=== PATIENT | female | born 1940 | race Caucasian/White ===

== ENCOUNTER 2019-01-02 21:24 | Inpatient (IN) | payer MEDICARE, MEDICAID, SELFPAY | END 2019-01-09 12:45 | disposition home health service (06) | DRG 660 | PROVIDERS: Admitting Provider Internal Medicine; Emergency Provider Emergency Medicine; PCP Internal Medicine; Visit Provider Hospitalist | DX: N10 Acute pyelonephritis (principal); C91.11 Chronic lymphocytic leukemia of B-cell type in remission; I50.32 Chronic diastolic (congestive) heart failure; I13.0 Hypertensive heart and chronic kidney disease with heart failure and stage 1 through stage 4 chronic kidney disease, or unspecified chronic kidney disease; I48.92 Unspecified atrial flutter; N18.4 Chronic kidney disease, stage 4 (severe); N13.2 Hydronephrosis with renal and ureteral calculous obstruction; Z28.21 Immunization not carried out because of patient refusal; Z66 Do not resuscitate; G47.33 Obstructive sleep apnea (adult) (pediatric); J44.9 Chronic obstructive pulmonary disease, unspecified; I48.0 Paroxysmal atrial fibrillation; K21.9 Gastro-esophageal reflux disease without esophagitis; Z86.010 Personal history of colon polyps; F41.8 Other specified anxiety disorders; M81.0 Age-related osteoporosis without current pathological fracture; M10.9 Gout, unspecified; E55.9 Vitamin D deficiency, unspecified; D63.1 Anemia in chronic kidney disease; Z98.41 Cataract extraction status, right eye; Z98.42 Cataract extraction status, left eye; Z96.1 Presence of intraocular lens; Z96.651 Presence of right artificial knee joint; Z85.820 Personal history of malignant melanoma of skin; N39.41 Urge incontinence; E66.9 Obesity, unspecified; E78.5 Hyperlipidemia, unspecified; Z92.21 Personal history of antineoplastic chemotherapy; Z90.710 Acquired absence of both cervix and uterus; M19.90 Unspecified osteoarthritis, unspecified site; I25.2 Old myocardial infarction; E83.42 Hypomagnesemia; B96.20 Unspecified Escherichia coli [E. coli] as the cause of diseases classified elsewhere | CPT/HCPCS: 36415; 51701; 71045; 74018; 74176; 74420; 80048; 80053; 80069; 81001; 83605; 83735; 83880; 84100; 84484; 85025; 87040; 87077; 87086; 87088; 87186; 93005; 94640; 96361; 96365; 96375; 96376; 99285; A9270; C2617; G0378; J0131; J0696; J1335; J2060; J2270; J2405; J2543; J2704; J3475; J7030; J7050; Q9966 ==

== ENCOUNTER 2019-05-25 10:55 | Outpatient (CLI) | payer MEDICARE, MEDICAID, SELFPAY ==
[2019-05-25 12:01] LABS: Basophils Percent Auto 0.6 % (0.2-1.2); Eosinophils Absolute Auto 0.3 K/mm3 (0-0.3); Eosinophils Percent Auto 4.3 % (0-4.4); Hematocrit 31.8 % (37.0-47.0); Hemoglobin 10.6 g/dL (12.0-15.0); Immature Granulocyte Absolute 0.02 K/mm3 (0.00-0.031); Immature Granulocyte Percent A 0.3 % (0-0.5); Lymphocytes Absolute Auto 1.19 K/mm3 (0.9-3.2); Lymphocytes Percent Auto 18.9 % (18.3-44.2); Mean Corpuscular HGB Conc 33.3 g/dl (32-36); Mean Corpuscular Hemoglobin 31.2 pg (26-34); Mean Corpuscular Volume 93.5 fl (80-100); Mean Platelet Volume 11.1 fl (7.4-10.4); Monocytes Absolute Auto 0.5 K/mm3 (0.1-0.6); Monocytes Percent Auto 8.1 % (2.6-8.5); Neutrophils Absolute Auto 4.3 K/mm3 (1.3-6.7); Neutrophils Percent Auto 67.8 % (45.5-73.1); Platelet Count Result 175 k/mm3 (150-375); White Blood Count 6.3 K/mm3 (4.5-10.0)
[2019-05-25 12:08] LABS: Alanine Aminotransferase 15 U/L (4-35); Albumin Level 3.8 g/dL (3.5-5.1); Alkaline Phosphatase 113 U/L (38-126); Aspartate Amino Transferase 19 U/L (14-36); Bilirubin,Total 0.3 mg/dL (0.2-1.3); Blood Urea Nitrogen 26 mg/dL (7-17); Calcium 9.4 mg/dL (8.4-10.2); Carbon Dioxide 25 mmol/L (22-30); Chloride 106 mmol/L (98-107); Cholesterol 147 mg/dL (0-200); Estimated Glomerular Filt Rate 26; Glucose 97 mg/dL (65-105); HDL Direct 41 mg/dL; Magnesium 1.5 mg/dL (1.6-2.3); Potassium 4.4 mmol/L (3.4-5.0); Sodium 138 mmol/L (137-145); Triglycerides 98 mg/dL (<150)
[2019-05-25 12:19] LABS: LDL Cholesterol Direct 89 mg/dL
[2019-05-30 14:55] LABS: BCR/abl Prior Result See Report
[2019-05-30 15:28] LABS: BCR/abl P190 Not Detected; BCR/abl P210 Not Detected
[2019-05-30 15:29] LABS: BCR/abl P190 Chg YES; BCR/abl P210 Chg YES
== END 2019-05-25 10:56 | disposition home or self-care (01) ==
PROVIDERS: Visit Provider Internal Medicine
DX: C92.10 Chronic myeloid leukemia, BCR/ABL-positive, not having achieved remission (principal); I10 Essential (primary) hypertension; E78.5 Hyperlipidemia, unspecified; Z79.899 Other long term (current) drug therapy
CPT/HCPCS: 36415; 80053; 80061; 81206; 81207; 83735; 85025

== ENCOUNTER → 2019-06-22 16:21 | Outpatient (CLI) | payer MEDICARE, MEDICAID, SELFPAY ==
--- NOTE | ~2019-06-22 | XR_ITS ---
EXAMINATION: XR abdomen/kub 1V INDICATION: Right flank pain TECHNIQUE: Supine views of the abdomen were obtained on 2 radiographs. COMPARISON: 01/04/2019 FINDINGS: The right internal ureteral stent has been removed. No definite urinary tract calculi are i dentified. The bowel gas pattern is normal. There is severe lumbar spondylosis. IMPRESSION: 1. No urinary tract calculi identified. Right internal ureteral stent removed. Reviewed, dictated and finalized at location A.
== END ==
PROVIDERS: PCP Internal Medicine; Visit Provider Urology
DX: R10.9 Unspecified abdominal pain (principal)
CPT/HCPCS: 74018

== ENCOUNTER 2019-10-05 11:22 | Outpatient (CLI) | payer MEDICARE, MEDICAID, SELFPAY ==
[2019-10-05 11:51] LABS: Basophils Percent Auto 0.6 % (0.2-1.2); Eosinophils Absolute Auto 0.2 K/mm3 (0-0.3); Eosinophils Percent Auto 2.6 % (0-4.4); Hematocrit 34.3 % (37.0-47.0); Hemoglobin 11.2 g/dL (12.0-15.0); Immature Granulocyte Absolute 0.02 K/mm3 (0.00-0.031); Immature Granulocyte Percent A 0.3 % (0-0.5); Lymphocytes Percent Auto 19.8 % (18.3-44.2); Mean Corpuscular HGB Conc 32.7 g/dl (32-36); Mean Corpuscular Hemoglobin 31.3 pg (26-34); Mean Corpuscular Volume 95.8 fl (80-100); Mean Platelet Volume 10.5 fl (7.4-10.4); Monocytes Absolute Auto 0.4 K/mm3 (0.1-0.6); Monocytes Percent Auto 6.6 % (2.6-8.5); Neutrophils Absolute Auto 4.6 K/mm3 (1.3-6.7); Neutrophils Percent Auto 70.1 % (45.5-73.1); Platelet Count Result 194 k/mm3 (150-375); Red Blood Count 3.58 M/mm3 (4.2-5.4); Red Cell Distribution Width 13.7 % (11.5-14.5); White Blood Count 6.6 K/mm3 (4.5-10.0)
[2019-10-05 12:03] LABS: Alanine Aminotransferase 24 U/L (4-35); Albumin Level 3.8 g/dL (3.5-5.1); Alkaline Phosphatase 125 U/L (38-126); Aspartate Amino Transferase 27 U/L (14-36); Bilirubin,Total 0.3 mg/dL (0.2-1.3); Blood Urea Nitrogen 28 mg/dL (7-17); Calcium 9.2 mg/dL (8.4-10.2); Carbon Dioxide 25 mmol/L (22-30); Chloride 104 mmol/L (98-107); Estimated Glomerular Filt Rate 29; Glucose 101 mg/dL (65-105); Sodium 137 mmol/L (137-145)
[2019-10-09 13:54] LABS: BCR/abl Prior Result See Report; BCR/abl1/abl1% (IS) 0.032 %
[2019-10-09 14:40] LABS: BCR/abl P210 Detected
[2019-10-09 14:41] LABS: BCR/abl P210 Chg YES
== END 2019-10-05 11:23 | disposition home or self-care (01) ==
PROVIDERS: PCP Internal Medicine; Visit Provider Internal Medicine Medical Oncology
DX: C92.10 Chronic myeloid leukemia, BCR/ABL-positive, not having achieved remission (principal)
CPT/HCPCS: 36415; 80053; 81207; 85025

== ENCOUNTER 2019-11-11 14:55 | Outpatient (CLI) | payer MEDICARE, MEDICAID, SELFPAY ==
--- NOTE | ~2019-11-11 | XR_ITS ---
EXAMINATION: XR abdomen/kub 1V DATE: 11/11/2019 15:15 INDICATION: Right flank pain TECHNIQUE: A supine view of the abdomen on 2 radiographs was obtained. COMPARISON: 06/22/2019 FINDINGS: Normal bowel gas pattern with no dilated gas-filled loops of bowel. Similar pattern of tiny round phl eboliths and thin curvilinear atherosclerotic calcifications in the pelvis. Additional atheroscleroti c calcification is along the splenic artery and the left upper quadrant. No evident urolithiasis. 20 degrees lumbar levoscoliosis measured between T12 and L3. IMPRESSION: 1. No calcifications suspicious for urolithiasis. Reviewed, dictated and finalized at location A.
== END 2019-11-11 14:56 | disposition home or self-care (01) ==
LOC: ANHIMG 15:01
PROVIDERS: PCP Internal Medicine; Visit Provider Urology
DX: R10.9 Unspecified abdominal pain (principal)
CPT/HCPCS: 74018

== ENCOUNTER 2020-02-03 12:41 | Outpatient (CLI) | payer MEDICARE, MEDICAID, SELFPAY ==
--- NOTE | 2020-02-03 15:00 | NEURO_ITS ---
Impression: # Complains of paresthesia of upper and lower extremities. # Significant edema of lower extremities noted. # Evolving left Carpal Tunnel Syndrome. # Right ulnar neuropathy across the elbow. # Decreased responses in lower extremities (edema of lower extremities). # Needle/EMG exam revealed decreased motor unit potentials. No fibs or fasciculation noted. Nerve Conduction Studies Anti Sensory Summary Table Stim Site NR Peak (ms) P-T Amp (?V) Site1 Site2 Delta-P (ms) Dist (cm) [place] (m/s) Left Median Anti Sensory (2-3nd Digit) Wrist 3.5 26.7 Wrist 2-3nd Digit 3.5 14.0 40 Wrist 3.3 11.5 Wrist 2-3nd Digit 3.5 14.0 40 Right Median Anti Sensory (2-3nd Digit) Wrist 2.9 39.1 Wrist 2-3nd Digit 2.9 14.0 48 Wrist 2.8 41.5 Wrist 2-3nd Digit 2.9 14.0 48 Left Radial Anti Sensory (Base 1st Digit) Wrist 2.3 16.7 Wrist Base 1st Digit 2.3 0.0 Right Radial Anti Sensory (Base 1st Digit) Wrist 2.6 13.8 Wrist Base 1st Digit 2.6 0.0 Left Sup Fibular Anti Sensory (Ant Lat Mall) 14 cm 3.9 5.2 14 cm Ant Lat Mall 3.9 16.0 41 Right Sup Fibular Anti Sensory (Ant Lat Mall) 14 cm 3.8 19.5 14 cm Ant Lat Mall 3.8 16.0 42 Left Sural Anti Sensory (Lat Mall) Calf 3.9 10.4 Calf Lat Mall 3.9 16.0 41 Right Sural Anti Sensory (Lat Mall) Calf 3.6 11.8 Calf Lat Mall 3.6 16.0 44 Left Ulnar Anti Sensory (5th Digit) Wrist 2.7 29.3 Wrist 5th Digit 2.7 14.0 52 Right Ulnar Anti Sensory (5th Digit) Wrist 2.7 26.7 Wrist 5th Digit 2.7 14.0 52 Motor Summary Table Stim Site NR Onset (ms) O-P Amp (mV) Site1 Site2 Delta-0 (ms) Dist (cm) [place] (m/s) Left Median Motor (Abd Poll Brev) Wrist 4.1 2.5 Elbow Wrist 5.3 31.0 58 Elbow 9.4 2.0 Right Median Motor (Abd Poll Brev) Wrist 3.1 1.7 Elbow Wrist 4.8 26.0 54 Elbow 7.9 0.9 Left Peroneal Motor (Vastus Med) Ankle 4.4 1.0 Popit Ankle 7.5 37.0 49 Popit 11.9 0.9 Right Peroneal Motor (Vastus Med) Ankle 4.0 2.8 Popit Ankle 8.5 38.0 45 Popit 12.5 0.9 Left Tibial Motor (Abd Johnson Brev) Ankle 4.9 1.0 Knee Ankle 9.1 41.0 45 Knee 14.0 0.3 Right Tibial Motor (Abd Johnson Brev) Ankle 4.5 2.5 Knee Ankle 9.3 41.0 44 Knee 13.8 0.3 Left Ulnar Motor (Abd Dig Minimi) Wrist 2.6 6.3 A Elbow Wrist 5.1 29.0 57 A Elbow 7.7 4.6 Right Ulnar Motor (Abd Dig Minimi) Wrist 2.4 4.9 A Elbow Wrist 6.3 28.0 44 A Elbow 8.7 2.3 B Elbow Wrist 4.4 20.0 45 B Elbow 6.8 1.2 F Wave Studies NR F-Lat (ms) L-R F-Lat (ms) Left Median (Mrkrs) (Abd Poll Brev) 29.92 0.43 Right Median (Mrkrs) (Abd Poll Brev) 30.35 0.43 Left Peroneal (Mrkrs) (EDB) 55.23 1.18 Right Peroneal (Mrkrs) (EDB) 56.41 1.18 Left Tibial (Mrkrs) (Abd Hallucis) 57.69 0.00 Right Tibial (Mrkrs) (Abd Hallucis) 57.69 0.00 Left Ulnar (Mrkrs) (Abd Dig Min) 30.68 0.00 Right Ulnar (Mrkrs) (Abd Dig Min) 30.68 0.00 EMG Side Muscle Nerve Root Ins Act Fibs Amp Dur Recrt Comment Right 1stDorInt Ulnar C8-T1 Nml Nml Nml Nml Nml Right Ext Indicis Radial (Post Int) C7-8 Nml Nml Nml Nml Nml Right Ext Digitorum Radial (Post Int) C7-8 Nml Nml Nml Nml Nml Right BrachioRad Radial C5-6 Nml Nml Nml N
== END 2020-02-03 12:42 | disposition home or self-care (01) ==
LOC: ANHNEURO 12:42
PROVIDERS: PCP Internal Medicine; Visit Provider Internal Medicine
DX: R20.2 Paresthesia of skin (principal); G56.02 Carpal tunnel syndrome, left upper limb; G56.21 Lesion of ulnar nerve, right upper limb
CPT/HCPCS: 95886; 95913

== ENCOUNTER 2020-05-19 09:24 | Outpatient (CLI) | payer MEDICARE, MEDICAID, SELFPAY ==
--- NOTE | ~2020-05-19 | XR_ITS ---
EXAMINATION: XR lumbar spine 2-3V EXAM DATE: 05/19/2020 09:52 INDICATION: M54.5 - Low back pain, no known recent injury. TECHNIQUE: Lumber spine frontal, lateral, lateral L5-S1 projections for interpretation. Comparison is made to prior examination from 11/11/2004. FINDINGS: There is mild to moderate levoscoliosis centered at the L1-2 level. Moderate to severe disc disease L1-2 and L2-3, mild at the other thoracolumbar levels. Scoliosis and disc disease have signi ficantly progressed compared to 2004. There is moderate lumbar facet arthropathy. There is aortic art eriosclerosis. IMPRESSION: 1. Mild to moderate upper lumbar levoscoliosis. 2. Moderate to severe L1-L3 disc disease. 3. Moderate facet arthropathy. Reviewed, dictated and finalized at location A. E CONSULTANT
[2020-05-19 09:43] LABS: Basophils Percent Auto 0.4 % (0.2-1.2); Eosinophils Absolute Auto 0.3 K/mm3 (0-0.3); Eosinophils Percent Auto 4.3 % (0-4.4); Hematocrit 34.6 % (37.0-47.0); Hemoglobin 11.2 g/dL (12.0-15.0); Immature Granulocyte Absolute 0.02 K/mm3 (0.00-0.031); Immature Granulocyte Percent A 0.3 % (0-0.5); Lymphocytes Absolute Auto 1.47 K/mm3 (0.9-3.2); Mean Corpuscular HGB Conc 32.4 g/dl (32-36); Mean Corpuscular Hemoglobin 31.7 pg (26-34); Mean Platelet Volume 10.4 fl (7.4-10.4); Monocytes Absolute Auto 0.5 K/mm3 (0.1-0.6); Monocytes Percent Auto 6.9 % (2.6-8.5); Neutrophils Absolute Auto 4.4 K/mm3 (1.3-6.7); Neutrophils Percent Auto 66.1 % (45.5-73.1); Platelet Count Result 171 k/mm3 (150-375); Red Blood Count 3.53 M/mm3 (4.2-5.4); Red Cell Distribution Width 14.1 % (11.5-14.5); White Blood Count 6.7 K/mm3 (4.5-10.0)
[2020-05-19 10:05] LABS: Alanine Aminotransferase 14 U/L (4-35); Alkaline Phosphatase 110 U/L (38-126); Anion Gap 2 mmol/L (8-16); Aspartate Amino Transferase 19 U/L (14-36); Bilirubin,Total 0.3 mg/dL (0.2-1.3); Blood Urea Nitrogen 34 mg/dL (7-17); Calcium 9.5 mg/dL (8.4-10.2); Carbon Dioxide 31 mmol/L (22-30); Chloride 104 mmol/L (98-107); Cholesterol 134 mg/dL (0-200); Estimated Glomerular Filt Rate 27; Glucose 101 mg/dL (65-105); HDL Direct 46 mg/dL; Potassium 4.5 mmol/L (3.4-5.0); Sodium 137 mmol/L (137-145); Triglycerides 111 mg/dL (<150)
[2020-05-19 10:15] LABS: LDL Cholesterol Direct 69 mg/dL
[2020-05-19 10:28] LABS: Iron 76 ug/dL (37-170)
[2020-05-19 10:37] LABS: Percent Iron Saturation 20 % (20-50)
== END 2020-05-19 09:25 | disposition home or self-care (01) ==
PROVIDERS: PCP Internal Medicine; Visit Provider Internal Medicine
DX: E78.5 Hyperlipidemia, unspecified (principal); D63.1 Anemia in chronic kidney disease; N18.4 Chronic kidney disease, stage 4 (severe); Z79.899 Other long term (current) drug therapy; I12.9 Hypertensive chronic kidney disease with stage 1 through stage 4 chronic kidney disease, or unspecified chronic kidney disease; M51.36 Other intervertebral disc degeneration, lumbar region
CPT/HCPCS: 36415; 72100; 80053; 80061; 83540; 83550; 85025

== ENCOUNTER 2020-06-02 10:25 | Outpatient (CLI) | payer MEDICARE, MEDICAID, SELFPAY ==
[2020-06-02 11:17] LABS: Basophils Absolute Auto 0.1 K/mm3 (0.0-0.1); Basophils Percent Auto 0.6 % (0.2-1.2); Eosinophils Absolute Auto 0.3 K/mm3 (0-0.3); Eosinophils Percent Auto 3.6 % (0-4.4); Hematocrit 33.9 % (37.0-47.0); Hemoglobin 11.2 g/dL (12.0-15.0); Immature Granulocyte Absolute 0.04 K/mm3 (0.00-0.031); Immature Granulocyte Percent A 0.5 % (0-0.5); Lymphocytes Absolute Auto 1.64 K/mm3 (0.9-3.2); Lymphocytes Percent Auto 20.2 % (18.3-44.2); Mean Corpuscular Volume 96.9 fl (80-100); Monocytes Absolute Auto 0.5 K/mm3 (0.1-0.6); Monocytes Percent Auto 6.7 % (2.6-8.5); Neutrophils Absolute Auto 5.6 K/mm3 (1.3-6.7); Neutrophils Percent Auto 68.4 % (45.5-73.1); Platelet Count Result 187 k/mm3 (150-375); Red Cell Distribution Width 13.9 % (11.5-14.5); White Blood Count 8.1 K/mm3 (4.5-10.0)
[2020-06-02 11:28] LABS: Alanine Aminotransferase 17 U/L (4-35); Albumin Level 3.9 g/dL (3.5-5.1); Alkaline Phosphatase 104 U/L (38-126); Anion Gap 8 mmol/L (8-16); Aspartate Amino Transferase 24 U/L (14-36); Bilirubin,Total 0.4 mg/dL (0.2-1.3); Blood Urea Nitrogen 33 mg/dL (7-17); Carbon Dioxide 27 mmol/L (22-30); Chloride 102 mmol/L (98-107); Estimated Glomerular Filt Rate 27; Glucose 100 mg/dL (65-105); Potassium 4.7 mmol/L (3.4-5.0); Sodium 137 mmol/L (137-145)
== END 2020-06-02 10:26 | disposition home or self-care (01) ==
PROVIDERS: PCP Internal Medicine; Visit Provider Internal Medicine Medical Oncology
DX: C92.10 Chronic myeloid leukemia, BCR/ABL-positive, not having achieved remission (principal)
CPT/HCPCS: 36415; 80053; 85025; 88365

== ENCOUNTER 2020-09-26 15:43 | Inpatient (IN) | payer MEDICARE, MEDICAID, SELFPAY ==
[2020-09-26] VITALS (8 sets, daily range): BP systolic 123–158; BP diastolic 60–87; PULSE 67–96; RESP 18–24; TEMP 37.3–37.7; O2SAT 95–99; BMI 38.7
--- NOTE | ~2020-09-26 | XR_ITS ---
XR chest 2V DATE: 09/26/2020 16:49 INDICATION: Cough. History of COPD, asthma TECHNIQUE: PA and lateral views COMPARISON: 01/04/2019 portable AP chest 12/26/2018 2 view chest FINDINGS: Borderline heart size. Aortic calcification. Left-sided dual-lead pacemaker device with leads overlying right atrium and right ventricle. Minimal atelectasis is suggested in the lower lung zones. There is mild linear atelectasis or fibroti c change suggested over the anterior segment of the lungs on the lateral view, stable or mildly incre ased since 12/26/2018. Diffuse osteopenia. Prominent degenerative changes are noted in the thoracolumbar spine area. IMPRESSION: Minimal atelectasis at the lung bases Probable chronic linear atelectasis or scarring in the region of the anterior segment of the upper lo bes on the lateral view More definitive evaluation may be of assistance with CT thorax examination. Reviewed, dictated and finalized at location B. IMPRESSION: Minimal atelectasis at the lung bases Probable chronic linear atelectasis or scarring in the region of the anterior s egment of the upper lobes on the lateral view More definitive evaluation may be of assistance with CT thorax examination.
--- NOTE | ~2020-09-26 | CT_ITS ---
EXAMINATION: CT diagnostic chest wo con EXAM DATE: 09/26/2020 20:28 INDICATION: Worsening cough. TECHNIQUE: Spiral CT of the chest without contrast. Axial, coronal and sagittal images of the chest were reviewed. Coronal maximum intensity pixel images of chest reviewed. The dose-length product ( DLP) for this examination was 264.84 mGy-cm. The exposure was tailored according to patient size (au to mA exposure control), and iterative reconstruction (ASIR) was used as additional dose reduction te chnique. Correlation is made to chest x-ray earlier same date. FINDINGS: Small to moderate amount of bilateral patchy peripheral predominant groundglass opacities. Appearance is typical of early stage COVID 19 pneumonia. Less likely acute possibilities include in fluenza, pulmonary edema or hemorrhage. Some chronic processes that can have this appearance include cryptogenic organizing pneumonia, desquamative interstitial pneumonia, nonspecific interstitial pneum onia, drug toxicity, connective tissue disease. Please clinically correlate and test as appropriate. There are no pleural or pericardial effusions. Tracheobronchial tree is patent. There is no media stinal, hilar or axillary lymphadenopathy. There is no pneumothorax. Heart normal in size. Pace maker/AICD device. There is small sliding gastroesophageal hiatal hernia. Incompletely imaged fluid density lesion superior pole right kidney statistically most likely cyst. There is thoracic spondylo sis without osteoblastic or osteolytic lesions identified. IMPRESSION: Patchy bilateral groundglass airspace disease. COVID pneumonia should be considered given community prevalence, with less likely possibilities above. Reviewed, dictated and finalized at location A. IMPRESSION: Patchy bilateral groundglass airspace disease. COVID pneumonia shou ld be considered given community prevalence, with less likely possibilities abo ve.
[2020-09-26 16:19] LABS: Basophils Percent Auto 0.4 % (0.2-1.2); Eosinophils Percent Auto 0.4 % (0-4.4); Hematocrit 40.1 % (37.0-47.0); Hemoglobin 13.1 g/dL (12.0-15.0); Immature Granulocyte Absolute 0.03 K/mm3 (0.00-0.031); Immature Granulocyte Percent A 0.6 % (0-0.5); Lymphocytes Absolute Auto 1.24 K/mm3 (0.9-3.2); Lymphocytes Percent Auto 23.8 % (18.3-44.2); Mean Corpuscular HGB Conc 32.7 g/dl (32-36); Mean Corpuscular Hemoglobin 30.8 pg (26-34); Mean Corpuscular Volume 94.4 fl (80-100); Mean Platelet Volume 10.7 fl (7.4-10.4); Monocytes Absolute Auto 0.5 K/mm3 (0.1-0.6); Monocytes Percent Auto 9.2 % (2.6-8.5); Neutrophils Absolute Auto 3.4 K/mm3 (1.3-6.7); Neutrophils Percent Auto 65.6 % (45.5-73.1); Platelet Count Result 211 k/mm3 (150-375); Red Blood Count 4.25 M/mm3 (4.2-5.4); Red Cell Distribution Width 14.2 % (11.5-14.5); White Blood Count 5.2 K/mm3 (4.5-10.0)
[2020-09-26 16:26] LABS: Alanine Aminotransferase 15 U/L (4-35); Albumin Level 4.4 g/dL (3.5-5.1); Alkaline Phosphatase 113 U/L (38-126); Anion Gap 13 mmol/L (8-16); Aspartate Amino Transferase 29 U/L (14-36); Bilirubin,Total 0.5 mg/dL (0.2-1.3); Blood Urea Nitrogen 19 mg/dL (7-17); Calcium 9.4 mg/dL (8.4-10.2); Carbon Dioxide 22 mmol/L (22-30); Chloride 99 mmol/L (98-107); Estimated CRCL calculation 26 ml/min; Estimated Glomerular Filt Rate 29; Glucose 88 mg/dL (65-105); Lipase 98 U/L (23-300); Potassium 3.8 mmol/L (3.4-5.0); Sodium 134 mmol/L (137-145)
--- NOTE | 2020-09-26 19:16 | ED.URI ---
HPI - URI/Sore Throat General Chief Complaint: Upper Respiratory Infection Stated Complaint: coughing Time Seen by Provider: 09/26/20 19:01 Source: patient and RN notes reviewed Mode of arrival: wheelchair Limitations: no limitations History of Present Illness HPI Narrative: This is a 80 year old female with history of asthma who presents for evaluation of worsening cough. She reports having a nonproductive cough for 2 weeks. Her cough is getting worse and she is having cough spells that cause her to feel sob and dizzy. She also reports chest tightness. She uses albuterol nebulizer twice a day and this does improve her tightness. She also reports she developed fever 2 days ago and she had fever 102 F last night. She denies sick contacts but she is not vaccinated for covid. She also reports diarrhea today that is watery but she denies abdominal pain, nausea or vomiting. She thinks she is passing blood in her urine. Related Data Home Medications Medication Instructions Recorded Confirmed aspirin 81 mg tablet,delayed 81 mg PO DAILY 02/17/19 09/27/20 release diphenhydramine HCl 25 mg tablet 25 mg PO TID 02/17/19 09/27/20 isosorbide mononitrate 30 mg 30 mg PO DAILY 05/15/20 09/27/20 tablet,extended release 24 hr albuterol sulfate [ProAir HFA] 2 puff INHALATION Q6H PRN 09/27/20 09/27/20 allopurinol 100 mg PO DAILY 09/27/20 09/27/20 bumetanide 1 mg PO DAILY 09/27/20 09/27/20 cholecalciferol (vitamin D3) 50 mcg PO DAILY 09/27/20 09/27/20 cyanocobalamin (vitamin B-12) 2,500 mcg SUBLINGUAL DAILY 09/27/20 09/27/20 esomeprazole magnesium 40 mg PO DAILY 09/27/20 09/27/20 fluticasone propion-salmeterol 1 inh INHALATION BID 09/27/20 09/27/20 [Preethi Inhub] lamotrigine 25 mg PO DAILY 09/27/20 09/27/20 magnesium oxide 400 mg PO DAILY 09/27/20 09/27/20 melatonin 5 mg PO HS 09/27/20 09/27/20 potassium chloride 20 meq PO DAILY 09/27/20 09/27/20 simvastatin 40 mg PO DAILY 09/27/20 09/27/20 sotalol 80 mg PO BID 09/27/20 09/27/20 triamcinolone acetonide 1 applic TOPICAL BID 09/27/20 09/27/20 Allergies Allergy/AdvReac Type Severity Reaction Status Date / Time lisinopril Allergy Intermediate Unknown Verified 09/27/20 00:31 nitroglycerin Allergy Mild SKIN RASH Verified 09/27/20 00:31 UNDER NITRO PATCH NORMA Inhibitors Allergy Unknown Unknown Verified 09/27/20 00:31 phenazopyridine Allergy Unknown Unknown Verified 09/27/20 00:31 Review of Systems Review of Systems: All systems reviewed & are unremarkable except as noted in HPI and below PMFSH Past Medical History Medical History (Updated 09/27/20 @ 07:25 by Colleen Moses MD) Anemia of chronic disease Benign essential hypertension Chronic obstructive pulmonary disease, unspecified CKD (chronic kidney disease) stage 4, GFR 15-29 ml/min CML (chronic myelocytic leukemia) in remission since 2016 Depression with anxiety Diastolic CHF echo August 2017 GERD (gastroesophageal reflux disease) Gout Hyperlipidemia DIVINA (obstructive sleep apnea) (~11/2018) BiPAP 12/20 Osteoporosis Paroxysmal A-fib Peripheral neuropathy Sick sinus syndrome Umbilical hernia without obstruction and without gangrene Vitamin D deficiency Surgical History Surgical History (Updated 09/27/20 @ 03:12 by Myranda Day DO) Cardiac pacemaker in situ (~08/2017) History of appendectomy History of bladder surgery History of colonoscopy with polypectomy History of melanoma excision right nares History of total hysterectomy with bilateral salpingo-oophorectomy (BSO) History of total right knee replacement (~10/2008) Status post cataract extraction of both eyes with insertion of intraocular lens Status post cholecystectomy Family History Family History (Updated 09/27/20 @ 03:16 by Myranda Day DO) Mother Hypertension Breast cancer Heart disease Father Coronary artery disease Sibling Congestive heart failure Heart disease Lung cancer brother Bone cancer
--- NOTE | 2020-09-26 19:22 | ECG_ITS ---
Measurements Intervals [place] Rate: 75 P: 129 NE: 233 QRS: -35 QRSD: 76 T: 54 QT: 392 QTc: 438 Interpretive Statements ELECTRONIC ATRIAL PACEMAKER LEFT AXIS DEVIATION LOW QRS VOLTAGE IN PRECORDIAL LEADS POOR R WAVE PROGRESSION, ANTERIOR LEADS BORDERLINE ST-T WAVE ABNORMALITY- HIGH LATERAL LEADS BASELINE ARTIFACT- I, II, III, AVR, AVL, AVF, V1-V6 BORDERLINE ECG Electronically Signed On 09-26-2020 20:31:48 CDT by Mike Savage D.O.
[2020-09-26 19:38] LABS: Alveolar/Arterial O2 Gradient 42.7 mmHg; Base Excess ABG -5.2 mEq/l (+/-2.0); Carboxyhemoglobin 0.4 % THb (0-2.0); Fractional Inspired Oxygen 21 %; Methemoglobin ABG 0.1 %THb (0-1.5); Oxygen Saturation ABG 93.3 % (95.0-100.0); Oxyhemoglobin 92.8 % THb (90.0-100.0); PO2 ABG 67.5 mmHg (80.0-100.0); PO2 FiO2 Ratio Arterial Blood 3.21 %; Reduced Hemoglobin 6.7 %THb (0-5.0); pH ABG 7.378 (7.350-7.450)
[2020-09-26 19:39] LABS: Device ROOM AIR; Modified Allen's Test Pass; Site Drawn RIGHT RADIAL
[2020-09-26] MEDS: IPRATROPIUM BR 0.02% INH SOLN 0.5 MG/2.5 ML VIAL INHALATION (19:42)
[2020-09-26] MEDS: ALBUTEROL SULFATE NEB 2.5 MG/0.5 ML INH 5 MG INHALATION (19:42)
[2020-09-26] MEDS: predniSONE 20 MG TABLET 60 MG PO (19:52)
[2020-09-26 20:05] LABS: Troponin I 0.029 ng/mL (0.000-0.034)
[2020-09-26 20:40] LABS: Prothrombin Time 12.7 Seconds (11.1-14.7)
[2020-09-26 20:43] LABS: Partial Thromboplastin Time 29.8 SECONDS (22.3-36.8)
[2020-09-26] MEDS: LACTATED RINGERS 1,000 ML 999 ML IV CONT (21:54)
--- NOTE | 2020-09-26 23:21 | ADMGEN ---
This patient, Edel Rush, was admitted to 3 Med Surg Room 315-01 at 2315 . Patient/family oriented to hospital policies and general routines including ID bracelet, bed and alarms, visiting hours, pain management, procedures, bathroom and other care routines, personal items, smoking policy, room service/diet, and visiting hours. Information on how to activate the Rapid Response Team has been discussed. Patient/Family are encouraged to report perceived risks to care and to ask questions if they do not understand what they are told or what they should do.
[2020-09-27] VITALS (10 sets, daily range): BP systolic 136–167; BP diastolic 60–96; PULSE 66–78; RESP 14–22; TEMP 36–36.9; O2SAT 93–97
--- NOTE | 2020-09-27 02:52 | PM.IMHP ---
H&P: HPI History of Present Illness Date/Time: 09/27/20 02:52 Chief Complaint: Fever Narrative: 80-year-old female with a past medical history COPD, chronic kidney disease, CML (in remission), obstructive sleep apnea and essential hypertension who presented to the ER for fever and cough. The patient reported that she had had 2 weeks of nonproductive cough. She has been using her nebulizer at home with some improvement in her symptoms. However over the last 3 days she has now developed fever with a T-max of 102? at home. She denies any recent ill contacts. Her son who is a clamp truck driver recently visited her from [place]. He left her also few days before she became ill. She has not had COVID vaccine. She does not want the COVID vaccine. She denies any loss of sense of taste or smell. She reports that she really has not felt bad besides having cough. She denies any chest pain or significant shortness of breath from baseline. She has noticed so wheezing more over the last week or so. She has been using her nebulizers at home and they have been helping. She denies any headache, myalgias or dysuria. She did think her urine may be slightly bloody. She has not noticed any orthopnea, lower extremity edema, calf pain. She notices she really started wheezing significantly after she received treatments in the ER. She reports a good appetite. She denies any nausea or vomiting but has been having up to 4 loose stools a day for the last 3 days. She reports that is not unusual for to have intermittent diarrhea and did not think much of having loose stools. Stools have been brown and watery. She denies any associated abdominal pain. She has not had any recent antibiotic exposures or travel. She has been maintaining social distancing. the patient was not hypoxic at rest but with ambulation her oxygen saturations dropped to 85%. Review of Systems Review of Systems: Narrative: 12 systems were reviewed with pertinent positives and negatives per HPI. Except as documented in the HPI, all other systems were reviewed and are negative. FOR[facility]LY [facility] Past Medical History Medical History Anemia of chronic disease Benign essential hypertension Chronic obstructive pulmonary disease, unspecified CKD (chronic kidney disease) stage 4, GFR 15-29 ml/min CML (chronic myelocytic leukemia) in remission since 2017 Depression with anxiety Diastolic CHF echo August 2017 GERD (gastroesophageal reflux disease) Gout Hyperlipidemia DIVINA (obstructive sleep apnea) (~11/2018) BiPAP 12/20 Osteoporosis Paroxysmal A-fib Peripheral neuropathy Sick sinus syndrome Umbilical hernia without obstruction and without gangrene Vitamin D deficiency Surgical History Surgical History (Updated 09/27/20 @ 07:51 by Myranda Day DO) Cardiac pacemaker in situ (~08/2017) History of appendectomy History of bladder surgery History of colonoscopy with polypectomy History of melanoma excision right nares History of total hysterectomy with bilateral salpingo-oophorectomy (BSO) History of total left knee replacement (TKR) History of total right knee replacement (~10/2008) Status post cataract extraction of both eyes with insertion of intraocular lens Status post cholecystectomy Family History Family History (Updated 09/27/20 @ 03:16 by Myranda Day DO) Mother Hypertension Breast cancer Heart disease Father Coronary artery disease Sibling Congestive heart failure Heart disease Lung cancer brother Bone cancer sister Son COPD (chronic obstructive pulmonary disease) 2 sons Other Family history of tuberculosis Social History Social History (Updated 09/27/20 @ 03:23 by Myranda Day DO) Social History: She is and lives in a senior apartment. She uses a walker and wheelchair for mobility. Primary care physician: Dr. Dorian Nunez Code status: DNR /DNI Surrogate decision
--- NOTE | 2020-09-27 08:04 | PC.NURSE ---
ER called to report that patient may have had a mild-moderate reaction to Azithromycin. She stated that she had a reddened arm and irritation at the site. She said she had no increase in SOB, information passed on to receiving nurse.
[2020-09-27] MEDS: CYANOCOBALAMIN 500 MCG TABLET 2500 MCG BY MOUTH (08:29)
[2020-09-27] MEDS: SIMVASTATIN 20 MG TABLET 40 MG PO (08:30)
[2020-09-27] MEDS: SOTALOL HCL 80 MG TABLET PO ×2 (08:30→21:34)
[2020-09-27] MEDS: MAGNESIUM OXIDE 400 MG TABLET PO (08:30)
[2020-09-27] MEDS: allopurinoL 100 MG TABLET PO (08:31)
[2020-09-27] MEDS: ISOSORBIDE MONONITRATE 30 MG TAB.ER.24H PO (08:31)
[2020-09-27] MEDS: ASPIRIN 81 MG ENTERIC TABLET PO (08:31)
[2020-09-27] MEDS: PANTOPRAZOLE 40 MG TABLET PO (08:31)
[2020-09-27] MEDS: BUMETANIDE 1 MG TABLET PO (08:31)
[2020-09-27] MEDS: CHOLECALCIFEROL 1,000 UNITS TABLET 2000 UNITS PO (08:31)
[2020-09-27] MEDS: lamoTRIgine 25 MG TABLET PO (08:31)
[2020-09-27] MEDS: POTASSIUM CHLORIDE 20 MEQ TABLET.ER PO (08:31)
[2020-09-27] MEDS: ENOXAPARIN 40 MG/0.4 ML SYRINGE SUB-Q ×2 (08:33→21:34)
[2020-09-27] MEDS: FLUTICASONE/SALMETEROL 115-21 MCG (*SP) INHALER 2 PUFF INHALATION ×2 (08:36→20:23)
[2020-09-27] MEDS: ALBUTEROL SULFATE (*SP) INHALER 4 PUFF INHALATION ×3 (08:36→20:23)
[2020-09-27] MEDS: predniSONE 20 MG TABLET 60 MG PO (11:26)
[2020-09-27] MEDS: TRIAMCINOLONE ACET 0.1% CREAM 15 GM TUBE 1 APPLIC TOPICAL ×2 (15:39→15:53)
--- NOTE | 2020-09-27 16:07 | PM.IMPN ---
Progress Note: A&P Assessment and Plan (1) Pneumonia: Qualifiers: Pneumonia type: due to unspecified organism Laterality: bilateral Lung location: unspecified part of lung Qualified Code(s): J18.9 - Pneumonia, unspecified organism Code(s): J18.9 - Pneumonia, unspecified organism Status: Acute Assessment and Plan: AWAITING COVID PCR CONTINUE ROCEPHIN AND ZITHROMAX AWAIT CULTURES (2) Suspected COVID-19 virus infection: Code(s): Z20.822 - Contact with and (suspected) exposure to COVID-19 Status: Acute Assessment and Plan: AWAITING COVID PCR (3) Acute respiratory failure with hypoxemia: Code(s): J96.01 - Acute respiratory failure with hypoxia Status: Acute Assessment and Plan: CONTINUE SUPPLEMENTAL OXYGEN BY NASAL CANNULA (4) Chronic obstructive pulmonary disease, unspecified: Qualifiers: COPD type: COPD with acute lower respiratory infection Qualified Code(s): J44.0 - Chronic obstructive pulmonary disease with (acute) lower respiratory infection Code(s): J44.9 - Chronic obstructive pulmonary disease, unspecified Status: Acute Assessment and Plan: BREATHING TREATMENTS (5) CKD (chronic kidney disease) stage 4, GFR 15-29 ml/min: Code(s): N18.4 - Chronic kidney disease, stage 4 (severe) Status: Acute Assessment and Plan: BUN AND CREATININE AT PATIENT'S BASELINE (6) DIVINA (obstructive sleep apnea): Onset Date: ~11/2018 Code(s): G47.33 - Obstructive sleep apnea (adult) (pediatric) Status: Acute Assessment and Plan: CPAP AT NIGHTTIME Additional Plan STATES THAT SHE FEELS BETTER TODAY The patient presents with hypoxemia and pneumonia highly suspicious for COVID 19 on imaging. Patient is on isolation and COVID PCR is pending. Patient is on empiric antibiotic therapy with Rocephin and azithromycin to cover her possible community-acquired pneumonia. If COVID testing comes back positive will discontinue Rocephin and azithromycin. Blood cultures are pending. If Covid testing comes back positive will add Remdesivir. The patient has COPD with underlying acute lower respiratory tract infection. She is on prednisone currently for possible COPD exacerbation. Will continue albuterol inhalers 4 puffs q.6 hours and Spiriva inhaled daily. Will avoid nebulizers as patient likely has COVID 19. If COVID testing comes back positive will discontinue prednisone and switched to dexamethasone. will continue home inhaled corticosteroid. Patient's kidney function is at baseline. She does have CHF but appear to be euvolemic will continue home sotalol, potassium , Imdur and Bumex. Home BiPAP settings have been ordered. Patient has been admitted as observation status. Subjective Date/time seen: 09/27/20 16:07 I FEEL BETTER Review of Systems Review of Systems: All systems reviewed & are unremarkable except as noted in HPI and below Exam Narrative: Exam Narrative: LAYING IN BED Const: General: comfortable, no acute distress, well developed, alert and awake Nutritional Appearance: average body habitus Orientation/consciousness: patient oriented x3 HENMT: Head: normal to inspection, normocephalic and atraumatic Ears: hearing grossly normal bilaterally Face and sinus: normal facial exam Eyes: General: appearance normal, both eyes and all related structures Pupils: Equal, round and reactive pupils present EOM: EOMs intact bilaterally Neck: Neck: full ROM, no lymphadenopathy and no JVD Thyroid: thyroid normal Lymphatic: no lymphadenopathy noted Resp: Effort & Inspection: normal respiratory effort and able to speak in complete sentences Auscultation: clear to auscultation bilaterally Cardio: Jugular venous distension: no JVD Rate: regular rate Rhythm: regular rhythm Heart sounds: S1 normal heart sound present and S2 normal heart sound present GI: GI Palp: Yes Soft to palpation and
[2020-09-27 16:35] LABS: SARS-CoV-2 RNA PCR Positive
[2020-09-27 17:59] LABS: Add Urine Microscopic? YES; Appearance Urine Clear (Clear); Bacteria Urine Trace /hpf; Bilirubin Urine Negative (Negative); Blood Urine 1+ (Negative); Color Urine Straw (Yellow); Glucose Urine UA Negative (Negative); Ketones Urine Negative (Negative); Leukocyte Esterase Ur 3+ LEU/UL (Negative); Mucus Urine Rare /lpf; Nitrate Urine Negative (Negative); Protein Urine 1+ mg/dL (Negative); Specific Grav Ur 1.006 (1.001-1.035); Squamous Epithelial Cell Urine Rare /hpf (Few); Urobilinogen Urine Negative mg/dL (<2.0); WBC Urine 31-50 /hpf
[2020-09-27] MEDS: MELATONIN 5 MG TABLET PO (21:34)
[2020-09-28] VITALS (10 sets, daily range): BP systolic 143–172; BP diastolic 57–79; PULSE 60–82; RESP 16–22; TEMP 35.7–36.6; O2SAT 95–98
[2020-09-28] MEDS: ALBUTEROL SULFATE (*SP) INHALER 4 PUFF INHALATION ×4 (02:44→20:44)
[2020-09-28 06:42] LABS: Hematocrit 34.2 % (37.0-47.0); Hemoglobin 11.6 g/dL (12.0-15.0); Mean Corpuscular HGB Conc 33.9 g/dl (32-36); Mean Corpuscular Hemoglobin 30.9 pg (26-34); Mean Platelet Volume 10.8 fl (7.4-10.4); Platelet Count Result 178 k/mm3 (150-375); Red Blood Count 3.76 M/mm3 (4.2-5.4); Red Cell Distribution Width 13.3 % (11.5-14.5); White Blood Count 8.9 K/mm3 (4.5-10.0)
[2020-09-28 06:54] LABS: Anion Gap 10 mmol/L (8-16); Blood Urea Nitrogen 27 mg/dL (7-17); Calcium 9.1 mg/dL (8.4-10.2); Carbon Dioxide 20 mmol/L (22-30); Chloride 103 mmol/L (98-107); Estimated CRCL calculation 25 ml/min; Estimated Glomerular Filt Rate 27; Glucose 129 mg/dL (65-105); Potassium 3.8 mmol/L (3.4-5.0); Sodium 133 mmol/L (137-145)
[2020-09-28] MEDS: FLUTICASONE/SALMETEROL 115-21 MCG (*SP) INHALER 2 PUFF INHALATION ×2 (08:21→20:44)
[2020-09-28] MEDS: CYANOCOBALAMIN 500 MCG TABLET 2500 MCG BY MOUTH (09:06)
[2020-09-28] MEDS: POTASSIUM CHLORIDE 20 MEQ TABLET.ER PO (09:06)
[2020-09-28] MEDS: CHOLECALCIFEROL 1,000 UNITS TABLET 2000 UNITS PO (09:06)
[2020-09-28] MEDS: ENOXAPARIN 40 MG/0.4 ML SYRINGE SUB-Q ×2 (09:07→21:20)
[2020-09-28] MEDS: MAGNESIUM OXIDE 400 MG TABLET PO (09:07)
[2020-09-28] MEDS: ASPIRIN 81 MG ENTERIC TABLET PO (09:07)
[2020-09-28] MEDS: SIMVASTATIN 20 MG TABLET 40 MG PO (09:07)
[2020-09-28] MEDS: PANTOPRAZOLE 40 MG TABLET PO (09:07)
[2020-09-28] MEDS: SOTALOL HCL 80 MG TABLET PO ×2 (09:07→21:20)
[2020-09-28] MEDS: lamoTRIgine 25 MG TABLET PO ×2 (09:08→21:44)
[2020-09-28] MEDS: allopurinoL 100 MG TABLET PO (09:08)
[2020-09-28] MEDS: BUMETANIDE 1 MG TABLET PO (09:08)
[2020-09-28] MEDS: TRIAMCINOLONE ACET 0.1% CREAM 15 GM TUBE 1 APPLIC TOPICAL ×2 (09:08→16:00)
[2020-09-28] MEDS: ISOSORBIDE MONONITRATE 30 MG TAB.ER.24H PO (09:08)
[2020-09-28] MEDS: predniSONE 20 MG TABLET 60 MG PO (09:08)
--- NOTE | 2020-09-28 09:34 | PM.IMPN ---
Progress Note: A&P Assessment and Plan (1) Pneumonia: Qualifiers: Pneumonia type: due to unspecified organism Laterality: bilateral Lung location: unspecified part of lung Qualified Code(s): J18.9 - Pneumonia, unspecified organism Code(s): J18.9 - Pneumonia, unspecified organism Status: Acute Assessment and Plan: TESTED POSITIVE FOR COVID-19 CONTINUE ROCEPHIN AND ZITHROMAX AWAIT CULTURES ADDED REMDESIVIR AND DEXAMETHASONE (2) Suspected COVID-19 virus infection: Code(s): Z20.822 - Contact with and (suspected) exposure to COVID-19 Status: Acute Assessment and Plan: CONFIRMED (3) Acute respiratory failure with hypoxemia: Code(s): J96.01 - Acute respiratory failure with hypoxia Status: Acute Assessment and Plan: CONTINUE SUPPLEMENTAL OXYGEN BY NASAL CANNULA (4) Chronic obstructive pulmonary disease, unspecified: Qualifiers: COPD type: COPD with acute lower respiratory infection Qualified Code(s): J44.0 - Chronic obstructive pulmonary disease with (acute) lower respiratory infection Code(s): J44.9 - Chronic obstructive pulmonary disease, unspecified Status: Acute Assessment and Plan: BREATHING TREATMENTS (5) CKD (chronic kidney disease) stage 4, GFR 15-29 ml/min: Code(s): N18.4 - Chronic kidney disease, stage 4 (severe) Status: Acute Assessment and Plan: BUN AND CREATININE AT PATIENT'S BASELINE (6) DIVINA (obstructive sleep apnea): Onset Date: ~11/2018 Code(s): G47.33 - Obstructive sleep apnea (adult) (pediatric) Status: Acute Assessment and Plan: CPAP AT NIGHTTIME Additional Plan STATES THAT OTHER THAN THE COLD SHE IS FEELS JUST LIKE NORMAL The patient presents with hypoxemia and pneumonia highly suspicious for COVID 19 on imaging. Patient is on isolation and COVID PCR is pending. Patient is on empiric antibiotic therapy with Rocephin and azithromycin to cover her possible community-acquired pneumonia. If COVID testing comes back positive will discontinue Rocephin and azithromycin. Blood cultures are pending. If Covid testing comes back positive will add Remdesivir. The patient has COPD with underlying acute lower respiratory tract infection. She is on prednisone currently for possible COPD exacerbation. Will continue albuterol inhalers 4 puffs q.6 hours and Spiriva inhaled daily. Will avoid nebulizers as patient likely has COVID 19. If COVID testing comes back positive will discontinue prednisone and switched to dexamethasone. will continue home inhaled corticosteroid. Patient's kidney function is at baseline. She does have CHF but appear to be euvolemic will continue home sotalol, potassium , Imdur and Bumex. Home BiPAP settings have been ordered. Patient has been admitted as observation status. Subjective Date/time seen: 09/28/20 09:34 I FEEL GOOD OTHER THAN A HAVE A COLD Review of Systems Review of Systems: All systems reviewed & are unremarkable except as noted in HPI and below Exam Narrative: Exam Narrative: LAYING IN BED Const: General: comfortable, no acute distress, alert and awake Nutritional Appearance: average body habitus Orientation/consciousness: patient oriented x3 HENMT: Head: normal to inspection, normocephalic and atraumatic Ears: hearing grossly normal bilaterally Face and sinus: normal facial exam Eyes: General: appearance normal, both eyes and all related structures Pupils: Equal, round and reactive pupils present EOM: EOMs intact bilaterally Neck: Neck: full ROM, no lymphadenopathy and no JVD Thyroid: thyroid normal Lymphatic: no lymphadenopathy noted Resp: Effort & Inspection: normal respiratory effort and able to speak in complete sentences Auscultation: clear to auscultation bilaterally Cardio: Jugular venous distension: no JVD Rate: regular rate Rhythm: regular rhythm Heart sounds: S1 normal heart sound present a
[2020-09-28 10:35] LABS: Alanine Aminotransferase 15 U/L (4-35); Estimated CRCL calculation 26 ml/min; Estimated Glomerular Filt Rate 29
[2020-09-28 11:06] LABS: INR 0.9; Prothrombin Time 12.4 Seconds (11.1-14.7)
[2020-09-28] MEDS: REMDESIVIR 200 MG/NS 250 ML 200 MG/250 ML BAG 250 MG IVPB (12:04)
[2020-09-28] MEDS: MELATONIN 5 MG TABLET PO (21:21)
[2020-09-29] VITALS (12 sets, daily range): BP systolic 123–148; BP diastolic 49–105; PULSE 65–89; RESP 14–21; TEMP 36.1–37.2; O2SAT 93–99
[2020-09-29] MEDS: ALBUTEROL SULFATE (*SP) INHALER 4 PUFF INHALATION ×4 (02:51→18:51)
[2020-09-29 06:41] LABS: Alanine Aminotransferase 13 U/L (4-35); Estimated CRCL calculation 26 ml/min; Estimated Glomerular Filt Rate 29
[2020-09-29 06:45] LABS: INR 0.9; Prothrombin Time 12.5 Seconds (11.1-14.7)
[2020-09-29] MEDS: FLUTICASONE/SALMETEROL 115-21 MCG (*SP) INHALER 2 PUFF INHALATION ×2 (08:11→18:51)
[2020-09-29] MEDS: REMDESIVIR 100 MG/NS 250 ML 100 MG/250 ML BAG 250 MG IVPB (10:26)
[2020-09-29] MEDS: ENOXAPARIN 40 MG/0.4 ML SYRINGE SUB-Q ×2 (10:27→20:24)
[2020-09-29] MEDS: DEXAMETHASONE SOD PHOS INJ 4 MG/ML VIAL 6 MG IV PUSH (10:27)
[2020-09-29] MEDS: SOTALOL HCL 80 MG TABLET PO ×2 (10:27→20:25)
[2020-09-29] MEDS: lamoTRIgine 25 MG TABLET PO ×2 (10:27→20:25)
[2020-09-29] MEDS: ISOSORBIDE MONONITRATE 30 MG TAB.ER.24H PO (10:28)
[2020-09-29] MEDS: SIMVASTATIN 20 MG TABLET 40 MG PO (10:28)
[2020-09-29] MEDS: CYANOCOBALAMIN 500 MCG TABLET 2500 MCG BY MOUTH (10:28)
[2020-09-29] MEDS: predniSONE 20 MG TABLET 60 MG PO (10:29)
[2020-09-29] MEDS: CHOLECALCIFEROL 1,000 UNITS TABLET 2000 UNITS PO (10:29)
[2020-09-29] MEDS: ASPIRIN 81 MG ENTERIC TABLET PO (10:29)
[2020-09-29] MEDS: POTASSIUM CHLORIDE 20 MEQ TABLET.ER PO (10:29)
[2020-09-29] MEDS: MAGNESIUM OXIDE 400 MG TABLET PO (10:29)
[2020-09-29] MEDS: PANTOPRAZOLE 40 MG TABLET PO (10:30)
[2020-09-29] MEDS: allopurinoL 100 MG TABLET PO (10:30)
[2020-09-29] MEDS: BUMETANIDE 1 MG TABLET PO (10:30)
--- NOTE | 2020-09-29 15:29 | PM.IMPN ---
Progress Note: A&P Assessment and Plan (1) Pneumonia: Qualifiers: Pneumonia type: due to unspecified organism Laterality: bilateral Lung location: unspecified part of lung Qualified Code(s): J18.9 - Pneumonia, unspecified organism Code(s): J18.9 - Pneumonia, unspecified organism Status: Acute Assessment and Plan: POSITIVE FOR COVID-19 S/p ROCEPHIN AND ZITHROMAX BC NGTD Continue REMDESIVIR AND DEXAMETHASONE (2) Suspected COVID-19 virus infection: Code(s): Z20.822 - Contact with and (suspected) exposure to COVID-19 Status: Acute Assessment and Plan: CONFIRMED (3) Acute respiratory failure with hypoxemia: Code(s): J96.01 - Acute respiratory failure with hypoxia Status: Acute Assessment and Plan: Resolved on RA SUPPLEMENTAL OXYGEN prn (4) Chronic obstructive pulmonary disease, unspecified: Qualifiers: COPD type: COPD with acute lower respiratory infection Qualified Code(s): J44.0 - Chronic obstructive pulmonary disease with (acute) lower respiratory infection Code(s): J44.9 - Chronic obstructive pulmonary disease, unspecified Status: Acute Assessment and Plan: BREATHING TREATMENTS (5) CKD (chronic kidney disease) stage 4, GFR 15-29 ml/min: Code(s): N18.4 - Chronic kidney disease, stage 4 (severe) Status: Acute Assessment and Plan: BUN AND CREATININE AT PATIENT'S BASELINE (6) DIVINA (obstructive sleep apnea): Onset Date: ~11/2018 Code(s): G47.33 - Obstructive sleep apnea (adult) (pediatric) Status: Acute Assessment and Plan: CPAP AT NIGHTTIME Subjective Date/time seen: 09/29/20 15:29 pt seen and evaluated; denied any CP or SOB Review of Systems Review of Systems: All systems reviewed & are unremarkable except as noted in HPI and below Exam Const: General: no acute distress, alert and awake Orientation/consciousness: patient oriented x3 HENMT: Head: normocephalic and atraumatic Ears: hearing grossly normal bilaterally and external ears normal Face and sinus: face symmetric Mouth: Yes Normal oral and palatal mucosa present Eyes: Pupils: Equal, round and reactive pupils present EOM: EOMs intact bilaterally Neck: Neck: full ROM, trachea midline and no JVD Chest: Chest palpation & inspection: normal inspection of the chest Resp: Effort & Inspection: normal respiratory effort Cardio: Jugular venous distension: no JVD Rate: regular rate GI: Inspection: normal to inspection Auscultation: normal bowel sounds : General: Yes no CVA tenderness Skin: General skin exam: normal color Rashes: no rashes Neuro: General: patient oriented x3 and CN's II-XI intact bilaterally Cranial nerves: Yes Equal, round and reactive pupils present Speech: normal speech Psych: Appearance: grossly normal Affect: normal affect Judgement: Good judgement present (Psych) Objective Data Vital Signs Vital Signs: Vital Signs - 24 hr 09/28/20 16:00 09/28/20 20:43 09/28/20 23:15 Temperature 36.6 C Pulse Rate 82 73 Respiratory Rate 16 20 Blood Pressure 150/79 H Pulse Oximetry 97 97 96 09/29/20 00:00 09/29/20 03:05 09/29/20 04:00 Temperature 36.3 C L 36.1 C L Pulse Rate 83 77 67 Respiratory Rate 20 21 H 18 Blood Pressure 146/105 H 131/49 L Pulse Oximetry 97 96 99 09/29/20 08:00 09/29/20 08:11 09/29/20 09:00 Temperature 36.8 C Pulse Rate 89 65 Respiratory Rate 14 Blood Pressure 148/67 H Pulse Oximetry 96 95 09/29/20 10:27 09/29/20 12:00 Temperature 36.7 C Pulse Rate 68 84 Respiratory Rate 14 Blood Pressure 133/64 Pulse Oximetry 96 Intake/Output Intake/Output: Intake & Output 09/26/20 09/27/20 09/28/20 09/29/20 23:59 23:59 23:59 23:59 Intake Total 50 2040 1850 830 Output Total 600 575 Balance 50 1440 1275 830 Meds/Results Medications: Active Medications Generic Name Dose Route Start Last Admin Trade Name
[2020-09-29] MEDS: MELATONIN 5 MG TABLET PO (20:25)
[2020-09-30] VITALS (13 sets, daily range): BP systolic 134–152; BP diastolic 69–98; PULSE 67–95; RESP 14–23; TEMP 36.2–36.6; O2SAT 93–100
[2020-09-30] MEDS: ALBUTEROL SULFATE (*SP) INHALER 4 PUFF INHALATION ×4 (01:02→20:57)
[2020-09-30 07:07] LABS: Alanine Aminotransferase 16 U/L (4-35); Estimated CRCL calculation 26 ml/min; Estimated Glomerular Filt Rate 29
[2020-09-30 07:08] LABS: Prothrombin Time 12.7 Seconds (11.1-14.7)
[2020-09-30] MEDS: FLUTICASONE/SALMETEROL 115-21 MCG (*SP) INHALER 2 PUFF INHALATION ×2 (09:59→20:58)
[2020-09-30] MEDS: SIMVASTATIN 20 MG TABLET 40 MG PO (10:42)
[2020-09-30] MEDS: REMDESIVIR 100 MG/NS 250 ML 100 MG/250 ML BAG 250 MG IVPB (10:42)
[2020-09-30] MEDS: CYANOCOBALAMIN 500 MCG TABLET 2500 MCG BY MOUTH (10:44)
[2020-09-30] MEDS: ENOXAPARIN 40 MG/0.4 ML SYRINGE SUB-Q ×2 (10:44→21:27)
[2020-09-30] MEDS: MAGNESIUM OXIDE 400 MG TABLET PO (10:45)
[2020-09-30] MEDS: POTASSIUM CHLORIDE 20 MEQ TABLET.ER PO (10:45)
[2020-09-30] MEDS: SOTALOL HCL 80 MG TABLET PO ×2 (10:45→21:28)
[2020-09-30] MEDS: CHOLECALCIFEROL 1,000 UNITS TABLET 2000 UNITS PO (10:46)
[2020-09-30] MEDS: BUMETANIDE 1 MG TABLET PO (10:47)
[2020-09-30] MEDS: PANTOPRAZOLE 40 MG TABLET PO (10:47)
[2020-09-30] MEDS: ISOSORBIDE MONONITRATE 30 MG TAB.ER.24H PO (10:47)
[2020-09-30] MEDS: allopurinoL 100 MG TABLET PO (10:47)
[2020-09-30] MEDS: ASPIRIN 81 MG ENTERIC TABLET PO (10:47)
[2020-09-30] MEDS: lamoTRIgine 25 MG TABLET PO ×2 (10:48→21:27)
[2020-09-30] MEDS: DEXAMETHASONE SOD PHOS INJ 4 MG/ML VIAL 6 MG IV PUSH (10:49)
[2020-09-30] MEDS: TRIAMCINOLONE ACET 0.1% CREAM 15 GM TUBE 1 APPLIC TOPICAL ×2 (10:50→18:39)
--- NOTE | 2020-09-30 14:22 | PM.IMPN ---
Progress Note: A&P Assessment and Plan (1) Pneumonia due to COVID-19 virus: Code(s): U07.1 - COVID-19; J12.82 - Pneumonia due to coronavirus disease 2018 Status: Acute Assessment and Plan: Clinically improving. COVID postive. CT chest suggestive of COVID pneumonia. On day 3 of Remdesivir and Dexamethasone. No longer hypoxic; tolerating RA. Given comorbid conditions, discussed w/ pt about finishing remdesivir course inpatient, which she is agreeable to. Cont remdesivir day 3/5 Cont dexamethasone day 3 Cont supportive care Supplemental O2 prn Monitor (2) SARS-CoV-2 positive: Code(s): U07.1 - COVID-19 Status: Acute Assessment and Plan: As above. (3) Acute respiratory failure with hypoxemia: Code(s): J96.01 - Acute respiratory failure with hypoxia Status: Resolved Assessment and Plan: Resolved. Likely due to above Plan as above Monitor Supplemental O2 prn (4) Chronic obstructive pulmonary disease, unspecified: Qualifiers: COPD type: COPD with acute lower respiratory infection Qualified Code(s): J44.0 - Chronic obstructive pulmonary disease with (acute) lower respiratory infection Code(s): J44.9 - Chronic obstructive pulmonary disease, unspecified Status: Acute Assessment and Plan: Stable. Cont home medications Monitor (5) CKD (chronic kidney disease) stage 4, GFR 15-29 ml/min: Code(s): N18.4 - Chronic kidney disease, stage 4 (severe) Status: Acute Assessment and Plan: Cr stable and at baseline Monitor (6) DIVINA (obstructive sleep apnea): Onset Date: ~11/2018 Code(s): G47.33 - Obstructive sleep apnea (adult) (pediatric) Status: Acute Assessment and Plan: Cont CPAP Subjective Date/time seen: 09/30/20 14:22 Interval history: Patient is a 80 yo F with history of ACD, COPD, CKD, CML, diastolic CHF, DIVINA, paroxysmal a. fib, among other comorbid conditions who is seen in follow up for COVID PNA and acute respiratory failure w/ hypoxemia likely due to same. Pt states she feels pretty good today. She notes she is less SOB, cough somewhat improved, but still significant. She notes she does not typically ambulate long distances, so she does not know if she is having less EDUARDO. No other complaints at the moment. Denies current subjective f/c/s, myalgias/arthralgias, cp/palpitations, n/v/d/c, abd pain, dysuria, hematuria, cloudy urine, calf pain/swelling. Review of Systems Review of Systems: All systems reviewed & are unremarkable except as noted in HPI and below Exam Const: General: comfortable, well developed, alert, awake and ill appearing acutely (mildly) Nutritional Appearance: well nourished Orientation/consciousness: oriented to person HENMT: Head: normocephalic and atraumatic Ears: hearing grossly normal bilaterally and external ears normal General nose exam: Normal external nose present Face and sinus: face symmetric Mouth: Yes Normal oral and palatal mucosa present Eyes: General: appearance normal, both eyes and all related structures EOM: EOMs intact bilaterally Neck: Neck: normal visual inspection, trachea midline and supple Resp: Effort & Inspection: normal respiratory effort and symmetric chest movement Auscultation: no wheezes, diminished lung sounds diffuse and other (mild course BS particularly in upper lung rosas b/l) Cardio: Rate: regular rate Rhythm: regular rhythm Heart sounds: S1 normal heart sound present, S2 normal heart sound present and no murmurs GI: Inspection: normal to inspection GI Palp: No abdominal tenderness and Yes Soft to palpation Auscultation: normal bowel sounds Skin: General skin exam: normal color Lesions: no les
[2020-09-30] MEDS: guaiFENesin 12 HR 600 MG TABCR 1200 MG PO ×2 (15:30→21:27)
[2020-09-30] MEDS: MELATONIN 5 MG TABLET PO (21:27)
[2020-10-01] VITALS (16 sets, daily range): BP systolic 128–184; BP diastolic 73–106; PULSE 64–80; RESP 12–20; TEMP 35.7–36.6; O2SAT 94–100
[2020-10-01] MEDS: ALBUTEROL SULFATE (*SP) INHALER 4 PUFF INHALATION ×3 (02:46→21:23)
[2020-10-01] MEDS: SOTALOL HCL 80 MG TABLET PO ×3 (06:43→21:16)
[2020-10-01 07:22] LABS: Alanine Aminotransferase 17 U/L (4-35); Albumin Level 3.3 g/dL (3.5-5.1); Alkaline Phosphatase 76 U/L (38-126); Anion Gap 9 mmol/L (8-16); Aspartate Amino Transferase 22 U/L (14-36); Bilirubin,Total 0.4 mg/dL (0.2-1.3); Blood Urea Nitrogen 46 mg/dL (7-17); Calcium 9.2 mg/dL (8.4-10.2); Carbon Dioxide 23 mmol/L (22-30); Chloride 102 mmol/L (98-107); Estimated CRCL calculation 28 ml/min; Estimated Glomerular Filt Rate 31; Glucose 115 mg/dL (65-110); Magnesium 1.4 mg/dL (1.6-2.3); Potassium 4.1 mmol/L (3.4-5.0); Sodium 134 mmol/L (137-145)
[2020-10-01] MEDS: FLUTICASONE/SALMETEROL 115-21 MCG (*SP) INHALER 2 PUFF INHALATION ×2 (07:54→21:23)
[2020-10-01 07:59] LABS: Prothrombin Time 12.7 Seconds (11.1-14.7)
[2020-10-01 08:36] LABS: Basophils Percent Auto 0.2 % (0.2-1.2); Hematocrit 34.4 % (37.0-47.0); Hemoglobin 11.3 g/dL (12.0-15.0); Immature Granulocyte Absolute 0.05 K/mm3 (0.00-0.031); Lymphocytes Absolute Auto 0.87 K/mm3 (0.9-3.2); Lymphocytes Percent Auto 17.2 % (18.3-44.2); Mean Corpuscular HGB Conc 32.8 g/dl (32-36); Mean Corpuscular Hemoglobin 31.1 pg (26-34); Mean Corpuscular Volume 94.8 fl (80-100); Mean Platelet Volume 12.2 fl (7.4-10.4); Monocytes Absolute Auto 0.3 K/mm3 (0.1-0.6); Monocytes Percent Auto 5.1 % (2.6-8.5); Neutrophils Absolute Auto 3.9 K/mm3 (1.3-6.7); Neutrophils Percent Auto 76.5 % (45.5-73.1); Platelet Count Result 117 k/mm3 (150-375); Red Blood Count 3.63 M/mm3 (4.2-5.4); Red Cell Distribution Width 13.8 % (11.5-14.5); White Blood Count 5.1 K/mm3 (4.5-10.0)
[2020-10-01] MEDS: SIMVASTATIN 20 MG TABLET 40 MG PO (10:18)
[2020-10-01] MEDS: guaiFENesin 12 HR 600 MG TABCR 1200 MG PO ×2 (10:18→21:16)
[2020-10-01] MEDS: CYANOCOBALAMIN 500 MCG TABLET 2500 MCG BY MOUTH (10:18)
[2020-10-01] MEDS: MAGNESIUM OXIDE 400 MG TABLET PO (10:19)
[2020-10-01] MEDS: ENOXAPARIN 40 MG/0.4 ML SYRINGE SUB-Q ×2 (10:19→21:18)
[2020-10-01] MEDS: lamoTRIgine 25 MG TABLET PO ×2 (10:19→21:17)
[2020-10-01] MEDS: DEXAMETHASONE SOD PHOS INJ 4 MG/ML VIAL 6 MG IV PUSH (10:19)
[2020-10-01] MEDS: ASPIRIN 81 MG ENTERIC TABLET PO (10:19)
[2020-10-01] MEDS: allopurinoL 100 MG TABLET PO (10:19)
[2020-10-01] MEDS: POTASSIUM CHLORIDE 20 MEQ TABLET.ER PO (10:20)
[2020-10-01] MEDS: PANTOPRAZOLE 40 MG TABLET PO (10:20)
[2020-10-01] MEDS: BUMETANIDE 1 MG TABLET PO (10:20)
[2020-10-01] MEDS: CHOLECALCIFEROL 1,000 UNITS TABLET 2000 UNITS PO (10:20)
[2020-10-01] MEDS: ISOSORBIDE MONONITRATE 30 MG TAB.ER.24H PO (10:20)
[2020-10-01] MEDS: REMDESIVIR 100 MG/NS 250 ML 100 MG/250 ML BAG 250 MG IVPB (10:21)
[2020-10-01] MEDS: TRIAMCINOLONE ACET 0.1% CREAM 15 GM TUBE 1 APPLIC TOPICAL ×2 (10:22→17:00)
--- NOTE | 2020-10-01 14:23 | PM.IMPN ---
Progress Note: A&P Assessment and Plan (1) Pneumonia due to COVID-19 virus: Code(s): U07.1 - COVID-19; J12.82 - Pneumonia due to coronavirus disease 2018 Status: Acute Assessment and Plan: Clinically improving. COVID postive. CT chest suggestive of COVID pneumonia. On day 3 of Remdesivir and Dexamethasone. No longer hypoxic; tolerating RA. Given comorbid conditions, discussed w/ pt about finishing remdesivir course inpatient, which she is agreeable to. Cont remdesivir day 4/5 Cont dexamethasone day 4 Cont supportive care Supplemental O2 prn Monitor (2) SARS-CoV-2 positive: Code(s): U07.1 - COVID-19 Status: Acute Assessment and Plan: As above. (3) Acute respiratory failure with hypoxemia: Code(s): J96.01 - Acute respiratory failure with hypoxia Status: Resolved Assessment and Plan: Resolved. Likely due to above Plan as above Monitor Supplemental O2 prn (4) Chronic obstructive pulmonary disease, unspecified: Qualifiers: COPD type: COPD with acute lower respiratory infection Qualified Code(s): J44.0 - Chronic obstructive pulmonary disease with (acute) lower respiratory infection Code(s): J44.9 - Chronic obstructive pulmonary disease, unspecified Status: Acute Assessment and Plan: Stable. Cont home medications Monitor (5) CKD (chronic kidney disease) stage 4, GFR 15-29 ml/min: Code(s): N18.4 - Chronic kidney disease, stage 4 (severe) Status: Acute Assessment and Plan: Cr stable and at baseline Monitor (6) DIVINA (obstructive sleep apnea): Onset Date: ~11/2018 Code(s): G47.33 - Obstructive sleep apnea (adult) (pediatric) Status: Acute Assessment and Plan: Cont CPAP Subjective Date/time seen: 10/01/20 14:23 Interval history: Patient is a 80 yo F with history of ACD, COPD, CKD, CML, diastolic CHF, DIVINA, paroxysmal a. fib, among other comorbid conditions who is seen in follow up for COVID PNA and acute respiratory failure w/ hypoxemia likely due to same. Feels well today. Denies any shortness of breath cough has improved has not required any oxygen does not typically ambulate long distances and uses wheelchair most of the time for past few years now Finishing [employer] tomorrow. Review of Systems Review of Systems: Narrative: - CONSTITUTIONAL: Denies weight loss, fever and chills. - HEENT: Denies changes in vision and hearing - RESPIRATORY: Denies SOB and cough. - CV: Denies palpitations and CP. - GI: Denies abdominal pain, nausea, vomiting and diarrhea. - : Denies dysuria and urinary frequency. - MSK: Denies myalgia and joint pain. - SKIN: Denies rash and pruritus. - NEUROLOGICAL: Denies headache and syncope. - PSYCHIATRIC: Denies recent changes in mood. Denies anxiety and depression. All systems reviewed & are unremarkable except as noted in HPI and below Neurologic: Reports weakness Endocrine: Endocrine: Reports fatigue Exam Narrative: Exam Narrative: GENERAL: The patient is well developed, not in acute distress HEENT: Nonicteric sclerae, PERRLA, EOMI. Oropharynx clear. Moist mucous membranes. Conjunctivae appear well perfused. CHEST: Chest wall is nontender. HEART: Regular rate and rhythm without murmur, rubs, or gallops LUNGS: Clear to auscultation bilaterally. no respiratory distress ABDOMEN: Soft, positive bowel sounds, non-tender, no organomegaly. SKIN: No rash, no excessive bruising, petechiae, or purpura. NEUROLOGIC: Cranial nerves II-XII intact, alert and oriented x 3, no gross motor deficits except for chronic lower extremity weakness for which he is wheelchair-bound EXTREMITIES: no edema, cyanosis or clubbing Objective
[2020-10-01] MEDS: MAGNESIUM SULF 1 GM/D5W 100 ML 1 GM/100 ML BAG IVPB (18:08)
[2020-10-01] MEDS: MELATONIN 5 MG TABLET PO (21:16)
[2020-10-02] VITALS: BP 143/73; PULSE 71; RESP 20; TEMP 36.4; O2SAT 100
[2020-10-02] MEDS: ALBUTEROL SULFATE (*SP) INHALER 4 PUFF INHALATION ×3 (03:23→14:57)
[2020-10-02 03:24] VITALS: PULSE 71; RESP 16; O2SAT 97
[2020-10-02 04:00] VITALS: BP 161/91; PULSE 73; RESP 20; TEMP 36.4; O2SAT 99
[2020-10-02 07:01] LABS: Alanine Aminotransferase 18 U/L (4-35); Estimated CRCL calculation 26 ml/min; Estimated Glomerular Filt Rate 29
[2020-10-02 08:00] VITALS: BP 154/80; PULSE 69; RESP 18; TEMP 36.9; O2SAT 93
[2020-10-02] MEDS: CYANOCOBALAMIN 500 MCG TABLET 2500 MCG BY MOUTH (09:05)
[2020-10-02] MEDS: MAGNESIUM OXIDE 400 MG TABLET PO (09:05)
[2020-10-02] MEDS: SOTALOL HCL 80 MG TABLET PO (09:05)
[2020-10-02] MEDS: POTASSIUM CHLORIDE 20 MEQ TABLET.ER PO (09:06)
[2020-10-02] MEDS: ISOSORBIDE MONONITRATE 30 MG TAB.ER.24H PO (09:06)
[2020-10-02] MEDS: SIMVASTATIN 20 MG TABLET 40 MG PO (09:06)
[2020-10-02] MEDS: ASPIRIN 81 MG ENTERIC TABLET PO (09:06)
[2020-10-02] MEDS: guaiFENesin 12 HR 600 MG TABCR 1200 MG PO (09:06)
[2020-10-02] MEDS: BUMETANIDE 1 MG TABLET PO (09:06)
[2020-10-02] MEDS: CHOLECALCIFEROL 1,000 UNITS TABLET 2000 UNITS PO (09:06)
[2020-10-02] MEDS: allopurinoL 100 MG TABLET PO (09:06)
[2020-10-02] MEDS: PANTOPRAZOLE 40 MG TABLET PO (09:06)
[2020-10-02] MEDS: lamoTRIgine 25 MG TABLET PO (09:06)
[2020-10-02] MEDS: ENOXAPARIN 40 MG/0.4 ML SYRINGE SUB-Q (09:07)
[2020-10-02] MEDS: TRIAMCINOLONE ACET 0.1% CREAM 15 GM TUBE 1 APPLIC TOPICAL (09:07)
[2020-10-02] MEDS: DEXAMETHASONE SOD PHOS INJ 4 MG/ML VIAL 6 MG IV PUSH (09:07)
[2020-10-02] MEDS: FLUTICASONE/SALMETEROL 115-21 MCG (*SP) INHALER 2 PUFF INHALATION (09:19)
[2020-10-02] MEDS: REMDESIVIR 100 MG/NS 250 ML 100 MG/250 ML BAG 250 MG IVPB (11:58)
[2020-10-02 12:00] VITALS: BP 140/70; PULSE 80; RESP 18; TEMP 36.7; O2SAT 97
--- NOTE | 2020-10-02 12:59 | PM.DS ---
DS: Admitting Diagnosis Admitting Diagnosis Admitting Diagnosis: shortness of breath DS: Discharge Diagnosis Discharge Diagnosis (1) Pneumonia due to COVID-19 virus: Code(s): U07.1 - COVID-19; J12.82 - Pneumonia due to coronavirus disease 2018 Status: Acute (2) Bilateral pneumonia: Code(s): J18.9 - Pneumonia, unspecified organism Status: Acute (3) DIVINA (obstructive sleep apnea): Onset Date: ~11/2018 Code(s): G47.33 - Obstructive sleep apnea (adult) (pediatric) Status: Acute (4) Chronic obstructive pulmonary disease, unspecified: Qualifiers: COPD type: COPD with acute lower respiratory infection Qualified Code(s): J44.0 - Chronic obstructive pulmonary disease with (acute) lower respiratory infection Code(s): J44.9 - Chronic obstructive pulmonary disease, unspecified Status: Acute (5) Benign essential hypertension: Code(s): I10 - Essential (primary) hypertension Status: Acute (6) Ulnar neuropathy of right upper extremity: Code(s): G56.21 - Lesion of ulnar nerve, right upper limb Status: Acute (7) Left carpal tunnel syndrome: Code(s): G56.02 - Carpal tunnel syndrome, left upper limb Status: Acute (8) Primary osteoarthritis involving multiple joints: Code(s): M15.0 - Primary generalized (osteo)arthritis Status: Acute (9) Anemia associated with chronic renal failure: Code(s): N18.9 - Chronic kidney disease, unspecified; D63.1 - Anemia in chronic kidney disease Status: Acute (10) CKD (chronic kidney disease) stage 4, GFR 15-29 ml/min: Code(s): N18.4 - Chronic kidney disease, stage 4 (severe) Status: Acute DS: Summary Hospital Course Hospital Course: 80-year-old female with a past medical history COPD, chronic kidney disease, CML (in remission), obstructive sleep apnea and essential hypertension who presented to the ER for fever and cough. The patient reported that she had had 2 weeks of nonproductive cough. She has been using her nebulizer at home with some improvement in her symptoms. However over the last 3 days she has now developed fever with a T-max of 102? at home. She denies any recent ill contacts. Her son who is a regional owner operator truck driver recently visited her from [place]. He left her also few days before she became ill. She has not had COVID vaccine. She denies any loss of sense of taste or smell. She reports that she really has not felt bad besides having cough. She denies any chest pain or significant shortness of breath from baseline. She has noticed so wheezing more over the last week or so. She has been using her nebulizers at home and they have been helping. She denies any headache, myalgias or dysuria. She did think her urine may be slightly bloody. She has not noticed any orthopnea, lower extremity edema, calf pain. She notices she really started wheezing significantly after she received treatments in the ER. She reports a good appetite. She denies any nausea or vomiting but has been having up to 4 loose stools a day for the last 3 days. She reports that is not unusual for to have intermittent diarrhea and did not think much of having loose stools. Stools have been brown and watery. She denies any associated abdominal pain. She has not had any recent antibiotic exposures or travel. She has been maintaining social distancing. the patient was not hypoxic at rest but with ambulation her oxygen saturations dropped to 85%. she was admitted to the hospital with COVID suspect. She was placed on isolation and COVID PCR was done which came back positive she was empirically started on antibiotic therapy with Rocephin and azithromycin which was discontinued once COVID test came back positive. She was started on Decadron along with REMdesivir, and she recovered well and did not require any oxygen supplementation. She finished her 5 day course of remdesivir and is planned to continu
== END 2020-10-02 16:25 | disposition home or self-care (01) | DRG 177 ==
LOC: ANHED 19:38 → ANH3MEDSUR 22:14
PROVIDERS: Emergency Medicine; Internal Medicine; Admitting Provider Internal Medicine; Emergency Provider General Practice; PCP Internal Medicine; Visit Provider Physician Assistant
DX: U07.1 COVID-19 (principal); J12.82 Pneumonia due to coronavirus disease 2019; I13.0 Hypertensive heart and chronic kidney disease with heart failure and stage 1 through stage 4 chronic kidney disease, or unspecified chronic kidney disease; N18.4 Chronic kidney disease, stage 4 (severe); I50.32 Chronic diastolic (congestive) heart failure; C92.11 Chronic myeloid leukemia, BCR/ABL-positive, in remission; J44.0 Chronic obstructive pulmonary disease with (acute) lower respiratory infection; J44.1 Chronic obstructive pulmonary disease with (acute) exacerbation; G47.33 Obstructive sleep apnea (adult) (pediatric); N18.9 Chronic kidney disease, unspecified; D63.1 Anemia in chronic kidney disease; M15.0 Primary generalized (osteo)arthritis; G56.21 Lesion of ulnar nerve, right upper limb; G56.02 Carpal tunnel syndrome, left upper limb; J45.909 Unspecified asthma, uncomplicated; F41.8 Other specified anxiety disorders; E78.5 Hyperlipidemia, unspecified; G62.9 Polyneuropathy, unspecified; E55.9 Vitamin D deficiency, unspecified; K42.9 Umbilical hernia without obstruction or gangrene; I48.0 Paroxysmal atrial fibrillation; M81.0 Age-related osteoporosis without current pathological fracture; Z96.653 Presence of artificial knee joint, bilateral; E66.9 Obesity, unspecified; Z68.38 Body mass index [BMI] 38.0-38.9, adult; Z95.0 Presence of cardiac pacemaker; Z90.49 Acquired absence of other specified parts of digestive tract; Z90.710 Acquired absence of both cervix and uterus; Z90.722 Acquired absence of ovaries, bilateral; Z98.42 Cataract extraction status, left eye; Z98.41 Cataract extraction status, right eye; Z87.891 Personal history of nicotine dependence; Z85.820 Personal history of malignant melanoma of skin
CPT/HCPCS: 36415; 36600; 71046; 71250; 80048; 80053; 81001; 82375; 82565; 82805; 83050; 83690; 83735; 84460; 84484; 85025; 85027; 85610; 85730; 87040; 87086; 87088; 93005; 94002; 94003; 94640; 96365; 96366; 96372; 96375; 99285; A9270; C9803; G0378; J0456; J0696; J1100; J1650; J3475; J7120; J7512; U0003; U0005

== ENCOUNTER 2020-10-10 09:28 | Inpatient (IN) | payer MEDICARE, MEDICAID, SELFPAY ==
[2020-10-10] VITALS (14 sets, daily range): BP systolic 104–136; BP diastolic 57–97; PULSE 77–106; RESP 12–24; TEMP 35.4–36.8; O2SAT 93–100; BMI 37.1
--- NOTE | ~2020-10-10 | XR_ITS ---
XR abdomen/kub 1V 10/11/2020 08:16 INDICATION: Right renal stone TECHNIQUE: KUB COMPARISON: 11/27/2018 FINDINGS: Bowel gas pattern is normal. There is no evidence of free air, mass, organomegaly, ascites or obstruction. No abnormal calculi are seen. The bones appear intact. Moderate lumbar spondylosis with levoscoliosis. Pacemaker leads are noted. There is mild osteoarthritis of the hips. IMPRESSION: 1: No acute abdominal abnormality identified. Reviewed, dictated and finalized at location A.
--- NOTE | ~2020-10-10 | XR_ITS ---
EXAMINATION: XR retrograde pyelo w/stent RT EXAM DATE: 10/12/2020 15:35 INDICATION: Right-sided proximal ureteral stone. Obstructive nephropathy. TECHNIQUE: Fluoroscopy used during XR retrograde pyelo w/stent RT performed by Dr. Brandon Chang MD, urologist. The radiologist Jin Torres M.D. dictating this report of the image(s) available wa s not present for the procedure. Total fluoroscopic time of 16 seconds. The DAP for this procedure was 394 radcm2. A total of 44 images sent to PACS from the exam. Cine run(s) available for review. FINDINGS: Right ureter was cannulated, injected. Mild right hydroureter an moderate hydronephrosis. A double-J ureteral stent was placed. Correlate with procedure note. IMPRESSION: Moderate hydronephrosis. Stent in position. Reviewed, dictated and finalized at location B.
--- NOTE | ~2020-10-10 | CT_ITS ---
EXAMINATION: CT chest high resolution [facility] EXAM DATE: 10/13/2020 10:02 INDICATION: Cavitary pneumonia TECHNIQUE: Spiral CT of the chest without contrast. HRCT. Axial, coronal and sagittal images of the c hest were reviewed. Coronal maximum intensity pixel images of chest reviewed. The dose-length produ ct (DLP) for this examination was 429.39 mGy-cm. The exposure was tailored according to patient size (auto mA exposure control), and iterative reconstruction (ASIR) was used as additional dose reductio n technique. Comparison is made to prior examination from 09/26/2020. FINDINGS: Previously seen regions of groundglass opacity have increased in density, decreased in siz e and volume, appearances consistent with subacute stage COVID pneumonia, although other viral or inf ectious etiologies are also possible. No intralobular septal thickening on the HRCT. Mild emphysema. There are no pleural or pericardial ef fusions. Tracheobronchial tree is patent. There is no mediastinal, hilar or axillary lymphadenopa thy. There is no pneumothorax. Borderline cardiac enlargement. There is pacemaker/AICD device. T here is moderate coronary arterial calcification, arterial sclerosis. Upper abdomen is unremarkable. There is thoracic spondylosis without osteoblastic or osteolytic lesions identified. IMPRESSION: 1. Change in previously seen lung opacities, appearance consistent with subacute COVID pneumonia [place] other infectious etiologies also possible. 2. Mild emphysema. Reviewed, dictated and finalized at location B. IMPRESSION: 1. Change in previously seen lung opacities, appearance consistent with subacu te COVID pneumonia although other infectious etiologies also possible. 2. Mild emphysema.
--- NOTE | ~2020-10-10 | XR_ITS ---
XR chest 1V 10/10/2020 10:30 Indication: Flank pain. Recent pneumonia. Procedure: AP view of the chest Comparison: Comparison to multiple prior studies sequentially, with oldest reviewed study dated 03/2018. Findings: Borderline heart size. Pacemaker leads in expected position. Patchy bilateral infiltrates o f the mid and lower lung zones. No significant pleural effusion or pneumothorax. No acute osseous abn ormality. Impression: 1: Patchy bilateral infiltrates of the lower lung, compatible with pneumonia. Reviewed, dictated and finalized at location A. Impression: 1: Patchy bilateral infiltrates of the lower lung, compatible with pneumonia.
--- NOTE | ~2020-10-10 | CT_ITS ---
EXAMINATION: CT abdomen pelvis wo con DATE: 10/10/2020 10:24 INDICATION: Bilateral flank pain TECHNIQUE: Computed tomography (CT) of the abdomen and pelvis was performed without intravenous contr ast. The dose-length product was 1246.53 mGy-cm. Automated exposure control and iterative reconstruct ion technique were employed. COMPARISON: CT dated 01/04/2019. FINDINGS: There is multifocal bilateral airspace consolidation with possible developing areas of cavi tation. Heart size normal. There is atherosclerosis. No significant pleural or pericardial effusion. There is a 6 mm stone in the right renal pelvis. There is a punctate 2 mm proximal right ureteral sto ne. There are multiple nonobstructing right renal stones is a 4.4 cm right renal cyst. There is right renal atrophy. The liver, spleen, pancreas, adrenal glands and left kidney are unremarkable. There is a fat-containi ng umbilical hernia. Nonobstructive bowel gas pattern. Uterus is surgically absent. No abnormal pelvi c masses or fluid collections. No abdominal or pelvic lymphadenopathy. No acute osseous abnormality. Moderate-severe lumbar spondylosis. There is a urachal remnant. IMPRESSION: 1. Multifocal bibasilar airspace consolidation with possible areas of cavitation, consistent with pne umonia. 2: Right proximal ureteral and renal stones with mild hydronephrosis. Reviewed, dictated and finalized at location A. IMPRESSION: 1. Multifocal bibasilar airspace consolidation with possible areas of cavitatio n, consistent with pneumonia. 2: Right proximal ureteral and renal stones with mild hydronephrosis.
--- NOTE | 2020-10-10 10:12 | ED.BACK ---
HPI - Back Pain/Injury General Chief Complaint: Back Pain/Injury Stated Complaint: BILATERAL FLANK PAIN Time Seen by Provider: 10/10/20 09:58 Source: patient History of Present Illness HPI Narrative: Patient 80 years old white female arrived to the hospital by private car complaining of kidney pain bilaterally started yesterday. Worse with movement, better laying down. Patient denies any fever, chills, nausea, vomiting, abdominal pain, chest pain, shortness of breath. Patient was discharged from our hospital 8 days ago status post Covid infection and Covid pneumonia. Related Data Home Medications Medication Instructions Recorded Confirmed aspirin 81 mg tablet,delayed 81 mg PO DAILY 02/17/19 09/27/20 release diphenhydramine HCl 25 mg tablet 25 mg PO TID 02/17/19 09/27/20 isosorbide mononitrate 30 mg 30 mg PO DAILY 05/15/20 09/27/20 tablet,extended release 24 hr albuterol sulfate [ProAir HFA] 2 puff INHALATION Q6H PRN 09/27/20 09/27/20 allopurinol 100 mg PO DAILY 09/27/20 09/27/20 bumetanide 1 mg PO DAILY 09/27/20 09/27/20 cholecalciferol (vitamin D3) 50 mcg PO DAILY 09/27/20 09/27/20 cyanocobalamin (vitamin B-12) 2,500 mcg SUBLINGUAL DAILY 09/27/20 09/27/20 esomeprazole magnesium 40 mg PO DAILY 09/27/20 09/27/20 fluticasone propion-salmeterol 1 inh INHALATION BID 09/27/20 09/27/20 [Wixela Inhub] lamotrigine 25 mg PO DAILY 09/27/20 09/27/20 magnesium oxide 400 mg PO DAILY 09/27/20 09/27/20 melatonin 5 mg PO HS 09/27/20 09/27/20 potassium chloride 20 meq PO DAILY 09/27/20 09/27/20 simvastatin 40 mg PO DAILY 09/27/20 09/27/20 sotalol 80 mg PO BID 09/27/20 09/27/20 triamcinolone acetonide 1 applic TOPICAL BID 09/27/20 09/27/20 Allergies Allergy/AdvReac Type Severity Reaction Status Date / Time azithromycin Allergy Intermediate Other Verified 09/27/20 23:45 lisinopril Allergy Intermediate Unknown Verified 09/27/20 00:31 nitroglycerin Allergy Mild SKIN RASH Verified 09/27/20 00:31 UNDER NITRO PATCH NORMA Inhibitors Allergy Unknown Unknown Verified 09/27/20 00:31 phenazopyridine Allergy Unknown Unknown Verified 09/27/20 00:31 Review of Systems Review of Systems: Narrative: CONSTITUTIONAL: Denies fever, chills, or sweats. EYES: Denies visual changes, redness, or discharge. ENT: Denies rhinorrhea, congestion, sore throat, or otalgia. CARDIOVASCULAR: Denies chest pain, palpitations, or edema. RESPIRATORY: Denies cough or dyspnea. GASTROINTESTINAL: Denies abdominal pain, nausea, vomiting, or diarrhea. GENITOURINARY: Denies dysuria or hematuria. SKIN: Denies rash or itching. MUSCULOSKELETAL: Denies back pain, joint pain, or myalgia. NEUROLOGIC: Denies headache, numbness, or weakness. PSYCHIATRIC: Denies anxiety or depression. [facility] Past Medical History Medical History Anemia of chronic disease Benign essential hypertension Chronic obstructive pulmonary disease, unspecified CKD (chronic kidney disease) stage 4, GFR 15-29 ml/min CML (chronic myelocytic leukemia) in remission since 2017 Depression with anxiety Diastolic CHF echo August 2017 GERD (gastroesophageal reflux disease) Gout Hyperlipidemia DIVINA (obstructive sleep apnea) (~11/2018) BiPAP 12/20 Osteoporosis Paroxysmal A-fib Peripheral neuropathy Sick sinus syndrome Umbilical hernia without obstruction and without gangrene Vitamin D deficiency Surgical History Surgical History Cardiac pacemaker in situ (~08/2017) History of appendectomy History of bladder surgery History of colonoscopy with polypectomy History of melanoma excision right nares History of total hysterectomy with bilateral salpingo-oophorectomy (BSO) History of total left knee replacement (TKR) History of total right knee replacement (~10/2008) Status post cataract extraction of both eyes with insertion of intraocular lens Status post cholecystectomy Family History Family His
[2020-10-10] MEDS: ONDANSETRON INJ 4 MG/2 ML VIAL IV PUSH (10:37)
[2020-10-10] MEDS: MORPHINE SULFATE (*CRX) 2 MG/ML INJ IV PUSH (10:37)
[2020-10-10 10:42] LABS: Basophils Percent Auto 0.2 % (0.2-1.2); Eosinophils Absolute Auto 0.1 K/mm3 (0-0.3); Eosinophils Percent Auto 0.4 % (0-4.4); Hematocrit 35.6 % (37.0-47.0); Hemoglobin 11.7 g/dL (12.0-15.0); Immature Granulocyte Absolute 0.26 K/mm3 (0.00-0.031); Immature Granulocyte Percent A 1.8 % (0-0.5); Lymphocytes Absolute Auto 1.51 K/mm3 (0.9-3.2); Lymphocytes Percent Auto 10.5 % (18.3-44.2); Mean Corpuscular HGB Conc 32.9 g/dl (32-36); Mean Corpuscular Hemoglobin 30.9 pg (26-34); Mean Corpuscular Volume 93.9 fl (80-100); Mean Platelet Volume 10.9 fl (7.4-10.4); Monocytes Absolute Auto 1.7 K/mm3 (0.1-0.6); Monocytes Percent Auto 11.7 % (2.6-8.5); Neutrophils Absolute Auto 10.9 K/mm3 (1.3-6.7); Neutrophils Percent Auto 75.4 % (45.5-73.1); Platelet Count Result 206 k/mm3 (150-375); Red Blood Count 3.79 M/mm3 (4.2-5.4); Red Cell Distribution Width 14.6 % (11.5-14.5); White Blood Count 14.4 K/mm3 (4.5-10.0)
[2020-10-10 10:50] LABS: Add Urine Microscopic? YES; Appearance Urine Cloudy (Clear); Bacteria Urine Trace /hpf; Bilirubin Urine Negative (Negative); Blood Urine 1+ (Negative); Color Urine Straw (Yellow); Glucose Urine UA Negative (Negative); Ketones Urine Negative (Negative); Leukocyte Esterase Ur 3+ LEU/UL (Negative); Nitrate Urine Negative (Negative); Protein Urine 1+ mg/dL (Negative); Specific Grav Ur 1.009 (1.001-1.035); Squamous Epithelial Cell Urine Occasional /hpf (Few); Urobilinogen Urine Negative mg/dL (<2.0); WBC Urine 51-75 /hpf
[2020-10-10 10:57] LABS: Alanine Aminotransferase 22 U/L (4-35); Albumin Level 3.3 g/dL (3.5-5.1); Alkaline Phosphatase 81 U/L (38-126); Anion Gap 8 mmol/L (8-16); Aspartate Amino Transferase 22 U/L (14-36); Bilirubin,Total 0.8 mg/dL (0.2-1.3); Blood Urea Nitrogen 44 mg/dL (7-17); Calcium 8.6 mg/dL (8.4-10.2); Carbon Dioxide 22 mmol/L (22-30); Chloride 106 mmol/L (98-107); Estimated CRCL calculation 26 ml/min; Estimated Glomerular Filt Rate 29; Glucose 103 mg/dL (65-110); Potassium 4.3 mmol/L (3.4-5.0); Sodium 136 mmol/L (137-145)
[2020-10-10 11:29] LABS: Alveolar/Arterial O2 Gradient 34.6 mmHg; Base Excess ABG -2.5 mEq/l (+/-2.0); Device ROOM AIR; Fractional Inspired Oxygen 21 %; Modified Allen's Test Pass; Oxygen Content ABG 16.1 %vol (16.0-22.0); Oxygen Saturation ABG 94.3 % (95.0-100.0); Oxyhemoglobin 93.4 % THb (90.0-100.0); PCO2 ABG 36.8 mmHg (35.0-45.0); PO2 ABG 71.1 mmHg (80.0-100.0); PO2 FiO2 Ratio Arterial Blood 3.39 %; Site Drawn RIGHT RADIAL; Total Hemoglobin 12.2 g/dL (12.0-18.0); pH ABG 7.394 (7.350-7.450)
--- NOTE | 2020-10-10 13:26 | PC.NURSE ---
Patient's lunch tray ordered at this time.
--- NOTE | 2020-10-10 14:50 | PM.IMHP ---
H&P: HPI History of Present Illness Date/Time: 10/10/20 14:50 Chief Complaint: Bilateral flank pain Narrative: 80yo female with asthma, dCHF, CKD and recent hospitalization for COVID PNA who returns to the ED for complaints of back pain. She was hospitalized here on 09/26 for diarrhea, fever and cough. She was hypoxic and was found positive for COVID. She was not vaccinated. She completed Remdesivir x 5 days. She was also on Decadron x5 days and discharged home for an additional 5 days. She was on Rocephin and Azithro for 2 days but stopped when the COVID test returned positive. BCx and UCx were negative. She did not receive Tocilizumab or plasma. She was discharged home on 10/02/20. Patient did well at home. She completed the steroid course. She has been feeling fatigued. Patient developed bilateral flank pain right greater than left yesterday. There were no falls or trauma. She has been having dysuria but no hematuria. The urine is darker in color. She drinks plenty of free water. No urinary urgency or frequency. She does have urine incontinence intermittently. No fever or chills. She did not call her doctor about these symptoms. She denies any shortness of breath or cough. She does have dyspnea on exertion. No chest pain or palpitations. No abdominal pain. She denies nausea, vomiting, diarrhea or constipation issues. No anosmia or dysgeusia. No odynophagia or dysphagia. She states the flank pain is worse when she takes a deep breath and with palpation. She has a long history of UTIs and urinary issues and follows with Dr. Chang chronically. She presented to the ED for evaluation. In the ED, patient was hemodynamically stable. She was afebrile. She was 99% SpO2 on room air. [place] count [place] [address]. Creatinine 1.7 which is at her baseline. Urine was cloudy with 1+ protein, 1+ blood, 3+ leukocyte esterase and 50-75 white cells. Chest x-ray showed patchy bilateral infiltrates in lower lung zones compatible with pneumonia. CT of the abdomen pelvis showed multifocal bibasilar airspace consolidations with possible areas of cavitation consistent with pneumonia. She also had a proximal right ureteral and renal stones with mild hydronephrosis. Discussed with radiology who felt this was at the Rt UPJ and could be causing her pain. Regarding the lung findings, felt related to post-COVID scarring but recommended follow up images. Darren was started on Vanco and Levaquin and admitted for further care. Review of Systems Review of Systems: All systems reviewed & are unremarkable except as noted in HPI and below PMFSH Past Medical History Medical History Anemia of chronic disease Benign essential hypertension Chronic obstructive pulmonary disease, unspecified CKD (chronic kidney disease) stage 4, GFR 15-29 ml/min CML (chronic myelocytic leukemia) in remission since 2016 Depression with anxiety Diastolic CHF echo August 2017 GERD (gastroesophageal reflux disease) Gout Hyperlipidemia DIVINA (obstructive sleep apnea) (~11/2018) BiPAP 12/20 Osteoporosis Paroxysmal A-fib Peripheral neuropathy Sick sinus syndrome Umbilical hernia without obstruction and without gangrene Vitamin D deficiency Surgical History Surgical History Cardiac pacemaker in situ (~08/2017) History of appendectomy History of bladder surgery History of colonoscopy with polypectomy History of melanoma excision right nares History of total hysterectomy with bilateral salpingo-oophorectomy (BSO) History of total left knee replacement (TKR) History of total right knee replacement (~10/2008) Status post cataract extraction of both eyes with insertion of intraocular lens Status post cholecystectomy Family History Family History Mother Hypertension Breast cancer Heart disease Father Coronar
--- NOTE | 2020-10-10 17:34 | ADMGEN ---
This patient, Edel Rush, was admitted to Medical Room 349-01. Patient/family oriented to hospital policies and general routines including ID bracelet, bed and alarms, visiting hours, pain management, procedures, bathroom and other care routines, personal items, smoking policy, room service/diet, and visiting hours. Information on how to activate the Rapid Response Team has been discussed. Patient/Family are encouraged to report perceived risks to care and to ask questions if they do not understand what they are told or what they should do.
[2020-10-10] MEDS: SODIUM CHLORIDE 0.9% IV 1,000 ML 75 ML IV CONT (17:51)
[2020-10-10] MEDS: SOTALOL HCL 80 MG TABLET PO (21:15)
[2020-10-10] MEDS: HEPARIN SODIUM 5,000 UNITS/ML VIAL 5000 UNITS SUB-Q (21:22)
[2020-10-10] MEDS: MELATONIN 5 MG TABLET PO (22:40)
[2020-10-10] MEDS: SIMVASTATIN 20 MG TABLET 40 MG PO (22:40)
[2020-10-10] MEDS: lamoTRIgine 25 MG TABLET PO (22:48)
[2020-10-11] VITALS (8 sets, daily range): BP systolic 106–140; BP diastolic 51–74; PULSE 64–98; RESP 16–20; TEMP 36.1–36.7; O2SAT 97–99
[2020-10-11 06:06] LABS: Basophils Percent Auto 0.3 % (0.2-1.2); Eosinophils Absolute Auto 0.1 K/mm3 (0-0.3); Eosinophils Percent Auto 1.1 % (0-4.4); Hematocrit 33.5 % (37.0-47.0); Hemoglobin 10.7 g/dL (12.0-15.0); Immature Granulocyte Absolute 0.15 K/mm3 (0.00-0.031); Immature Granulocyte Percent A 1.4 % (0-0.5); Lymphocytes Absolute Auto 0.95 K/mm3 (0.9-3.2); Lymphocytes Percent Auto 8.8 % (18.3-44.2); Mean Corpuscular HGB Conc 31.9 g/dl (32-36); Mean Corpuscular Volume 97.1 fl (80-100); Mean Platelet Volume 11.8 fl (7.4-10.4); Monocytes Absolute Auto 1.2 K/mm3 (0.1-0.6); Monocytes Percent Auto 10.6 % (2.6-8.5); Neutrophils Absolute Auto 8.4 K/mm3 (1.3-6.7); Neutrophils Percent Auto 77.8 % (45.5-73.1); Platelet Count Result 147 k/mm3 (150-375); Red Blood Count 3.45 M/mm3 (4.2-5.4); Red Cell Distribution Width 14.6 % (11.5-14.5); White Blood Count 10.8 K/mm3 (4.5-10.0)
[2020-10-11 06:13] LABS: Anion Gap 5 mmol/L (8-16); Blood Urea Nitrogen 37 mg/dL (7-17); Calcium 8.2 mg/dL (8.4-10.2); Carbon Dioxide 24 mmol/L (22-30); Chloride 105 mmol/L (98-107); Estimated CRCL calculation 27 ml/min; Estimated Glomerular Filt Rate 29; Glucose 92 mg/dL (65-110); Potassium 4.2 mmol/L (3.4-5.0); Sodium 134 mmol/L (137-145)
[2020-10-11] MEDS: SODIUM CHLORIDE 0.9% IV 1,000 ML 75 ML IV CONT ×2 (06:49→22:08)
[2020-10-11] MEDS: SOTALOL HCL 80 MG TABLET PO ×2 (08:50→20:35)
[2020-10-11] MEDS: lamoTRIgine 25 MG TABLET PO (08:50)
[2020-10-11] MEDS: HEPARIN SODIUM 5,000 UNITS/ML VIAL 5000 UNITS SUB-Q ×2 (08:51→20:12)
--- NOTE | 2020-10-11 09:12 | WPDURCON ---
Assessment and Plan Assessment and plan (1) Ureterolithiasis: Code(s): N20.1 - Calculus of ureter Status: Acute Assessment and Plan: We had planned to place a stent this morning in the OR, however the patient had not been NPO overnight. Therefore, after speaking with the patient and her daughter we have decided to post pone her stent placement until tomorrow with Dr. Chang. Her pain is under control with meds at this time and she agrees to wait until tomorrow. (2) Obstruction of ureteropelvic junction (UPJ) due to stone: Code(s): N20.1 - Calculus of ureter Status: Acute Assessment and Plan: Obtain consent: Cystoscopy, right stent placement, right retrograde pyelogram. Keep NPO after midnight. Creatinine is elevated but appears to be chronically elevated, will monitor after stent placement to see if it decreases, however it seems unlikely that it will improve. (3) Urinary tract infection: Qualifiers: Hematuria presence: with hematuria Urinary tract infection type: site unspecified Qualified Code(s): N39.0 - Urinary tract infection, site not specified; R31.9 - Hematuria, unspecified Code(s): N39.0 - Urinary tract infection, site not specified Status: Acute Assessment and Plan: Continue IV antibiotics, tailor to culture results. WBC is improving, will continue to monitor. Urology Consult Note HPI Date Seen: 10/11/20 Requesting Physician: Chavez Portillo MD Primary Care Provider: Dorian Nunez DO Consult Narrative Narrative: Edel Rush is a 80 year old female who presented to the ER yesterday for acute onset of bilateral flank pain, greater in the right side. She denies nausea, vomiting, frequency, urgency, abdominal pain, dysuria or hematuria. Her WBC at admission was 14.4 and today is improving to 10.8, creatinine 1.70, UA is positive for infection, blood and urine cultures are pending at this time. Her CT scan upon admission shows a right proximal ureteral and renal stones with mild hydronephrosis, as well as pneumonia. She has a history of kidney stones and is a patient of Dr. Ontiveros who has had multiple surgeries on her stones and stents placed in the past. She has a known right kidney function of 19% or less noted from a previous renal lasix scan. She is currently on Vancomycin and Ceftriaxone, which appears to be helping her WBC. Review of Systems Cardiovascular: Cardiovascular: Denies chest pain Respiratory: Respiratory: Denies dyspnea Gastrointestinal: Gastrointestinal: Denies abdominal pain, Denies nausea and Denies vomiting Genitourinary: Genitourinary: Denies hematuria, Denies dysuria, Reports flank pain and Denies urinary urgency PMFSH Past Medical History Medical History Anemia of chronic disease Benign essential hypertension Chronic obstructive pulmonary disease, unspecified CKD (chronic kidney disease) stage 4, GFR 15-29 ml/min CML (chronic myelocytic leukemia) in remission since 2016 Depression with anxiety Diastolic CHF echo August 2017 GERD (gastroesophageal reflux disease) Gout Hyperlipidemia DIVINA (obstructive sleep apnea) (~11/2018) BiPAP 12/20 Osteoporosis Paroxysmal A-fib Peripheral neuropathy Sick sinus syndrome Umbilical hernia without obstruction and without gangrene Vitamin D deficiency Surgical History Surgical History Cardiac pacemaker in situ (~08/2017) History of appendectomy History of bladder surgery History of colonoscopy with polypectomy History of melanoma excision right nares History of total hysterectomy with bilateral salpingo-oophorectomy (BSO) History of total left knee replacement (TKR) History of total right knee replacement (~10/2008) Status post cataract extraction of both eyes with insertion of intraocular lens Status post cholecystectomy Family History Family History (Reviewe
--- NOTE | 2020-10-11 09:16 | PC.NURSE ---
During admission assessment, patient had expressed wishes to be a DNR. However, during morning rounds today, patient expressed new wishes to change code status to Full Code. Dr. Portillo notified.
--- NOTE | 2020-10-11 09:28 | PM.IMPN ---
Progress Note: A&P Assessment and Plan (1) Obstruction of ureteropelvic junction (UPJ) due to stone: Code(s): N20.1 - Calculus of ureter Status: Acute Assessment and Plan: CT scan showing right proximal ureteral and renal stones with mild hydronephrosis. Discussed with radiology and there was concern for a right UPJ stone. This could explain her significant CVA tenderness and flank pain. Will continue the IV abx with the adjustments listed below. Urology consulted and appreciate their input. Continue NS. (2) Urinary tract infection: Qualifiers: Hematuria presence: with hematuria Urinary tract infection type: site unspecified Qualified Code(s): N39.0 - Urinary tract infection, site not specified; R31.9 - Hematuria, unspecified Code(s): N39.0 - Urinary tract infection, site not specified Status: Acute Assessment and Plan: UA noted. UCx and BCx pending. Continue Vanco to cover for possible PNA. She received Levaquin in ED but changed to Rocephin. Narrow abx when able UCx growing EColi. SHe has a hx of ESBL so will change to Ertapenum. Follow up on results (3) Pneumonia: Qualifiers: Laterality: bilateral Lung location: lower lobe of lung Pneumonia type: due to unspecified organism Qualified Code(s): J18.9 - Pneumonia, unspecified organism Code(s): J18.9 - Pneumonia, unspecified organism Status: Acute Assessment and Plan: CT scan of the abdomen showing multifocal bibasilar airspace consolidation with possible areas of cavitation, consistent with pneumonia. She is still recovering from COVID. Discussed with radiology who felt more likely from post-COVID scarring but can not exclude bacterial PNA. BCx pending. Overall felt unlikely since no signifincat pulmonary complaints. Continue abx. Sputum ordered. (4) Leukocytosis: Qualifiers: Leukocytosis type: unspecified Qualified Code(s): D72.829 - Elevated white blood cell count, unspecified Code(s): D72.829 - Elevated white blood cell count, unspecified Status: Acute Assessment and Plan: WBC 14K on admission but better today at 10.8K. Probably related to the UTI. Follow (5) Pneumonia due to COVID-19 virus: Code(s): U07.1 - COVID-19; J12.82 - Pneumonia due to coronavirus disease 2019 Status: Acute Assessment and Plan: Patient was diagnosed with COVID PNA last admission. She probably has residual scarring by CT but can not exclude secondary PNA but feel less likely. As above. Remains on room air and asymptomatic from a pulmonary standpoint. (6) CKD (chronic kidney disease) stage 4, GFR 15-29 ml/min: Code(s): N18.4 - Chronic kidney disease, stage 4 (severe) Status: Acute Assessment and Plan: Cr 1.7 on admission and unchanged on repeat. She is at her baseline. Continue to follow. (7) DVT prophylaxis: Code(s): Z29.9 - Encounter for prophylactic measures, unspecified Status: Acute Assessment and Plan: Heparin Subjective Date/time seen: 10/11/20 09:28 Interval history: 80yo female with asthma, dCHF, CKD and recent hospitalization for COVID PNA who returns to the ED for complaints of back pain. Pain better in the right flank and left side resolved. Eating okay. No n/v. No CP or SOB. No further dysuria. Exam Narrative: Exam Narrative: AF 97.0 115/51 78 17 97% ra Gen - NARD Chest - clear to ausc bilaterally, nml RR CV - RRR S1/S2 Abd - soft, obese, no significant tenderness, +BS Back - very tender to palpation at the Rt CVA area. No left CVA tenderness Ext - no pedal edema Psych - normal mood and affect. Patient is pleasant and cooperative. Skin - warm and dry. Objective Data Vital Signs Vital Signs: Vital Signs - 24 hr 10/10/20 09:35 10/10/20 10:06 10/10/20 10:57 Temperature 98.3 F Pulse Rate 77 99 88 Respiratory Rate 16 22 H 12 Blood Pressure 11
[2020-10-11] MEDS: CYANOCOBALAMIN 500 MCG TABLET 2500 MCG BY MOUTH (11:11)
[2020-10-11] MEDS: ASPIRIN 81 MG ENTERIC TABLET PO (11:11)
[2020-10-11] MEDS: BUMETANIDE 1 MG TABLET PO (11:11)
[2020-10-11] MEDS: allopurinoL 100 MG TABLET PO (11:11)
[2020-10-11] MEDS: guaiFENesin 12 HR 600 MG TABCR 1200 MG PO ×2 (11:11→20:11)
[2020-10-11] MEDS: ISOSORBIDE MONONITRATE 30 MG TAB.ER.24H PO (11:11)
[2020-10-11] MEDS: MAGNESIUM OXIDE 400 MG TABLET PO (11:11)
[2020-10-11] MEDS: ACETAMINOPHEN 325 MG TABLET 650 MG PO ×2 (11:14→20:11)
[2020-10-11] MEDS: PANTOPRAZOLE 40 MG TABLET PO (11:57)
[2020-10-11] MEDS: CHOLECALCIFEROL 1,000 UNITS TABLET 2000 UNITS PO (11:57)
[2020-10-11] MEDS: ERTAPENEM 1 GM/NS 50 ML 1 GM/50 ML BAG IVPB (17:32)
[2020-10-11] MEDS: SIMVASTATIN 20 MG TABLET 40 MG PO (17:32)
[2020-10-11] MEDS: FLUTICASONE/SALMETEROL 115-21 MCG INHALER 1 PUFF 2 PUFF INHALATION (20:03)
[2020-10-11] MEDS: MELATONIN 5 MG TABLET PO (20:11)
[2020-10-12] VITALS (13 sets, daily range): BP systolic 110–152; BP diastolic 65–87; PULSE 64–120; RESP 13–22; TEMP 35.8–37.1; O2SAT 95–100
[2020-10-12 06:19] LABS: Hematocrit 30.8 % (37.0-47.0); Hemoglobin 9.6 g/dL (12.0-15.0); Immature Platelet Fraction Pct 5.7 % (0.9-11.2); Mean Corpuscular HGB Conc 31.2 g/dl (32-36); Mean Corpuscular Hemoglobin 30.5 pg (26-34); Mean Corpuscular Volume 97.8 fl (80-100); Mean Platelet Volume 11.6 fl (7.4-10.4); Platelet Count Result 110 k/mm3 (150-375); Red Blood Count 3.15 M/mm3 (4.2-5.4); Red Cell Distribution Width 14.6 % (11.5-14.5); White Blood Count 6.9 K/mm3 (4.5-10.0)
--- NOTE | 2020-10-12 06:19 | WPDHPUPDATE1 ---
History and Physical Update Update Date/Time: 10/12/20 06:19 History and Physical has been reviewed, including an updated exam of the patient. There are NO changes in the patient's condition. Risks, benefits, and alternatives have been discussed and questions answered. Patient agrees to proceed with procedure.
[2020-10-12 06:26] LABS: Albumin Level 2.6 g/dL (3.5-5.1); Anion Gap 6 mmol/L (8-16); Blood Urea Nitrogen 33 mg/dL (7-17); Calcium 8.4 mg/dL (8.4-10.2); Carbon Dioxide 24 mmol/L (22-30); Chloride 104 mmol/L (98-107); Estimated CRCL calculation 28 ml/min; Estimated Glomerular Filt Rate 31; Glucose 98 mg/dL (65-110); Magnesium 1.5 mg/dL (1.6-2.3); Phosphorus 3.7 mg/dL (2.5-4.5); Sodium 134 mmol/L (137-145)
[2020-10-12] MEDS: FLUTICASONE/SALMETEROL 115-21 MCG INHALER 1 PUFF 2 PUFF INHALATION ×2 (07:37→21:07)
[2020-10-12] MEDS: BUMETANIDE 1 MG TABLET PO (09:09)
[2020-10-12] MEDS: PANTOPRAZOLE 40 MG TABLET PO (09:09)
[2020-10-12] MEDS: SOTALOL HCL 80 MG TABLET PO ×2 (09:10→21:21)
[2020-10-12] MEDS: ASPIRIN 81 MG ENTERIC TABLET PO (09:10)
[2020-10-12] MEDS: ISOSORBIDE MONONITRATE 30 MG TAB.ER.24H PO (09:10)
[2020-10-12] MEDS: CHOLECALCIFEROL 1,000 UNITS TABLET 2000 UNITS PO (09:10)
[2020-10-12] MEDS: guaiFENesin 12 HR 600 MG TABCR 1200 MG PO ×2 (09:10→21:21)
[2020-10-12] MEDS: allopurinoL 100 MG TABLET PO (09:11)
[2020-10-12] MEDS: CYANOCOBALAMIN 500 MCG TABLET 2500 MCG BY MOUTH (09:11)
[2020-10-12] MEDS: MAGNESIUM OXIDE 400 MG TABLET PO (09:11)
[2020-10-12] MEDS: lamoTRIgine 25 MG TABLET PO (09:11)
[2020-10-12] MEDS: HEPARIN SODIUM 5,000 UNITS/ML VIAL 5000 UNITS SUB-Q ×2 (09:12→21:21)
--- NOTE | 2020-10-12 10:52 | PM.IMPN ---
Progress Note: A&P Assessment and Plan (1) Obstruction of ureteropelvic junction (UPJ) due to stone: Code(s): N20.1 - Calculus of ureter Status: Acute Assessment and Plan: CT scan showing right proximal ureteral and renal stones with mild hydronephrosis. Discussed with radiology and there was concern for a right UPJ stone. This could explain her significant CVA tenderness and flank pain. Will continue the IV abx. Urology consulted with plans for cystoscopy today. Stop NS when okay with Urology. (2) Urinary tract infection: Qualifiers: Hematuria presence: with hematuria Urinary tract infection type: site unspecified Qualified Code(s): N39.0 - Urinary tract infection, site not specified; R31.9 - Hematuria, unspecified Code(s): N39.0 - Urinary tract infection, site not specified Status: Acute Assessment and Plan: UA noted. UCx growing ESBL EColi. BCx NGTD/pending. She has a hx of ESBL so she was changed to Ertapenem 10/11. (3) Pneumonia: Qualifiers: Laterality: bilateral Lung location: lower lobe of lung Pneumonia type: due to unspecified organism Qualified Code(s): J18.9 - Pneumonia, unspecified organism Code(s): J18.9 - Pneumonia, unspecified organism Status: Acute Assessment and Plan: CT scan of the abdomen showing multifocal bibasilar airspace consolidation with possible areas of cavitation, consistent with pneumonia. She is still recovering from COVID. Discussed with radiology who felt more likely from post-COVID scarring but can not exclude bacterial PNA. BCx (1of2) is NGTD; the other is pending. Overall felt unlikely since no significant pulmonary complaints. Continue Vanco to cover for possible PNA. Sputum ordered. (4) Leukocytosis: Qualifiers: Leukocytosis type: unspecified Qualified Code(s): D72.829 - Elevated white blood cell count, unspecified Code(s): D72.829 - Elevated white blood cell count, unspecified Status: Acute Assessment and Plan: WBC 14K on admission but has normalized. Probably related to the UTI. Follow. (5) Pneumonia due to COVID-19 virus: Code(s): U07.1 - COVID-19; J12.82 - Pneumonia due to coronavirus disease 2019 Status: Acute Assessment and Plan: Patient was diagnosed with COVID PNA last admission. She probably has residual scarring by CT but can not exclude secondary PNA but feel less likely. As above. Remains on room air and asymptomatic from a pulmonary standpoint. (6) CKD (chronic kidney disease) stage 4, GFR 15-29 ml/min: Code(s): N18.4 - Chronic kidney disease, stage 4 (severe) Status: Acute Assessment and Plan: Cr 1.7 on admission and relatively unchanged on repeat. She is at her baseline. Continue to follow. (7) DVT prophylaxis: Code(s): Z29.9 - Encounter for prophylactic measures, unspecified Status: Acute Assessment and Plan: Heparin Subjective Date/time seen: 10/12/20 10:52 Interval history: 80yo female with asthma, dCHF, CKD and recent hospitalization for COVID PNA who returns to the ED for complaints of back pain. Slept okay. Tolerated the CPAP last night. Had some dull chest pain right sided that she has intermittently at home related to how she lays. Pain better when she sits up. Right flank pain better. Exam Narrative: AF 98.8 144/79 79 18 98% ra Gen - NARD Chest - cCTA bilaterally, nml RR CV - RRR S1/S2 Abd - soft, obese, NT, +BS Back - minimal tenderness to the Rt CVA area. No left CVA tenderness Ext - bilateral woody indurated pedal edema Psych - normal mood and affect. Patient is pleasant and cooperative. Skin - warm and dry. Objective Data Vital Signs Vital Signs: Vital Signs - 24 hr 10/11/20 14:33 10/11/20 20:07 10/11/20 20:18 Temperature 98.1 F 97 F L Pulse Rate 64 94 93 Respiratory Rate 18 20 17 Blood Pressure 106/58 L 138/74
--- NOTE | 2020-10-12 12:49 | PC.NURSE ---
Pt to OR per stretcher.
--- NOTE | 2020-10-12 13:16 | WPDANESEPPF ---
Anes - Initial Pre Proc Eval Procedure: Operation Date: 10/12/20 14:15 Proposed Procedures p Cystoscopy, Right Retrograde Pyelogram, Right Ureteral Stent Placement(Right) - Brandon Chang MD Date/Time: 10/12/20 13:16 Surgeon: Chavez Portillo MD Pre Op Diagnosis: pneumonia,urianry tract infection Patient Data Age: 80 Gender: F Height: 1.6 m Weight: 95.148 kg Last Vital Signs Temp 37.1 C 10/12/20 07:34 Pulse 79 10/12/20 09:10 Resp 18 10/12/20 07:38 BP 144/79 H 10/12/20 07:34 Pulse Ox 98 10/12/20 07:38 Allergies Allergy/AdvReac Type Severity Reaction Status Date / Time azithromycin Allergy Intermediate Other Verified 10/10/20 17:50 lisinopril Allergy Intermediate Unknown Verified 10/10/20 17:50 nitroglycerin Allergy Mild SKIN RASH Verified 09/27/20 00:31 UNDER NITRO PATCH NORMA Inhibitors Allergy Unknown Unknown Verified 10/10/20 17:50 phenazopyridine Allergy Unknown Unknown Verified 10/10/20 17:50 Home Medications Medication Instructions Recorded Confirmed Type aspirin 81 mg tablet,delayed 81 mg PO DAILY 02/17/19 10/10/20 History release diphenhydramine HCl 25 mg tablet 25 mg PO TID 02/17/19 10/10/20 History ipratropium 0.5 mg-albuterol 3 mg 3 ml INHALATION Q4H PRN #180 ml 02/25/19 10/10/20 Rx (2.5 mg base)/3 mL nebulization soln isosorbide mononitrate 30 mg 30 mg PO DAILY 05/15/20 10/10/20 History tablet,extended release 24 hr albuterol sulfate [ProAir HFA] 2 puff INHALATION Q6H PRN 09/27/20 10/10/20 History allopurinol 100 mg PO DAILY 09/27/20 10/10/20 History bumetanide 1 mg PO DAILY 09/27/20 10/10/20 History cholecalciferol (vitamin D3) 50 mcg PO DAILY 09/27/20 10/10/20 History cyanocobalamin (vitamin B-12) 2,500 mcg SUBLINGUAL DAILY 09/27/20 10/10/20 History esomeprazole magnesium 40 mg PO DAILY 09/27/20 10/10/20 History fluticasone propion-salmeterol 1 inh INHALATION BID 09/27/20 10/10/20 History [Wixela Inhub] lamotrigine 25 mg PO DAILY 09/27/20 10/10/20 History magnesium oxide 400 mg PO DAILY 09/27/20 10/10/20 History melatonin 5 mg PO HS 09/27/20 10/10/20 History potassium chloride 20 meq PO DAILY 09/27/20 10/10/20 History simvastatin 40 mg PO DAILY 09/27/20 10/10/20 History sotalol 80 mg PO BID 09/27/20 10/10/20 History triamcinolone acetonide 1 applic TOPICAL BID PRN 09/27/20 10/10/20 History guaifenesin [Mucus Relief ER] 1,200 mg PO Q12HR #14 tablet 10/02/20 10/10/20 Rx tiotropium bromide [Spiriva 2 inh INHALATION QAM #4 g 10/02/20 10/10/20 Rx Respimat] Laboratory Tests 10/12/20 10/12/20 05:43 05:43 WBC 6.9 K/mm3 K/mm3 (4.5-10.0) RBC 3.15 M/mm3 L M/mm3 (4.2-5.4) Hgb 9.6 g/dL L g/dL (12.0-15.0) Hct 30.8 % L % (37.0-47.0) MCV 97.8 fl fl (80-100) MCH 30.5 pg pg (26-34) MCHC 31.2 g/dl L g/dl (32-36) RDW 14.6 % H % (11.5-14.5) Plt Count 110 k/mm3 L k/mm3 (150-375) MPV 11.6 fl H fl (7.4-10.4) % Immature Plt Fraction 5.7 % % (0.9-11.2) Sodium 134 mmol/L L mmol/L (137-145) Potassium 4.0 mmol/L mmol/L (3.4-5.0) Chloride 104 mmol/L mmol/L (98-107) Carbon Dioxide 24 mmol/L mmol/L (22-30) Anion Gap 6 mmol/L L mmol/L (8-16) BUN 33 mg/dL H mg/dL (7-17) Creatinine 1.60 mg/dL H mg/dL (0.7-1.0) Estim Creat Clear Calc 28 ml/min ml/min Estimated GFR 31 L (59 - ) Glucose 98 mg/dL mg/dL (65-110) Calcium 8.4 mg/dL mg/dL (8.4-10.2) Phosphorus 3.7 mg/dL mg/dL (2.5-4.5) Magnesium 1.5 mg/dL L mg/dL (1.6-2.3) Albumin 2.6 g/dL L g/dL (3.5-5.1) Patient hx anesthesia problems: none Family hx anesthesia problems: none [facility] Past Medical History Medical History Anemia of chronic disease Benign essential hypertension Chronic obstructive pulmonary disease, unspecified CKD (chronic k
[2020-10-12] MEDS: LACTATED RINGERS 1,000 ML 30 ML IV CONT (13:31)
--- NOTE | 2020-10-12 14:04 | PC.NURSE ---
On 10/12/20, the student, [Darryl Park], provided care and completed [facility] documentation on this patient. I have reviewed the student's documentation and agree with the findings.
[2020-10-12] MEDS: LIDOCAINE HCL 2% GEL UROJET 10 ML PKG MUCOUS MEM (15:22)
--- NOTE | 2020-10-12 15:36 | W.PM.PROC2 ---
Procedure Note - Detailed Date of Procedure 10/12/20 Pre-op Diagnosis pneumonia,urianry tract infection, right mid ureteral calculus Post-op Diagnosis same Procedure Performed cystoscopy, right retrograde pyelography, right ureteroscopy and right ureteral stent placement Surgeon Brandon Chang MD Anesthesia general Description of Procedure Patient brought to the operative suite where she has prepped draped in routine sterile fashion while in dorsal lithotomy position. Cystoscopy shows normal bladder neck and urethra. Bladder slightly hyperemic consistent with recent urinary tract infection. She has a single orthotopic ureteral orifice bilaterally. 0.035 in glidewire was advanced to right renal pelvis. Not I opted to do brief ureteroscopy the distal ureter to see if perhaps her stone had dropped into and easily accessible/ removable position. I dilated the distal ureter with an 8 F 10 F dilator. Ureteroscopy is undertaken with a short tapered semi-rigid ureteral scope. I was unable to identify her ureteral stone. Retrograde pyelogram was used to outline the collecting system and ensure appropriate positioning of the stent. A 4.8 F variable length stent is position with proximal coil in renal pelvis and distal coil in the bladder. Scopes wires removed and she was taken recovery room good condition. Estimated Blood Loss 0 Urine Output 400 Drains Yes Packing No Pathology none sent Complications No immediate complications Condition stable Disposition PACU
--- NOTE | 2020-10-12 16:23 | PC.NURSE ---
Patient returned from OR. Report received from RUDDY Choudhury.
[2020-10-12] MEDS: SIMVASTATIN 20 MG TABLET 40 MG PO (17:00)
[2020-10-12] MEDS: ERTAPENEM 1 GM/NS 50 ML 1 GM/50 ML BAG IVPB (17:00)
[2020-10-12] MEDS: MELATONIN 5 MG TABLET PO (21:21)
[2020-10-12] MEDS: SODIUM CHLORIDE 0.9% IV 1,000 ML 75 ML IV CONT (21:22)
[2020-10-13] VITALS (10 sets, daily range): BP systolic 141–151; BP diastolic 58–86; PULSE 62–80; RESP 16–22; TEMP 35.7–36.4; O2SAT 94–98
[2020-10-13 06:06] LABS: Hematocrit 30.4 % (37.0-47.0); Hemoglobin 9.7 g/dL (12.0-15.0); Mean Corpuscular HGB Conc 31.9 g/dl (32-36); Mean Corpuscular Hemoglobin 30.7 pg (26-34); Mean Corpuscular Volume 96.2 fl (80-100); Mean Platelet Volume 11.3 fl (7.4-10.4); Platelet Count Result 104 k/mm3 (150-375); Red Blood Count 3.16 M/mm3 (4.2-5.4); White Blood Count 5.3 K/mm3 (4.5-10.0)
[2020-10-13 06:23] LABS: Anion Gap 6 mmol/L (8-16); Blood Urea Nitrogen 26 mg/dL (7-17); Calcium 8.5 mg/dL (8.4-10.2); Carbon Dioxide 23 mmol/L (22-30); Chloride 106 mmol/L (98-107); Estimated CRCL calculation 28 ml/min; Estimated Glomerular Filt Rate 31; Glucose 139 mg/dL (65-110); Potassium 4.5 mmol/L (3.4-5.0); Sodium 135 mmol/L (137-145)
--- NOTE | 2020-10-13 08:18 | WPDANESPN ---
Anes - Prog Note Post-Op Date/Time: 10/13/20 08:18 Cardiovascular status: normal Respiratory status: normal Airway patency: baseline Mental status: baseline Post-Op hydration status: normal Vital Signs: Last Vital Signs Temp 36.4 C 10/13/20 07:45 Pulse 71 10/13/20 07:45 Resp 20 10/13/20 07:45 BP 151/85 H 10/13/20 07:45 Pulse Ox 96 10/13/20 07:45 Pain Score (VAS): 0 I/O: Intake & Output 10/12/20 10/13/20 10/13/20 23:59 07:59 15:59 Intake Total 1045 550 Output Total 600 Balance 445 550 Laboratory Tests 10/13/20 05:41 10/13/20 05:41 10/13/20 10/13/20 05:41 05:41 WBC 5.3 RBC 3.16 L Hgb 9.7 L Hct 30.4 L MCV 96.2 MCH 30.7 MCHC 31.9 L RDW 14.0 Plt Count 104 L MPV 11.3 H Sodium 135 L Potassium 4.5 Chloride 106 Carbon Dioxide 23 Anion Gap 6 L BUN 26 H Creatinine 1.60 H Estim Creat Clear Calc 28 Estimated GFR 31 L Glucose 139 H Calcium 8.5 Microbiology 10/10/20 12:27 Blood Blood Culture - Preliminary 10/10/20 11:18 Blood Blood Culture - Preliminary 10/10/20 10:33 Unspecified Urine Culture - Final Escherichia Coli (ESBL) Post-procedural complaints: none Patient Feedback: Patient satisfied with anesthetic care.
[2020-10-13] MEDS: SOTALOL HCL 80 MG TABLET PO ×2 (09:27→21:34)
[2020-10-13] MEDS: CYANOCOBALAMIN 500 MCG TABLET 2500 MCG BY MOUTH (09:27)
[2020-10-13] MEDS: CHOLECALCIFEROL 1,000 UNITS TABLET 2000 UNITS PO (09:28)
[2020-10-13] MEDS: guaiFENesin 12 HR 600 MG TABCR 1200 MG PO ×2 (09:28→21:33)
[2020-10-13] MEDS: ISOSORBIDE MONONITRATE 30 MG TAB.ER.24H PO (09:28)
[2020-10-13] MEDS: MAGNESIUM OXIDE 400 MG TABLET PO (09:28)
[2020-10-13] MEDS: ASPIRIN 81 MG ENTERIC TABLET PO (09:28)
[2020-10-13] MEDS: allopurinoL 100 MG TABLET PO (09:28)
[2020-10-13] MEDS: BUMETANIDE 1 MG TABLET PO (09:28)
[2020-10-13] MEDS: lamoTRIgine 25 MG TABLET PO (09:28)
[2020-10-13] MEDS: PANTOPRAZOLE 40 MG TABLET PO (09:28)
[2020-10-13] MEDS: HEPARIN SODIUM 5,000 UNITS/ML VIAL 5000 UNITS SUB-Q ×2 (09:29→21:34)
--- NOTE | 2020-10-13 10:09 | WPDUROPN2 ---
Progress Note: A&P Assessment and Plan (1) Ureterolithiasis: Code(s): N20.1 - Calculus of ureter Status: Acute Assessment and Plan: Tolerating stent well and reports passing a couple small stones. Should f/u with us in 2-3 weeks -> will check KUB to see if stones have passed. Subjective Subjective Date/Time Seen: 10/13/20 10:09 Tolerating stent well Review of Systems Cardiovascular: Cardiovascular: Denies chest pain, Denies lightheadedness, Denies palpitations and Denies dyspnea Respiratory: Respiratory: Denies dyspnea Gastrointestinal: Gastrointestinal: Denies diarrhea, Denies nausea and Denies vomiting Genitourinary: Genitourinary: Denies hematuria and Denies dysuria Endocrine: Endocrine: Denies palpitations Exam Const: General: no acute distress Resp: Effort & Inspection: normal respiratory effort GI: Inspection: non-distended GI Palp: No abdominal tenderness and No Guarding due to palpation present (GI) Auscultation: normal bowel sounds Objective Data Vital Signs Vital Signs: Vital Signs - 24 hr 10/12/20 13:33 10/12/20 15:37 10/12/20 15:45 Temperature 98.1 F 98.3 F Pulse Rate 92 96 120 H Respiratory Rate 18 22 H 13 Blood Pressure 152/87 H 118/67 117/87 Pulse Oximetry 100 100 99 10/12/20 16:00 10/12/20 16:13 10/12/20 17:16 Temperature 98.7 F Pulse Rate 99 97 69 Respiratory Rate 20 16 18 Blood Pressure 118/66 110/68 149/72 H Pulse Oximetry 95 95 95 10/12/20 19:51 10/12/20 21:09 10/12/20 21:21 Temperature 96.5 F L Pulse Rate 72 64 88 Respiratory Rate 16 20 Blood Pressure 140/65 Pulse Oximetry 96 96 10/13/20 00:00 10/13/20 00:56 10/13/20 03:40 Temperature 96.7 F L Pulse Rate 65 66 62 Respiratory Rate 18 16 22 H Blood Pressure 141/58 H Pulse Oximetry 96 94 96 10/13/20 06:15 10/13/20 07:45 10/13/20 09:27 Temperature 96.8 F L 97.6 F Pulse Rate 80 71 71 Respiratory Rate 18 20 Blood Pressure 145/86 H 151/85 H Pulse Oximetry 95 96 Intake/Output Intake/Output: Intake & Output 10/10/20 10/11/20 10/12/20 10/13/20 23:59 23:59 23:59 23:59 Intake Total 700 3620 1990 1790 Output Total 700 1850 Balance 700 2920 140 1790 Meds/Results Medications: Active Medications Generic Name Dose Route Start Last Admin Trade Name Freq PRN Reason Stop Dose Admin Acetaminophen 650 mg 10/11/20 09:59 10/11/20 20:11 Acetaminophen 325 Mg Tablet PO 650 mg Q6H PRN Administration Mild Pain (1-5) Or Fever Albuterol 2.5 mg 10/11/20 10:27 Albuterol Sulfate Neb 2.5 Mg/0.5 Ml Inh INHALATION Q4HRT PRN shortness of breath or wheezin Allopurinol 100 mg 10/11/20 09:45 10/13/20 09:28 Allopurinol 100 Mg Tablet PO 100 mg DAILY NACHO Administration Aspirin 81 mg 10/11/20 09:40 10/13/20 09:28 Aspirin 81 Mg Enteric Tablet PO 81 mg DAILY NACHO Administration Bumetanide 1 mg 10/11/20 09:45 10/13/20 09:28 Bumetanide 1 Mg Tablet PO 1 mg DAILY NACHO Administration Cyanocobalamin 2,500 mcg 10/11/20 09:45 10/13/20 09:27 Cyanocobalamin 500 Mcg Tablet BY MOUTH 2,500 mcg DAILY NACHO Administration Fentanyl Citrate 25 mcg 10/12/20 13:28 Fentanyl Citrate Inj (*Crx) 100 Mcg/2 Ml Vial IV PUSH Q2M PRN Pain Guaifenesin 1,200 mg 10/11/20 09:45 10/13/20 09:28 Guaifenesin 12 Hr 600 Mg Tabcr PO 1,200 mg Q12HR NACHO Administration Heparin Sodium (Porcine) 5,000 units 10/10/20 21:00 10/13/20 09:29 Heparin Sodium 5,000 Units/Ml Vial SUB-Q 5,000 units Q12HR NACHO Administration Vancomycin HCl 1,500 mg in 500 mls @ 333.333 mls/hr 10/12/20 01:00 10/12/20 03:22 Vancomycin 1,500 Mg/D5w 500 Ml IVPB Infused Q36H NACHO Infusion Ertapenem 1 gm in 50 mls @ 100 mls/hr 10/11/20 18:00 10/12/20 17:33 Invanz 1 Gm/Ns 50 Ml IVPB Infused Q24H NACHO Infusion Lactated Ringer's 1,000 mls @ 30 mls/hr 10/12/20 13:30 10/12/20 16:15 Lr - Lactated Ringers Iv IV CONT Inf
--- NOTE | 2020-10-13 10:57 | PC.NURSE ---
On 10/13/20, the student, [Darryl Park], provided care and completed [facility] documentation on this patient. I have reviewed the student's documentation and agree with the findings.
[2020-10-13] MEDS: FLUTICASONE/SALMETEROL 115-21 MCG INHALER 1 PUFF 2 PUFF INHALATION ×2 (11:04→21:45)
[2020-10-13 12:29] LABS: Vancomycin Trough 10.7 ug/mL (10.0-20.0)
--- NOTE | 2020-10-13 15:51 | PM.IMPN ---
Progress Note: A&P Assessment and Plan (1) Obstruction of ureteropelvic junction (UPJ) due to stone: Code(s): N20.1 - Calculus of ureter Status: Acute Assessment and Plan: CT scan showing right proximal ureteral and renal stones with mild hydronephrosis. Discussed with radiology and there was concern for a right UPJ stone. This could explain her significant CVA tenderness and flank pain. Urology consulted and patient underwent cystoscopy, right retrograde pyelography, right ureteroscopy and right ureteral stent placement. She toelrated the procedure well. She is passing small stones. Her pain is much better. (2) Urinary tract infection: Qualifiers: Hematuria presence: with hematuria Urinary tract infection type: site unspecified Qualified Code(s): N39.0 - Urinary tract infection, site not specified; R31.9 - Hematuria, unspecified Code(s): N39.0 - Urinary tract infection, site not specified Status: Acute Assessment and Plan: UA noted. UCx growing ESBL EColi. BCx NGTD. Continue Ertapenem that was started on 10/11. Will need to remain hospitalized since can not put in a midline due to her CKD. (3) Pneumonia: Qualifiers: Laterality: bilateral Lung location: lower lobe of lung Pneumonia type: due to unspecified organism Qualified Code(s): J18.9 - Pneumonia, unspecified organism Code(s): J18.9 - Pneumonia, unspecified organism Status: Acute Assessment and Plan: CT scan of the abdomen showing multifocal bibasilar airspace consolidation with possible areas of cavitation, consistent with pneumonia. She is still recovering from COVID. Discussed with radiology who felt more likely from post-COVID scarring but can not exclude bacterial PNA. Overall felt unlikely since no signifincat pulmonary complaints. CT Chest consistent with subacute COVID pneumonia although other infectious etiologies also possible. Overall, feel that this is just resolving COVID. BCx NGTD. Stop Vanco (4) Leukocytosis: Qualifiers: Leukocytosis type: unspecified Qualified Code(s): D72.829 - Elevated white blood cell count, unspecified Code(s): D72.829 - Elevated white blood cell count, unspecified Status: Acute Assessment and Plan: WBC 14K on admission but has normalized. Probably related to the UTI. Follow. (5) Pneumonia due to COVID-19 virus: Code(s): U07.1 - COVID-19; J12.82 - Pneumonia due to coronavirus disease 2019 Status: Acute Assessment and Plan: Patient was diagnosed with COVID PNA last admission. She probably has residual scarring by CT but can not exclude 2nd PNA. Remains on room air and relatively asymptomatic from a pulmonary standpoint. As above. (6) CKD (chronic kidney disease) stage 4, GFR 15-29 ml/min: Code(s): N18.4 - Chronic kidney disease, stage 4 (severe) Status: Acute Assessment and Plan: Cr 1.7 on admission and relatively unchanged on repeat. She is at her baseline. Continue to follow. (7) DVT prophylaxis: Code(s): Z29.9 - Encounter for prophylactic measures, unspecified Status: Acute Assessment and Plan: Heparin Subjective Date/time seen: 10/13/20 15:51 Interval history: 80yo female with asthma, dCHF, CKD and recent hospitalization for COVID PNA who returns to the ED for complaints of back pain. No issues overnight. No CP or SOB. No back or flank pain now. Exam Narrative: AF 97.6 151/85 71 20 96% ra Gen - NARD Chest - CTA bilaterally, nml RR CV - RRR S1/S2 Abd - soft, obese, NT, +BS Back - no CVA tenderness Ext - bilateral woody indurated pedal edema Psych - normal mood and affect. Patient is pleasant and cooperative. Skin - warm and dry. Objective Data Vital Signs Vital Signs: Vital Signs - 24 hr 10/12/20 16:00 10/12/20 16:13 10/12/20 17:16 Temperature 98.7 F Pulse Rate 99 97 69 Respiratory Rate
[2020-10-13] MEDS: ERTAPENEM 1 GM/NS 50 ML 1 GM/50 ML BAG IVPB (17:14)
[2020-10-13] MEDS: SIMVASTATIN 20 MG TABLET 40 MG PO (17:15)
[2020-10-13] MEDS: MICONAZOLE NITRATE 2% VAGINAL CREAM 45 GM TUBE 1 APPFUL VAGINAL (21:33)
[2020-10-13] MEDS: MELATONIN 5 MG TABLET PO (21:33)
[2020-10-14] VITALS (8 sets, daily range): BP systolic 144–153; BP diastolic 70–85; PULSE 70–86; RESP 18–20; TEMP 35.9–36.8; O2SAT 95–99
[2020-10-14] MEDS: FLUTICASONE/SALMETEROL 115-21 MCG INHALER 1 PUFF 2 PUFF INHALATION ×2 (07:57→20:09)
--- NOTE | 2020-10-14 08:01 | PM.IMPN ---
Progress Note: A&P Assessment and Plan (1) Obstruction of ureteropelvic junction (UPJ) due to stone: Code(s): N20.1 - Calculus of ureter Status: Acute Assessment and Plan: CT scan showing right proximal ureteral and renal stones with mild hydronephrosis with concern for a right UPJ stone. This could explain her significant CVA tenderness and flank pain. Urology consulted and patient underwent cystoscopy, right retrograde pyelography, right ureteroscopy and right ureteral stent placement. She toterated the procedure well. She is passing small stones. Her pain is much better. Outpatient follow-up with urology at the time of discharge to remove ureter extent as an outpatient. (2) Urinary tract infection: Qualifiers: Hematuria presence: with hematuria Urinary tract infection type: site unspecified Qualified Code(s): N39.0 - Urinary tract infection, site not specified; R31.9 - Hematuria, unspecified Code(s): N39.0 - Urinary tract infection, site not specified Status: Acute Assessment and Plan: UA noted. UCx growing ESBL EColi. BCx NGTD. Continue Ertapenem that was started on 10/11. Will need to remain hospitalized since can not put in a midline due to her CKD. She would need 7 day course in total. (3) Pneumonia: Qualifiers: Laterality: bilateral Lung location: lower lobe of lung Pneumonia type: due to unspecified organism Qualified Code(s): J18.9 - Pneumonia, unspecified organism Code(s): J18.9 - Pneumonia, unspecified organism Status: Acute Assessment and Plan: CT scan of the abdomen showing multifocal bibasilar airspace consolidation with possible areas of cavitation, consistent with pneumonia. She is still recovering from COVID. Discussed with radiology who felt more likely from post-COVID scarring but can not exclude bacterial PNA. Overall felt unlikely since no signifincat pulmonary complaints. CT Chest consistent with subacute COVID pneumonia although other infectious etiologies also possible. Overall, feel that this is just resolving COVID. BCx NGTD. Stop Vanco (4) Leukocytosis: Qualifiers: Leukocytosis type: unspecified Qualified Code(s): D72.829 - Elevated white blood cell count, unspecified Code(s): D72.829 - Elevated white blood cell count, unspecified Status: Acute Assessment and Plan: WBC 14K on admission but has normalized. Probably related to the UTI. Continue to monitor. (5) Pneumonia due to COVID-19 virus: Code(s): U07.1 - COVID-19; J12.82 - Pneumonia due to coronavirus disease 2019 Status: Acute Assessment and Plan: Patient was diagnosed with COVID PNA last admission. She probably has residual scarring by CT but can not exclude 2nd PNA. Remains on room air and relatively asymptomatic from a pulmonary standpoint. As above. (6) CKD (chronic kidney disease) stage 4, GFR 15-29 ml/min: Code(s): N18.4 - Chronic kidney disease, stage 4 (severe) Status: Acute Assessment and Plan: Cr 1.7 on admission and relatively unchanged on repeat. She is at her baseline. Continue to follow. (7) DVT prophylaxis: Code(s): Z29.9 - Encounter for prophylactic measures, unspecified Status: Acute Assessment and Plan: Heparin Subjective Date/time seen: 10/14/20 08:01 Interval history: 80yo female with asthma, dCHF, CKD and recent hospitalization for COVID PNA who returns to the ED for complaints of back pain. No issues overnight. She denied have any chest pain or shortness of breath. Her flank pain has improved significantly. She denied have any nausea vomiting or diarrhea. Review of Systems Review of Systems: All systems reviewed & are unremarkable except as noted in HPI and below Exam Narrative: AF 97.6 151/85 71 20 96% ra Gen - NARD Chest - CTA bilaterally, nml RR CV - RRR S1/S2 Abd - soft, obese, NT, +BS Ba
[2020-10-14] MEDS: PANTOPRAZOLE 40 MG TABLET PO (09:52)
[2020-10-14] MEDS: allopurinoL 100 MG TABLET PO (09:52)
[2020-10-14] MEDS: guaiFENesin 12 HR 600 MG TABCR 1200 MG PO ×2 (09:52→20:33)
[2020-10-14] MEDS: SOTALOL HCL 80 MG TABLET PO ×2 (09:52→20:33)
[2020-10-14] MEDS: MAGNESIUM OXIDE 400 MG TABLET PO (09:52)
[2020-10-14] MEDS: ASPIRIN 81 MG ENTERIC TABLET PO (09:53)
[2020-10-14] MEDS: HEPARIN SODIUM 5,000 UNITS/ML VIAL 5000 UNITS SUB-Q ×2 (09:53→20:32)
[2020-10-14] MEDS: CHOLECALCIFEROL 1,000 UNITS TABLET 2000 UNITS PO (09:53)
[2020-10-14] MEDS: BUMETANIDE 1 MG TABLET PO (09:53)
[2020-10-14] MEDS: ISOSORBIDE MONONITRATE 30 MG TAB.ER.24H PO (09:53)
[2020-10-14] MEDS: lamoTRIgine 25 MG TABLET PO (09:53)
[2020-10-14] MEDS: CYANOCOBALAMIN 500 MCG TABLET 2500 MCG BY MOUTH (09:53)
[2020-10-14] MEDS: SIMVASTATIN 20 MG TABLET 40 MG PO (18:11)
[2020-10-14] MEDS: ERTAPENEM 1 GM/NS 50 ML 1 GM/50 ML BAG IVPB (18:11)
[2020-10-14] MEDS: MICONAZOLE NITRATE 2% VAGINAL CREAM 45 GM TUBE 1 APPFUL VAGINAL (20:33)
[2020-10-14] MEDS: MELATONIN 5 MG TABLET PO (20:33)
[2020-10-15] VITALS (7 sets, daily range): BP systolic 118–144; BP diastolic 77–82; PULSE 72–94; RESP 18; TEMP 36.1–36.9; O2SAT 96–98
[2020-10-15 05:51] LABS: Anion Gap 7 mmol/L (8-16); Blood Urea Nitrogen 34 mg/dL (7-17); Carbon Dioxide 24 mmol/L (22-30); Chloride 103 mmol/L (98-107); Estimated CRCL calculation 27 ml/min; Estimated Glomerular Filt Rate 29; Glucose 94 mg/dL (65-110); Potassium 4.4 mmol/L (3.4-5.0); Sodium 134 mmol/L (137-145)
[2020-10-15] MEDS: CYANOCOBALAMIN 500 MCG TABLET 2500 MCG BY MOUTH (08:29)
[2020-10-15] MEDS: lamoTRIgine 25 MG TABLET PO (08:30)
[2020-10-15] MEDS: ISOSORBIDE MONONITRATE 30 MG TAB.ER.24H PO (08:30)
[2020-10-15] MEDS: MAGNESIUM OXIDE 400 MG TABLET PO (08:30)
[2020-10-15] MEDS: SOTALOL HCL 80 MG TABLET PO ×2 (08:30→20:25)
[2020-10-15] MEDS: BUMETANIDE 1 MG TABLET PO (08:30)
[2020-10-15] MEDS: CHOLECALCIFEROL 1,000 UNITS TABLET 2000 UNITS PO (08:30)
[2020-10-15] MEDS: allopurinoL 100 MG TABLET PO (08:31)
[2020-10-15] MEDS: HEPARIN SODIUM 5,000 UNITS/ML VIAL 5000 UNITS SUB-Q ×2 (08:31→20:25)
[2020-10-15] MEDS: ASPIRIN 81 MG ENTERIC TABLET PO (08:31)
[2020-10-15] MEDS: guaiFENesin 12 HR 600 MG TABCR 1200 MG PO ×2 (08:31→21:14)
[2020-10-15] MEDS: PANTOPRAZOLE 40 MG TABLET PO (08:31)
[2020-10-15] MEDS: FLUTICASONE/SALMETEROL 115-21 MCG INHALER 1 PUFF 2 PUFF INHALATION ×2 (09:14→19:43)
--- NOTE | 2020-10-15 12:58 | PM.IMPN ---
Progress Note: A&P Assessment and Plan (1) Obstruction of ureteropelvic junction (UPJ) due to stone: Code(s): N20.1 - Calculus of ureter Status: Acute Assessment and Plan: CT scan showing right proximal ureteral and renal stones with mild hydronephrosis with concern for a right UPJ stone. This could explain her significant CVA tenderness and flank pain. Urology consulted and patient underwent cystoscopy, right retrograde pyelography, right ureteroscopy and right ureteral stent placement. She toterated the procedure well. She is passing small stones. Her pain is much better. Outpatient follow-up with urology at the time of discharge to remove ureteric stent as an outpatient. (2) Urinary tract infection: Qualifiers: Hematuria presence: with hematuria Urinary tract infection type: site unspecified Qualified Code(s): N39.0 - Urinary tract infection, site not specified; R31.9 - Hematuria, unspecified Code(s): N39.0 - Urinary tract infection, site not specified Status: Acute Assessment and Plan: UA noted. UCx growing ESBL EColi. BCx NGTD. Continue Ertapenem that was started on 10/11. Will need to remain hospitalized since can not put in a midline due to her CKD. She would need 7-10 days course in total. (3) Pneumonia: Qualifiers: Laterality: bilateral Lung location: lower lobe of lung Pneumonia type: due to unspecified organism Qualified Code(s): J18.9 - Pneumonia, unspecified organism Code(s): J18.9 - Pneumonia, unspecified organism Status: Acute Assessment and Plan: CT scan of the abdomen showing multifocal bibasilar airspace consolidation with possible areas of cavitation, consistent with pneumonia. She is still recovering from COVID. Discussed with radiology who felt more likely from post-COVID scarring but can not exclude bacterial PNA. Overall felt unlikely since no signifincat pulmonary complaints. CT Chest consistent with subacute COVID pneumonia although other infectious etiologies also possible. Overall, feel that this is just resolving COVID. BCx NGTD. vancomycin was stopped. (4) Leukocytosis: Qualifiers: Leukocytosis type: unspecified Qualified Code(s): D72.829 - Elevated white blood cell count, unspecified Code(s): D72.829 - Elevated white blood cell count, unspecified Status: Acute Assessment and Plan: WBC 14K on admission but has normalized. Probably related to the UTI. Continue to monitor. (5) Pneumonia due to COVID-19 virus: Code(s): U07.1 - COVID-19; J12.82 - Pneumonia due to coronavirus disease 2019 Status: Acute Assessment and Plan: Patient was diagnosed with COVID PNA last admission. She probably has residual scarring by CT but can not exclude 2nd PNA. Remains on room air and relatively asymptomatic from a pulmonary standpoint. As above. (6) CKD (chronic kidney disease) stage 4, GFR 15-29 ml/min: Code(s): N18.4 - Chronic kidney disease, stage 4 (severe) Status: Acute Assessment and Plan: Cr 1.7 on admission and relatively unchanged on repeat. She is at her baseline. Continue to follow. (7) DVT prophylaxis: Code(s): Z29.9 - Encounter for prophylactic measures, unspecified Status: Acute Assessment and Plan: Heparin Subcu (8) Hypertension: Code(s): I10 - Essential (primary) hypertension Status: Acute Assessment and Plan: Her blood pressure has been noticed to be consistently elevated. I will start her on low-dose amlodipine. Continue to monitor hemodynamics closely. Subjective Date/time seen: 10/15/20 12:58 Interval history: 80yo female with asthma, dCHF, CKD and recent hospitalization for COVID PNA who returns to the ED for complaints of back pain. No issues overnight. She denied have any chest pain or shortness of breath. Her flank pain has improved significantly. She
[2020-10-15] MEDS: amLODIPine BESYLATE 5 MG TABLET PO (15:33)
[2020-10-15] MEDS: polyethylene glycoL 3350 17 GM POWD.PACK PO (15:33)
[2020-10-15] MEDS: ERTAPENEM SODIUM 0.5 GM in SODIUM CHLORIDE 0.9% IV 50 ML IVPB (18:30)
[2020-10-15] MEDS: SIMVASTATIN 20 MG TABLET 40 MG PO (18:30)
[2020-10-15] MEDS: MICONAZOLE NITRATE 2% VAGINAL CREAM 45 GM TUBE 1 APPFUL VAGINAL (20:26)
[2020-10-15] MEDS: MELATONIN 5 MG TABLET PO (21:14)
[2020-10-16 00:20] VITALS: PULSE 69; RESP 21; O2SAT 97
[2020-10-16 04:18] VITALS: BP 132/53; PULSE 70; RESP 16; TEMP 36.3; O2SAT 97
[2020-10-16 09:08] VITALS: PULSE 82
[2020-10-16] MEDS: guaiFENesin 12 HR 600 MG TABCR 1200 MG PO ×2 (09:08→20:58)
[2020-10-16] MEDS: CHOLECALCIFEROL 1,000 UNITS TABLET 2000 UNITS PO (09:08)
[2020-10-16] MEDS: SOTALOL HCL 80 MG TABLET PO ×2 (09:08→21:23)
[2020-10-16] MEDS: CYANOCOBALAMIN 500 MCG TABLET 2500 MCG BY MOUTH (09:08)
[2020-10-16] MEDS: HEPARIN SODIUM 5,000 UNITS/ML VIAL 5000 UNITS SUB-Q ×2 (09:08→20:59)
[2020-10-16] MEDS: MAGNESIUM OXIDE 400 MG TABLET PO (09:08)
[2020-10-16] MEDS: lamoTRIgine 25 MG TABLET PO (09:09)
[2020-10-16] MEDS: BUMETANIDE 1 MG TABLET PO (09:09)
[2020-10-16] MEDS: ASPIRIN 81 MG ENTERIC TABLET PO (09:09)
[2020-10-16] MEDS: allopurinoL 100 MG TABLET PO (09:09)
[2020-10-16] MEDS: ISOSORBIDE MONONITRATE 30 MG TAB.ER.24H PO (09:09)
[2020-10-16] MEDS: amLODIPine BESYLATE 5 MG TABLET PO (09:09)
[2020-10-16] MEDS: PANTOPRAZOLE 40 MG TABLET PO (09:11)
[2020-10-16] MEDS: FLUTICASONE/SALMETEROL 115-21 MCG INHALER 1 PUFF 2 PUFF INHALATION ×2 (10:06→21:02)
[2020-10-16 14:00] VITALS: BP 133/59; PULSE 65; RESP 18; TEMP 35.9; O2SAT 98
--- NOTE | 2020-10-16 14:58 | PM.IMPN ---
Progress Note: A&P Assessment and Plan (1) Obstruction of ureteropelvic junction (UPJ) due to stone: Code(s): N20.1 - Calculus of ureter Status: Acute Assessment and Plan: CT scan showing right proximal ureteral and renal stones with mild hydronephrosis with concern for a right UPJ stone. This could explain her significant CVA tenderness and flank pain. Urology consulted and patient underwent cystoscopy, right retrograde pyelography, right ureteroscopy and right ureteral stent placement. She toterated the procedure well. She is still passing small stones. Her pain is much better. Outpatient follow-up with urology at the time of discharge to remove ureteric stent as an outpatient. (2) Urinary tract infection: Qualifiers: Hematuria presence: with hematuria Urinary tract infection type: site unspecified Qualified Code(s): N39.0 - Urinary tract infection, site not specified; R31.9 - Hematuria, unspecified Code(s): N39.0 - Urinary tract infection, site not specified Status: Acute Assessment and Plan: UA noted. UCx growing ESBL EColi. BCx NGTD. Continue Ertapenem that was started on 10/11. Will need to remain hospitalized since can not put in a midline due to her CKD. She would need 7-10 days course in total. (3) Pneumonia: Qualifiers: Laterality: bilateral Lung location: lower lobe of lung Pneumonia type: due to unspecified organism Qualified Code(s): J18.9 - Pneumonia, unspecified organism Code(s): J18.9 - Pneumonia, unspecified organism Status: Acute Assessment and Plan: CT scan of the abdomen showing multifocal bibasilar airspace consolidation with possible areas of cavitation, consistent with pneumonia. She is still recovering from COVID. Discussed with radiology who felt more likely from post-COVID scarring but can not exclude bacterial PNA. Overall felt unlikely 2nd PNA since no significant pulmonary complaints. CT Chest consistent with subacute COVID pneumonia although other infectious etiologies also possible. Overall, feel that this is just resolving COVID. BCx NGTD. Was on vancomycin but this was stopped. (4) Leukocytosis: Qualifiers: Leukocytosis type: unspecified Qualified Code(s): D72.829 - Elevated white blood cell count, unspecified Code(s): D72.829 - Elevated white blood cell count, unspecified Status: Acute Assessment and Plan: WBC 14K on admission but has normalized. Probably related to the UTI. Continue to monitor. (5) Pneumonia due to COVID-19 virus: Code(s): U07.1 - COVID-19; J12.82 - Pneumonia due to coronavirus disease 2018 Status: Acute Assessment and Plan: Patient was diagnosed with COVID PNA last admission. She probably has residual scarring by CT but can not exclude 2nd PNA. Remains on room air and relatively asymptomatic from a pulmonary standpoint. As above. (6) CKD (chronic kidney disease) stage 4, GFR 15-29 ml/min: Code(s): N18.4 - Chronic kidney disease, stage 4 (severe) Status: Acute Assessment and Plan: Cr 1.7 on admission and relatively unchanged on repeat. She is at her baseline. Continue to follow. (7) DVT prophylaxis: Code(s): Z29.9 - Encounter for prophylactic measures, unspecified Status: Acute Assessment and Plan: Heparin Subcu. Plt count 104K a few days ago felt related to the infection. Repeat plt count (8) Hypertension: Code(s): I10 - Essential (primary) hypertension Status: Acute Assessment and Plan: Her blood pressure noted to be intermittently elevated so Norvasc started. BP reviewed on 10/16. New studies showing that it can be detrimental to over correct blood pressure in the hospital. Contineu to monitor BP closely. Subjective Date/time seen: 10/16/20 14:59 Interval history: 80yo female with asthma, dCHF, CKD and recent hospitalization for COVID PNA w
[2020-10-16 16:12] LABS: Hematocrit 31.9 % (37.0-47.0); Hemoglobin 10.1 g/dL (12.0-15.0); Mean Corpuscular HGB Conc 31.7 g/dl (32-36); Mean Corpuscular Hemoglobin 30.9 pg (26-34); Mean Corpuscular Volume 97.6 fl (80-100); Mean Platelet Volume 11.3 fl (7.4-10.4); Platelet Count Result 115 k/mm3 (150-375); Red Blood Count 3.27 M/mm3 (4.2-5.4); Red Cell Distribution Width 14.7 % (11.5-14.5); White Blood Count 6.7 K/mm3 (4.5-10.0)
[2020-10-16] MEDS: ERTAPENEM SODIUM 0.5 GM in SODIUM CHLORIDE 0.9% IV 50 ML IVPB (17:55)
[2020-10-16] MEDS: SIMVASTATIN 20 MG TABLET 40 MG PO (17:55)
[2020-10-16] MEDS: MELATONIN 5 MG TABLET PO (20:58)
[2020-10-16] MEDS: MICONAZOLE NITRATE 2% VAGINAL CREAM 45 GM TUBE 1 APPFUL VAGINAL (20:58)
[2020-10-16 21:17] VITALS: BP 151/80; PULSE 73; RESP 18; TEMP 36.1; O2SAT 97
[2020-10-16 21:23] VITALS: PULSE 73
[2020-10-17 00:50] VITALS: PULSE 68; RESP 18; O2SAT 96
[2020-10-17 04:22] VITALS: BP 149/76; PULSE 68; RESP 17; TEMP 36.6; O2SAT 96
[2020-10-17 04:27] VITALS: PULSE 63; RESP 15; O2SAT 96
[2020-10-17] MEDS: BUMETANIDE 1 MG TABLET PO (08:02)
[2020-10-17] MEDS: CHOLECALCIFEROL 1,000 UNITS TABLET 2000 UNITS PO (08:02)
[2020-10-17] MEDS: MAGNESIUM OXIDE 400 MG TABLET PO (08:03)
[2020-10-17] MEDS: allopurinoL 100 MG TABLET PO (08:03)
[2020-10-17] MEDS: amLODIPine BESYLATE 5 MG TABLET PO (08:03)
[2020-10-17] MEDS: PANTOPRAZOLE 40 MG TABLET PO (08:03)
[2020-10-17] MEDS: ASPIRIN 81 MG ENTERIC TABLET PO (08:03)
[2020-10-17] MEDS: guaiFENesin 12 HR 600 MG TABCR 1200 MG PO (08:03)
[2020-10-17 08:04] VITALS: PULSE 79
[2020-10-17] MEDS: ISOSORBIDE MONONITRATE 30 MG TAB.ER.24H PO (08:04)
[2020-10-17] MEDS: SOTALOL HCL 80 MG TABLET PO (08:04)
[2020-10-17] MEDS: lamoTRIgine 25 MG TABLET PO (08:04)
[2020-10-17] MEDS: HEPARIN SODIUM 5,000 UNITS/ML VIAL 5000 UNITS SUB-Q (08:05)
[2020-10-17] MEDS: CYANOCOBALAMIN 500 MCG TABLET 2500 MCG BY MOUTH (08:05)
[2020-10-17 08:11] VITALS: RESP 16; O2SAT 96
[2020-10-17] MEDS: FLUTICASONE/SALMETEROL 115-21 MCG INHALER 1 PUFF 2 PUFF INHALATION (10:00)
--- NOTE | 2020-10-17 12:16 | PM.DS ---
DS: Admitting Diagnosis Admitting Diagnosis Right flank pain DS: Discharge Diagnosis Discharge Diagnosis (1) Obstruction of ureteropelvic junction (UPJ) due to stone: Code(s): N20.1 - Calculus of ureter Status: Acute (2) Urinary tract infection: Qualifiers: Hematuria presence: with hematuria Urinary tract infection type: site unspecified Qualified Code(s): N39.0 - Urinary tract infection, site not specified; R31.9 - Hematuria, unspecified Code(s): N39.0 - Urinary tract infection, site not specified Status: Acute (3) Pneumonia: Qualifiers: Laterality: bilateral Lung location: lower lobe of lung Pneumonia type: due to unspecified organism Qualified Code(s): J18.9 - Pneumonia, unspecified organism Code(s): J18.9 - Pneumonia, unspecified organism Status: Acute (4) Leukocytosis: Qualifiers: Leukocytosis type: unspecified Qualified Code(s): D72.829 - Elevated white blood cell count, unspecified Code(s): D72.829 - Elevated white blood cell count, unspecified Status: Acute (5) Pneumonia due to COVID-19 virus: Code(s): U07.1 - COVID-19; J12.82 - Pneumonia due to coronavirus disease 2018 Status: Acute (6) CKD (chronic kidney disease) stage 4, GFR 15-29 ml/min: Code(s): N18.4 - Chronic kidney disease, stage 4 (severe) Status: Acute (7) Hypertension: Code(s): I10 - Essential (primary) hypertension Status: Acute DS: Summary Hospital Course Reason for hospitalization: 80yo female with asthma, dCHF, CKD and recent hospitalization for COVID PNA who returns to the ED for complaints of right flank/back pain. Please see H&P for details Hospital Course: Patient was recently hospitalization for COVID PNA who returned to the ED with complaints of right flank/back pain. CT scan showing right proximal ureteral and renal stones with mild hydronephrosis with concern for a right UPJ stone. This was the etiology of her significant CVA tenderness and flank pain. Urology consulted and patient underwent cystoscopy, right retrograde pyelography, right ureteroscopy and right ureteral stent placement 10/12/20. She tolerated the procedure well. She began to pass small stones caught with straining of urine. Her pain resolved. UA noted. UCx grew ESBL EColi. BCx negative. WBC 14K on admission but has normalized. Abx changed to Ertapenem and she completed a 7 day course. She needed to remain hospitalized since we could not put in a midline due to her CKD. CT scan of the abdomen also showing multifocal bibasilar airspace consolidation with possible areas of cavitation, consistent with pneumonia. She is still recovering from COVID. Discussed with radiology who felt more likely from post-COVID scarring but can not exclude bacterial PNA. Overall felt unlikely she had 2nd PNA since no significant pulmonary complaints. CT Chest consistent with subacute COVID pneumonia although other infectious etiologies also possible. Overall, feel that this is just resolving COVID. Was on vancomycin but this was stopped. Her Cr was 1.7 on admission and relatively unchanged on repeat felt to be at her baseline. Plt count normal on admission but dropped to 104K felt related to the infection. Repeat plt count showed improvement. Her blood pressure noted to be elevated at times so Norvasc started. New studies showing that it can be detrimental to over correct blood pressure in the hospital so Norvasc was not continued. Patient to monitor BP at home with further treatment by primary care provider if needed. Patient feels well. No complaints. She is eager for discharge. She is stable for discharge Status at Discharge Cognitive/behavioral status at discharge: stable Time Spent with Patient Time attestation: Total time spent providing and/or coordinating discharge services:38 minutes Time spent: Greater than 30 minutes Exam Narrative: AF 98.0 14
[2020-10-17] MEDS: ERTAPENEM SODIUM 0.5 GM in SODIUM CHLORIDE 0.9% IV 50 ML IVPB (14:03)
== END 2020-10-17 15:05 | disposition home or self-care (01) | DRG 659 ==
LOC: ANHED 12:02 → ANH3MED 21:40 → ANH3MEDSUR 10-20 10:15
PROVIDERS: Internal Medicine Critical Care Medicine; Urology; Admitting Provider Internal Medicine; Emergency Provider Emergency Medicine; PCP Internal Medicine; Visit Provider Internal Medicine
PROC: 0T768DZ Dilation of Right Ureter with Intraluminal Device, Via Natural or Artificial Opening Endoscopic (ICD-10-PCS; CPT 52352; principal; 2020-10-12 14:15)
DX: N13.6 Pyonephrosis (principal); J18.9 Pneumonia, unspecified organism; B94.8 Sequelae of other specified infectious and parasitic diseases; N20.1 Calculus of ureter; C92.11 Chronic myeloid leukemia, BCR/ABL-positive, in remission; I13.0 Hypertensive heart and chronic kidney disease with heart failure and stage 1 through stage 4 chronic kidney disease, or unspecified chronic kidney disease; I50.32 Chronic diastolic (congestive) heart failure; Z16.12 Extended spectrum beta lactamase (ESBL) resistance; J44.0 Chronic obstructive pulmonary disease with (acute) lower respiratory infection; N18.4 Chronic kidney disease, stage 4 (severe); R31.9 Hematuria, unspecified; B96.20 Unspecified Escherichia coli [E. coli] as the cause of diseases classified elsewhere; Z66 Do not resuscitate; I12.9 Hypertensive chronic kidney disease with stage 1 through stage 4 chronic kidney disease, or unspecified chronic kidney disease; D63.8 Anemia in other chronic diseases classified elsewhere; F41.8 Other specified anxiety disorders; K21.9 Gastro-esophageal reflux disease without esophagitis; G47.33 Obstructive sleep apnea (adult) (pediatric); M81.0 Age-related osteoporosis without current pathological fracture; G62.9 Polyneuropathy, unspecified; Z79.899 Other long term (current) drug therapy; Z95.0 Presence of cardiac pacemaker; Z98.42 Cataract extraction status, left eye; Z98.41 Cataract extraction status, right eye; Z96.1 Presence of intraocular lens
CPT/HCPCS: 36415; 36600; 71045; 71250; 74018; 74176; 74420; 80048; 80053; 80069; 80202; 81001; 82805; 83735; 85025; 85027; 85055; 87040; 87077; 87086; 87088; 87186; 94640; 96361; 96365; 96366; 96367; 96372; 96375; 97110; 97116; 97161; 97165; 97530; 99285; A9270; C1751; C1758; C1769; C2617; G0378; J0696; J1335; J1644; J1956; J2270; J2370; J2405; J2704; J3010; J3370; J7030; J7120; Q9966

== ENCOUNTER 2020-10-27 11:32 | Outpatient (CLI) | payer MEDICARE, MEDICAID, SELFPAY ==
--- NOTE | ~2020-10-27 | XR_ITS ---
EXAMINATION: XR abdomen/kub 1V INDICATION: Calculus of ureter TECHNIQUE: Supine views of the abdomen were obtained on 2 radiographs. COMPARISON: 10/12/2019 FINDINGS: A right internal ureteral stent is in expected position. There is a questionable 4 mm stone of the right kidney lower pole. No stones are identified along the expected course of the internal u reteral stent. The bowel gas pattern is normal. There is severe lumbar spondylosis. The visualized uzma ng bases are clear. IMPRESSION: 1. Right internal ureteral stent in expected position. Possible 4 mm stone of the right kidney lower pole. Reviewed, dictated and finalized at location B. IMPRESSION: 1. Right internal ureteral stent in expected position. Possible 4 mm stone of t he right kidney lower pole.
== END 2020-10-27 11:33 | disposition home or self-care (01) ==
PROVIDERS: PCP Internal Medicine; Visit Provider Nurse Practitioner Adult Health
DX: N20.1 Calculus of ureter (principal)
CPT/HCPCS: 74018

== ENCOUNTER 2020-11-29 11:01 | Outpatient (CLI) | payer MEDICARE, MEDICAID, SELFPAY ==
--- NOTE | ~2020-11-29 | MM_ITS ---
EXAMINATION: MM screening donis BI w ledy HISTORY: Screening TECHNIQUE: Craniocaudal and mediolateral oblique 3-D tomosynthesis images were obtained and synthetic 2-D images were generated. CAD analysis was submitted and interpreted. COMPARISON: 05/23/2014 BREAST PARENCHYMAL COMPOSITION: There are scattered areas of fibroglandular density. FINDINGS: There is no evidence of suspicious mass, calcification, or architectural distortion to sugg est malignancy in either breast. There has been no suspicious interval change. IMPRESSION: 1. No mammographic evidence of malignancy. 2. Recommend routine screening mammography in one year. BI-RADS Category 1: Negative Reviewed, dictated and finalized at location A.
[2020-11-29 16:03] LABS: Basophils Absolute Auto 0.1 K/mm3 (0.0-0.1); Basophils Percent Auto 1.2 % (0.2-1.2); Eosinophils Absolute Auto 0.2 K/mm3 (0-0.3); Eosinophils Percent Auto 4.3 % (0-4.4); Hematocrit 35.6 % (37.0-47.0); Hemoglobin 11.4 g/dL (12.0-15.0); Immature Granulocyte Absolute 0.01 K/mm3 (0.00-0.031); Immature Granulocyte Percent A 0.2 % (0-0.5); Lymphocytes Absolute Auto 1.23 K/mm3 (0.9-3.2); Mean Corpuscular Hemoglobin 31.6 pg (26-34); Mean Corpuscular Volume 98.6 fl (80-100); Mean Platelet Volume 11.2 fl (7.4-10.4); Monocytes Absolute Auto 0.5 K/mm3 (0.1-0.6); Monocytes Percent Auto 9.4 % (2.6-8.5); Neutrophils Absolute Auto 3.1 K/mm3 (1.3-6.7); Neutrophils Percent Auto 60.9 % (45.5-73.1); Platelet Count Result 210 k/mm3 (150-375); Red Blood Count 3.61 M/mm3 (4.2-5.4); White Blood Count 5.1 K/mm3 (4.5-10.0)
[2020-11-29 16:23] LABS: Alanine Aminotransferase 18 U/L (4-35); Albumin Level 4.1 g/dL (3.5-5.1); Alkaline Phosphatase 87 U/L (38-126); Anion Gap 11 mmol/L (8-16); Aspartate Amino Transferase 24 U/L (14-36); Bilirubin,Total 0.4 mg/dL (0.2-1.3); Blood Urea Nitrogen 28 mg/dL (7-17); Calcium 9.5 mg/dL (8.4-10.2); Carbon Dioxide 26 mmol/L (22-30); Chloride 101 mmol/L (98-107); Estimated Glomerular Filt Rate 29; Glucose 87 mg/dL (65-110); Potassium 4.2 mmol/L (3.4-5.0); Sodium 138 mmol/L (137-145)
[2020-12-04 12:26] LABS: BCR/abl Prior Result See Report
[2020-12-04 13:14] LABS: BCR/abl P210 Detected
[2020-12-04 13:15] LABS: BCR/abl P210 Chg YES
== END 2020-11-29 11:02 | disposition home or self-care (01) ==
PROVIDERS: PCP Internal Medicine; Visit Provider Nurse Practitioner
DX: Z12.31 Encounter for screening mammogram for malignant neoplasm of breast (principal); C92.10 Chronic myeloid leukemia, BCR/ABL-positive, not having achieved remission
CPT/HCPCS: 36415; 77063; 77067; 80053; 81207; 85025

== ENCOUNTER 2021-05-22 08:56 | Outpatient (CLI) | payer MEDICARE, MEDICAID, SELFPAY ==
[2021-05-22 10:14] LABS: Alanine Aminotransferase 12 U/L (4-35); Alkaline Phosphatase 98 U/L (38-126); Anion Gap 10 mmol/L (8-16); Aspartate Amino Transferase 22 U/L (14-36); Bilirubin,Total 0.4 mg/dL (0.2-1.3); Blood Urea Nitrogen 28 mg/dL (7-17); Carbon Dioxide 24 mmol/L (22-30); Chloride 105 mmol/L (98-107); Cholesterol 133 mg/dL (0-200); Estimated Glomerular Filt Rate 29; Glucose 92 mg/dL (65-110); HDL Direct 34 mg/dL; Potassium 4.2 mmol/L (3.4-5.0); Sodium 139 mmol/L (137-145); Triglycerides 149 mg/dL (<150)
[2021-05-22 10:24] LABS: LDL Cholesterol Direct 65 mg/dL
== END 2021-05-22 08:57 | disposition home or self-care (01) ==
LOC: ANHLAB 08:58
PROVIDERS: PCP Internal Medicine; Visit Provider Nurse Practitioner
DX: E78.5 Hyperlipidemia, unspecified (principal)
CPT/HCPCS: 36415; 80053; 80061

== ENCOUNTER 2021-06-02 10:39 | Outpatient (CLI) | payer MEDICARE, MEDICAID, SELFPAY ==
--- NOTE | ~2021-06-02 | DEXA_ITS ---
Bone Density Report Name: XIMENA SEXTON Age: 80 Sex: Female Ethnicity: White Date of : 1940 Indication: postmenopausal; prior fracture; cancer; asthma or emphysema; end stage renal disease; hysterectomy; rheumatoid arthritis; Referring Provider: TRICE MASON Study: Bone densitometry was performed. Exam Date: June 02, 2021 Accession number: [id number] Bone Density: Region BMD T-score Z-score Classification AP Spine (L1, L3, L4) 0.997 -0.5 2.2 Normal Femoral Neck (Right) 0.628 -2.0 0.3 Osteopenia Total Hip (Right) 0.670 -2.2 -0.2 Osteopenia World Health Organization criteria for BMD impression classify patients as: Normal (T-score at or above -1.0), Osteopenia (T-score between -1.0 and -2.5), or Osteoporosis (T-score at or below -2.5). 10-year Fracture Risk(1): Major Osteoporotic Fracture 25% Hip Fracture 6.7% Reported Risk Factors: [place] (), Neck BMD=0.628, BMI=38.4, previous fracture, rheumatoid arthritis (1) FRAX(R) Version 3.08. Fracture probability calculated for an untreated patient. Fracture probability may be lower if the patient has received treatment. Clinical Information Provided by Patient: Has had a low trauma fracture Has rheumatoid arthritis Has the following medical conditions: Asthma or Emphysema, Cancer, End stage renal disease, Hysterectomy Menopause Age: 46 No regular weight bearing exercise Drinks caffeinated beverages Onset of menses at age 14 Number of children 6 Impression: The patient has low bone mass, based on the Right Total Hip T-score. The patient has an estimated ten-year risk of hip fracture of 6.7% and an estimated ten-year risk of major fracture of 25%, based on the WHO FRAX algorithm. The patient has risk factors, including: previous fracture. Discussion: BONE DENSITY IS LOW AT ONE OR MORE SKELETAL SITES. THE PATIENT'S BMD AND CLINICAL RISK FACTORS CONTRIBUTE TO THIS PATIENT'S HIGH RISK OF FRACTURE. This patient's lowest T-score is low at one or more skeletal sites. It meets the World Health Organization's (WHO) criteria for ?low bone mass? (T-score between -1.0 and -2.5). The patient's 10-year risk of hip fracture and 10 year risk of a major osteoporotic fracture as calculated by FRAX exceeds the threshold where pharmacological therapy is recommended by the National Osteoporosis Foundation (NOF). However, all treatment decisions require clinical judgment and consideration of individual patient factors, including patient preferences, comorbidities, previous drug use, risk factors not captured in the FRAX model (e.g., frailty, falls, vitamin D deficiency, increased bone turnover, interval significant decline in bone density) and possible under or overestimation of fracture risk by FRAX. The patient should follow a healthful lifestyle (good nutrition with adequate calcium
== END 2021-06-02 10:40 | disposition home or self-care (01) ==
PROVIDERS: PCP Internal Medicine; Visit Provider Internal Medicine
DX: Z78.0 Asymptomatic menopausal state (principal); M85.851 Other specified disorders of bone density and structure, right thigh
CPT/HCPCS: 36415; 77080; 80053; 81207; 85025

== ENCOUNTER 2021-06-02 11:14 | Outpatient (CLI) | payer MEDICARE, MEDICAID, SELFPAY ==
[2021-06-02 11:48] LABS: Basophils Percent Auto 0.6 % (0.2-1.2); Eosinophils Absolute Auto 0.2 K/mm3 (0-0.3); Eosinophils Percent Auto 3.8 % (0-4.4); Hematocrit 35.4 % (37.0-47.0); Hemoglobin 11.2 g/dL (12.0-15.0); Immature Granulocyte Absolute 0.01 K/mm3 (0.00-0.031); Immature Granulocyte Percent A 0.2 % (0-0.5); Lymphocytes Absolute Auto 1.42 K/mm3 (0.9-3.2); Lymphocytes Percent Auto 22.7 % (18.3-44.2); Mean Corpuscular HGB Conc 31.6 g/dl (32-36); Mean Corpuscular Volume 98.1 fl (80-100); Mean Platelet Volume 10.4 fl (7.4-10.4); Monocytes Absolute Auto 0.5 K/mm3 (0.1-0.6); Monocytes Percent Auto 8.6 % (2.6-8.5); Neutrophils Percent Auto 64.1 % (45.5-73.1); Platelet Count Result 184 k/mm3 (150-375); Red Blood Count 3.61 M/mm3 (4.2-5.4); White Blood Count 6.3 K/mm3 (4.5-10.0)
[2021-06-02 11:59] LABS: Alanine Aminotransferase 14 U/L (4-35); Albumin Level 4.2 g/dL (3.5-5.1); Alkaline Phosphatase 102 U/L (38-126); Anion Gap 9 mmol/L (8-16); Aspartate Amino Transferase 23 U/L (14-36); Bilirubin,Total 0.3 mg/dL (0.2-1.3); Blood Urea Nitrogen 34 mg/dL (7-17); Calcium 8.9 mg/dL (8.4-10.2); Carbon Dioxide 24 mmol/L (22-30); Chloride 105 mmol/L (98-107); Estimated Glomerular Filt Rate 31; Glucose 92 mg/dL (65-110); Potassium 4.1 mmol/L (3.4-5.0); Sodium 138 mmol/L (137-145)
[2021-06-06 14:43] LABS: BCR/abl P210 Detected; BCR/abl Prior Result See Report; BCR/abl1/abl1% (IS) 0.046 %
[2021-06-06 14:44] LABS: BCR/abl P210 Chg YES
== END 2021-06-02 11:15 | disposition home or self-care (01) ==
LOC: ANHLAB 11:19
PROVIDERS: PCP Internal Medicine; Visit Provider Internal Medicine Medical Oncology
DX: C92.10 Chronic myeloid leukemia, BCR/ABL-positive, not having achieved remission (principal)
CPT/HCPCS: 36415; 80053; 81207; 85025

== ENCOUNTER 2021-11-26 09:36 | Outpatient (CLI) | payer MEDICARE, MEDICAID, SELFPAY ==
[2021-11-26 10:17] LABS: Basophils Absolute Auto 0.1 K/mm3 (0.0-0.1); Basophils Percent Auto 0.8 % (0.2-1.2); Eosinophils Absolute Auto 0.2 K/mm3 (0-0.3); Eosinophils Percent Auto 3.5 % (0-4.4); Hematocrit 33.6 % (37.0-47.0); Hemoglobin 10.9 g/dL (12.0-15.0); Immature Granulocyte Absolute 0.02 K/mm3 (0.00-0.031); Immature Granulocyte Percent A 0.3 % (0-0.5); Lymphocytes Absolute Auto 1.52 K/mm3 (0.9-3.2); Lymphocytes Percent Auto 24.2 % (18.3-44.2); Mean Corpuscular HGB Conc 32.4 g/dl (32-36); Mean Corpuscular Volume 98.5 fl (80-100); Mean Platelet Volume 10.7 fl (7.4-10.4); Monocytes Absolute Auto 0.5 K/mm3 (0.1-0.6); Monocytes Percent Auto 7.5 % (2.6-8.5); Neutrophils Percent Auto 63.7 % (45.5-73.1); Platelet Count Result 173 k/mm3 (150-375); Red Blood Count 3.41 M/mm3 (4.2-5.4); Red Cell Distribution Width 13.8 % (11.5-14.5); White Blood Count 6.3 K/mm3 (4.5-10.0)
[2021-11-26 10:31] LABS: Alanine Aminotransferase 19 U/L (6-35); Alkaline Phosphatase 100 U/L (38-126); Anion Gap 13 mmol/L (8-16); Aspartate Amino Transferase 21 U/L (14-36); Bilirubin,Total 0.4 mg/dL (0.2-1.3); Blood Urea Nitrogen 37 mg/dL (7-17); Calcium 9.8 mg/dL (8.4-10.2); Carbon Dioxide 20 mmol/L (22-30); Chloride 102 mmol/L (98-107); Cholesterol 130 mg/dL (0-200); Estimated Glomerular Filt Rate 27; Glucose 100 mg/dL (65-110); HDL Direct 36 mg/dL; Potassium 4.4 mmol/L (3.4-5.0); Sodium 135 mmol/L (137-145); Triglycerides 122 mg/dL (<150)
[2021-11-26 10:42] LABS: LDL Cholesterol Direct 63 mg/dL
[2021-11-29 14:14] LABS: BCR/abl Prior Result See Report; BCR/abl1/abl1% (IS) 0.166 %
[2021-11-29 15:01] LABS: BCR/abl P210 Detected
[2021-11-29 15:02] LABS: BCR/abl P210 Chg YES
== END 2021-11-26 09:37 | disposition home or self-care (01) ==
PROVIDERS: PCP Internal Medicine; Referring Provider Internal Medicine Medical Oncology; Visit Provider Internal Medicine
DX: E78.5 Hyperlipidemia, unspecified (principal); I10 Essential (primary) hypertension; Z79.899 Other long term (current) drug therapy
CPT/HCPCS: 36415; 80053; 80061; 81207; 85025

== ENCOUNTER 2021-12-07 12:56 | Outpatient (CLI) | payer MEDICARE, MEDICAID, SELFPAY ==
--- NOTE | ~2021-12-07 | XR_ITS ---
XR ankle LT 2V DATE: 12/07/2021 13:49 INDICATION: Left ankle stiffness. No injury. TECHNIQUE: 2 views COMPARISON: None FINDINGS: There is osteopenia. There is joint space narrowing at the tibiotalar joint. Plantar and posterior calcaneal enthesopathy and distal Achilles tendon calcification. Pes planus. No fracture or dislocation of the ankle or disruption of the ankle mortise is detected. No periosteal reaction or bone destruction. IMPRESSION: Tibiotalar joint narrowing Osteopenia Calcaneal enthesopathy, distal Achilles tendon calcification Pes planus Reviewed, dictated and finalized at location B.
[2021-12-07 13:50] LABS: Appearance Urine Slightly Cloudy (Clear); Bilirubin Urine Negative (Negative); Blood Urine 1+ (Negative); Color Urine Yellow (Yellow); Glucose Urine UA Negative (Negative); Ketones Urine Negative (Negative); Leukocyte Esterase Ur 3+ LEU/UL (Negative); Nitrate Urine Negative (Negative); Protein Urine Negative (Negative); Urobilinogen Urine 0.2 mg/dL (<2.0)
[2021-12-07 13:55] LABS: Bacteria Urine Trace /hpf; Mucus Urine Rare /lpf; RBC Urine 21-50 /hpf (0-2); WBC Urine >75 /hpf
[2021-12-07 13:56] LABS: Add Urine Microscopic? YES
== END 2021-12-07 12:57 | disposition home or self-care (01) ==
PROVIDERS: PCP Internal Medicine; Visit Provider Internal Medicine
DX: R10.9 Unspecified abdominal pain (principal); M25.673 Stiffness of unspecified ankle, not elsewhere classified; M85.872 Other specified disorders of bone density and structure, left ankle and foot; M77.32 Calcaneal spur, left foot; M21.42 Flat foot [pes planus] (acquired), left foot
CPT/HCPCS: 73600; 81001; 87077; 87086; 87186

== ENCOUNTER 2021-12-17 11:25 | Outpatient (CLI) | payer MEDICARE, MEDICAID, SELFPAY ==
[2021-12-17 12:33] LABS: Appearance Urine Clear (Clear); Bilirubin Urine Negative (Negative); Blood Urine Trace-lysed (Negative); Color Urine Yellow (Yellow); Glucose Urine UA Negative (Negative); Ketones Urine Negative (Negative); Leukocyte Esterase Ur 3+ LEU/UL (Negative); Nitrate Urine Negative (Negative); Protein Urine Negative (Negative); Urobilinogen Urine 0.2 mg/dL (<2.0)
[2021-12-17 12:36] LABS: Hematocrit 32.3 % (37.0-47.0); Hemoglobin 10.6 g/dL (12.0-15.0); Mean Corpuscular HGB Conc 32.8 g/dl (32-36); Mean Corpuscular Hemoglobin 31.8 pg (26-34); Mean Platelet Volume 10.5 fl (7.4-10.4); Platelet Count Result 193 k/mm3 (150-375); Red Blood Count 3.33 M/mm3 (4.2-5.4); Red Cell Distribution Width 14.1 % (11.5-14.5); White Blood Count 6.4 K/mm3 (4.5-10.0)
[2021-12-17 12:41] LABS: Bacteria Urine Trace /hpf; Mucus Urine Rare /lpf; Squamous Epithelial Cell Urine Rare /hpf (Few); WBC Urine 21-30 /hpf
[2021-12-17 12:42] LABS: Add Urine Microscopic? YES
[2021-12-17 12:49] LABS: Albumin Level 4.1 g/dL (3.5-5.1); Anion Gap 15 mmol/L (8-16); Blood Urea Nitrogen 36 mg/dL (7-17); Carbon Dioxide 23 mmol/L (22-30); Chloride 100 mmol/L (98-107); Estimated Glomerular Filt Rate 25; Glucose 100 mg/dL (65-110); Phosphorus 3.8 mg/dL (2.5-4.5); Sodium 138 mmol/L (137-145); Uric Acid 6.4 mg/dL (2.5-7.5)
[2021-12-17 12:58] LABS: Complement C3 121 mg/dL (88-165)
[2021-12-17 13:04] LABS: Parathyroid Intact 213.4 pg/mL (7.5-53.5)
[2021-12-17 13:27] LABS: Erythrocyte Sedimentation Rate 104 mm/hr (0-20)
[2021-12-20 12:56] LABS: Kappa\\Lambda Light Chains 1.56 (0.26-1.65); Lambda Light Chain 46.1 mg/L (5.7-26.3)
[2021-12-21 05:03] LABS: Complement Total CH50 >60 U/mL (31-60)
== END 2021-12-17 11:26 | disposition home or self-care (01) ==
LOC: ANHLAB 11:28
PROVIDERS: PCP Internal Medicine; Visit Provider Internal Medicine Nephrology
DX: N18.32 Chronic kidney disease, stage 3b (principal); N20.0 Calculus of kidney
CPT/HCPCS: 36415; 80069; 81001; 83883; 83970; 84550; 85027; 85652; 86038; 86160; 86162; 86334; 87086; 87088

== ENCOUNTER → 2021-12-21 14:48 | Outpatient (CLI) | payer MEDICARE, MEDICAID, SELFPAY ==
--- NOTE | ~2021-12-21 | US_ITS ---
US renal BI 12/21/2021 15:21 Procedure: Realtime transabdominal ultrasound of the kidneys and bladder. Indication: Chronic kidney disease Comparison: Ultrasound dated 02/15/2013 Findings: Renal echotexture is normal bilaterally without contour deforming mass or renal calculus. T here is moderate right hydronephrosis. There is a right renal cyst measuring 3.8 x 3.7 x 2.8 cm. Ther e is right renal cortical thinning. The right kidney measures 11.7 cm and left kidney measures 12.2 c m. Bladder within normal limits. Impression: 1: Moderate right hydronephrosis. Right renal cortical thinning. 2: Right renal cyst measuring 3.8 cm. Reviewed, dictated and finalized at location A. Impression: 1: Moderate right hydronephrosis. Right renal cortical thinning. 2: Right renal cyst measuring 3.8 cm.
== END ==
PROVIDERS: PCP Internal Medicine; Visit Provider Internal Medicine Nephrology
DX: N18.32 Chronic kidney disease, stage 3b (principal); N28.1 Cyst of kidney, acquired; N20.0 Calculus of kidney
CPT/HCPCS: 76775

== ENCOUNTER 2021-12-24 10:40 | Outpatient (CLI) | payer MEDICARE, MEDICAID, SELFPAY ==
[2021-12-29 00:39] LABS: Albumin 58 %; Measured Kappa Chains <1.00 mg/dL (<2.00); Measured Lambda Chains <1.00 mg/dL (<2.00); Pro/Creat Ratio 625 mg/g creat (<150)
[2022-01-02 15:15] LABS: Protein,total, 24 Hr Ur 340 mg/24h
== END 2021-12-24 10:41 | disposition home or self-care (01) ==
LOC: ANHLAB 10:44
PROVIDERS: PCP Internal Medicine; Visit Provider Internal Medicine Nephrology
DX: N18.32 Chronic kidney disease, stage 3b (principal); N20.0 Calculus of kidney
CPT/HCPCS: 86335

== ENCOUNTER 2021-12-25 11:49 | Outpatient (CLI) | payer MEDICARE, MEDICAID, SELFPAY | END 2021-12-25 11:50 | disposition home or self-care (01) | PROVIDERS: PCP Internal Medicine; Visit Provider Internal Medicine Nephrology | DX: N39.0 Urinary tract infection, site not specified (principal) | CPT/HCPCS: 87086 ==

== ENCOUNTER 2022-01-07 10:31 | Outpatient (CLI) | payer MEDICARE, MEDICAID, SELFPAY ==
[2022-01-07 11:29] LABS: Basophils Percent Auto 0.6 % (0.2-1.2); Eosinophils Absolute Auto 0.2 K/mm3 (0-0.3); Eosinophils Percent Auto 3.6 % (0-4.4); Hematocrit 34.1 % (37.0-47.0); Hemoglobin 10.9 g/dL (12.0-15.0); Immature Granulocyte Absolute 0.03 K/mm3 (0.00-0.031); Immature Granulocyte Percent A 0.5 % (0-0.5); Lymphocytes Absolute Auto 1.46 K/mm3 (0.9-3.2); Lymphocytes Percent Auto 22.7 % (18.3-44.2); Mean Corpuscular Hemoglobin 32.1 pg (26-34); Mean Corpuscular Volume 100.3 fl (80-100); Mean Platelet Volume 10.3 fl (7.4-10.4); Monocytes Absolute Auto 0.4 K/mm3 (0.1-0.6); Monocytes Percent Auto 6.1 % (2.6-8.5); Neutrophils Absolute Auto 4.3 K/mm3 (1.3-6.7); Neutrophils Percent Auto 66.5 % (45.5-73.1); Platelet Count Result 188 k/mm3 (150-375); Red Cell Distribution Width 14.1 % (11.5-14.5); White Blood Count 6.4 K/mm3 (4.5-10.0)
[2022-01-07 11:46] LABS: Alanine Aminotransferase 19 U/L (6-35); Albumin Level 3.9 g/dL (3.5-5.1); Alkaline Phosphatase 101 U/L (38-126); Anion Gap 10 mmol/L (8-16); Aspartate Amino Transferase 21 U/L (14-36); Bilirubin,Total 0.4 mg/dL (0.2-1.3); Blood Urea Nitrogen 29 mg/dL (7-17); Calcium 8.9 mg/dL (8.4-10.2); Carbon Dioxide 26 mmol/L (22-30); Chloride 98 mmol/L (98-107); Estimated Glomerular Filt Rate 27; Glucose 106 mg/dL (65-110); Potassium 4.2 mmol/L (3.4-5.0); Sodium 134 mmol/L (137-145)
[2022-01-10 18:03] LABS: BCR/abl P210 Detected; BCR/abl Prior Result See Report; BCR/abl1/abl1% (IS) 0.045 %
[2022-01-10 18:04] LABS: BCR/abl P210 Chg YES
== END 2022-01-07 10:32 | disposition home or self-care (01) ==
LOC: ANHLAB 10:35
PROVIDERS: PCP Internal Medicine; Visit Provider Internal Medicine Medical Oncology
DX: C92.10 Chronic myeloid leukemia, BCR/ABL-positive, not having achieved remission (principal)
CPT/HCPCS: 36415; 80053; 81207; 85025

== ENCOUNTER 2022-01-16 10:02 | Outpatient (CLI) | payer MEDICARE, MEDICAID, SELFPAY ==
--- NOTE | ~2022-01-16 | CT_ITS ---
EXAMINATION: CT abdomen pelvis wo con DATE: 01/16/2022 10:48 INDICATION: Right hydronephrosis TECHNIQUE: Computed tomography (CT) of the abdomen and pelvis was performed without intravenous contr ast. Automated exposure control and iterative reconstruction technique were employed. Exam dose: 105 7.61 mGy-cm total exam DLP. COMPARISON: 12/21/2021 bilateral renal ultrasound; moderate right hydronephrosis and right renal corti paula thinning was reported, in addition to 3.8 cm right renal cyst 10/10/2020 CT abdomen pelvis FINDINGS: The lung bases are clear. Right atrial and ventricular cardiac pacemaker leads are noted. M ild cardiomegaly. No pericardial or pleural effusion. Very small sliding hiatal hernia. Status post cholecystectomy. No bile duct or pancreatic duct dilatation. No hepatic, splenic, pancrea tic or adrenal space-occupying mass lesion. No left renal mass lesion or left urinary tract calculus or hydroureteronephrosis. Approximately 2.9 x 4.2 cm posterior exophytic upper pole right renal cyst. There is severe thinning of the right renal cortex and severe right hydronephrosis as well as right r enal pelviectasis. There is a pinpoint renal calculus in the dependent right renal pelvis. There are 2 small nonobstruct ing mid and upper right renal calculi and one or 2 lower pole right renal calculi measuring up to flavia roximately 5.5 x 1.4 mm dimension. There is atherosclerotic calcification but normal caliber of the abdominal aorta, iliac and femoral a rteries. There are scattered nonspecific mildly prominent periaortic and aortocaval and iliac and inguinal lym ph nodes The urinary bladder is unremarkable. Status post hysterectomy. Status post appendectomy. There is a diverticulum of the splenic flexure of the colon no CT evidence of diverticulitis. No bowel obstruction, bowel wall thickening, pneumatosis or intraperitoneal free a ir. Small fat-containing umbilical hernia. There is a fat-containing infraumbilical left parasagittal her alexa measuring up to 4.6 cm width, 3 cm AP dimension, with 11.4 mm wide abdominal wall defect. Severe degenerative disc disease at L1-2, L2-3 IMPRESSION: Chronic prominent right hydronephrosis and pelviectasis Mild right nephrolithiasis Probable exophytic right renal cyst Very small sliding hiatal Status post cholecystectomy Status post appendectomy Status post hysterectomy Reviewed, dictated and finalized at Location A. Reviewed, dictated and finalized at location A.
[2022-01-16 10:31] LABS: Estimated Glomerular Filt Rate 25
== END 2022-01-16 10:03 | disposition home or self-care (01) ==
PROVIDERS: PCP Internal Medicine; Visit Provider Nurse Practitioner
DX: N13.30 Unspecified hydronephrosis (principal); N20.0 Calculus of kidney; K44.9 Diaphragmatic hernia without obstruction or gangrene; Z90.49 Acquired absence of other specified parts of digestive tract; Z90.710 Acquired absence of both cervix and uterus
CPT/HCPCS: 74176

== ENCOUNTER 2022-01-20 08:51 | Emergency (ER) | payer MEDICARE, MEDICAID, SELFPAY ==
--- NOTE | ~2022-01-20 | US_ITS ---
EXAMINATION: US venous doppler [facility] DATE: 01/20/2022 15:05 INDICATION: pain, swelling, redness . TECHNIQUE: Grayscale images without and with compression and Doppler images of the bilateral lower ex tremity veins were obtained. COMPARISON: None FINDINGS: Posterior tibial peroneal gastrocnemius soleus and lesser saphenous veins were not visualized or not imaged. The right common femoral vein, profunda (deep) femoral vein, femoral vein, popliteal vein, an d greater saphenous vein are patent. Peroneal gastrocnemius soleus and lesser saphenous veins were not visualized or not imaged. The left common femoral vein, profunda femoral vein, femoral vein, popliteal vein, posterior tibial veins, and greater saphenous vein are patent. IMPRESSION: 1. Limited visualization of the calf veins. 2. No evidence of deep venous thrombosis in visualized veins. Reviewed, dictated and finalized at location K. OR SQL SERVER DBA
--- NOTE | ~2022-01-20 | US_ITS ---
EXAMINATION: US abdomen limited DATE: 01/20/2022 15:05 INDICATION: R flank pain, elevated LFTs TECHNIQUE: Multiple grayscale and Doppler ultrasound images of limited portions of the abdomen were o btained. COMPARISON: CT abdomen and pelvis 01/16/2022. FINDINGS: The visualized portions of the pancreas are normal. The liver is enlarged with increased ec hogenicity and normal echotexture. No surface nodularity. Normal hepatopetal flow in the main portal vein. Cholecystectomy. The common bile duct measures 7 mm. There was no sonographic Dee sign. IMPRESSION: Echogenic liver, most commonly due to steatosis but also can be seen with hepatitis and fibrosis. Cho lecystectomy. Reviewed, dictated and finalized at location K. F MACHINE OPERATOR IMPRESSION: Echogenic liver, most commonly due to steatosis but also can be seen with hepat itis and fibrosis. Cholecystectomy.
[2022-01-20 08:51] VITALS: BP 166/92; PULSE 64; RESP 16; TEMP 36.8; O2SAT 100
[2022-01-20 09:03] VITALS: PULSE 66
--- NOTE | 2022-01-20 09:20 | ED.GENADULT ---
HPI - General Adult General Chief complaint: Unspecified Stated complaint: itchy, started new abx yest Time Seen by Provider: 01/20/22 09:19 Source: patient and old records reviewed Mode of arrival: ambulatory Limitations: no limitations History of Present Illness HPI narrative: Patient is an 81-year-old female who presents ED with multiple complaints. Patient reports she started an antibiotic yesterday for a chronic R kidney infection. She had an outpatient CT scan of her abdomen and pelvis performed on 01/16 which showed chronic R hydronephrosis. Dr. Chang started her on Macrobid per patient's records. Patient has previously taken Macrobid in November. Patient presents today with concern that she may be having allergic reaction to the medication. She complains of itching of her hands, chills, diffuse pain all over, worsening right flank pain. Last took Tylenol this morning. Denies any fever. Denies cough, cold symptoms, sore throat, nausea, vomiting, abdominal pain. Related Data Home Medications Medication Instructions Recorded Confirmed cholecalciferol (vitamin D3) 50 50 mcg PO DAILY 09/27/20 12/06/21 mcg (2,000 unit) tablet cyanocobalamin (vitamin B-12) 2,500 mcg sublingual DAILY 09/27/20 12/06/21 2,500 mcg sublingual tablet melatonin 5 mg tablet 5 mg PO HS 09/27/20 12/06/21 potassium chloride 20 mEq 20 meq PO DAILY 09/27/20 12/06/21 tablet,extended release tramadol 50 mg tablet 50 mg PO Q6H PRN 12/06/21 12/06/21 Allergies Allergy/AdvReac Type Severity Reaction Status Date / Time azithromycin Allergy Intermediate Other Verified 01/20/22 09:04 lisinopril Allergy Intermediate Unknown Verified 01/20/22 09:04 nitroglycerin Allergy Mild SKIN RASH Verified 01/20/22 09:04 UNDER NITRO PATCH NORMA Inhibitors Allergy Unknown Unknown Verified 01/20/22 09:04 phenazopyridine Allergy Unknown Unknown Verified 01/20/22 09:04 Review of Systems Review of Systems: CONSTITUTIONAL: Reports chills. Denies fever or sweats. ENT: Denies rhinorrhea, congestion, sore throat. CARDIOVASCULAR: Denies chest pain. RESPIRATORY: Denies cough or dyspnea. GASTROINTESTINAL: Denies abdominal pain, nausea, vomiting, or diarrhea. GENITOURINARY: Denies dysuria or hematuria. SKIN: Reports itching to bilateral hands. MUSCULOSKELETAL: Reports diffuse pain all over, right flank pain. NEUROLOGIC: Denies headache, numbness, or focal weakness. All systems reviewed & are unremarkable except as noted in HPI and below PMFSH Past Medical History Medical History Anemia of chronic disease Benign essential hypertension Chronic obstructive pulmonary disease, unspecified CKD (chronic kidney disease) stage 4, GFR 15-29 ml/min CML (chronic myelocytic leukemia) in remission since 2017 COVID-19 Depression with anxiety Diastolic CHF echo August 2017 GERD (gastroesophageal reflux disease) Gout Hyperlipidemia DIVINA (obstructive sleep apnea) (~11/2018) BiPAP 12/20 Osteoporosis Paroxysmal A-fib Peripheral neuropathy Sick sinus syndrome Umbilical hernia without obstruction and without gangrene Vitamin D deficiency Surgical History Surgical History Cardiac pacemaker in situ (~08/2017) History of appendectomy History of bladder surgery History of colonoscopy with polypectomy History of melanoma excision right nares History of total hysterectomy with bilateral salpingo-oophorectomy (BSO) History of total left knee replacement (TKR) History of total right knee replacement (~10/2008) Status post cataract extraction of both eyes with insertion of intraocular lens Status post cholecystectomy Family History Family History Mother Hypertension Breast cancer Heart disease Father Coronary artery disease Sibling Congestive heart failure Heart disease Lung cancer brot
--- NOTE | 2022-01-20 09:58 | ECG_ITS ---
Measurements Intervals Dewy Rose Rate: 69 P: 115 MS: 253 QRS: -22 QRSD: 93 T: 58 QT: 406 QTc: 437 Interpretive Statements ELECTRONIC ATRIAL PACEMAKER LOW QRS VOLTAGE IN PRECORDIAL LEADS BORDERLINE R WAVE PROGRESSION, ANTERIOR LEADS BORDERLINE ST-T WAVE ABNORMALITY- HIGH LATERAL LEADS BASELINE ARTIFACT- I, II, III, V1-V2 ABNORMAL ECG COMPARED TO ECG 09/26/2020 19:58:17 NO SIGNIFICANT CHANGES Electronically Signed On 01-20-2022 13:56:54 SHORER by Mike Savage D.O.
[2022-01-20 10:09] VITALS: BP 149/90; PULSE 67; RESP 19; O2SAT 100
[2022-01-20 10:19] LABS: Basophils Percent Auto 0.1 % (0.2-1.2); Eosinophils Absolute Auto 0.1 K/mm3 (0-0.3); Eosinophils Percent Auto 0.8 % (0-4.4); Hematocrit 36.1 % (37.0-47.0); Hemoglobin 11.7 g/dL (12.0-15.0); Immature Granulocyte Absolute 0.03 K/mm3 (0.00-0.031); Immature Granulocyte Percent A 0.3 % (0-0.5); Lymphocytes Absolute Auto 0.33 K/mm3 (0.9-3.2); Mean Corpuscular HGB Conc 32.4 g/dl (32-36); Mean Corpuscular Hemoglobin 32.3 pg (26-34); Mean Corpuscular Volume 99.7 fl (80-100); Mean Platelet Volume 10.3 fl (7.4-10.4); Monocytes Absolute Auto 0.3 K/mm3 (0.1-0.6); Monocytes Percent Auto 2.9 % (2.6-8.5); Neutrophils Absolute Auto 10.1 K/mm3 (1.3-6.7); Neutrophils Percent Auto 92.9 % (45.5-73.1); Platelet Count Result 181 k/mm3 (150-375); Red Blood Count 3.62 M/mm3 (4.2-5.4); White Blood Count 10.9 K/mm3 (4.5-10.0)
[2022-01-20 10:29] LABS: Alanine Aminotransferase 84 U/L (6-35); Albumin Level 3.9 g/dL (3.5-5.1); Alkaline Phosphatase 143 U/L (38-126); Anion Gap 10 mmol/L (8-16); Aspartate Amino Transferase 154 U/L (14-36); Bilirubin,Total 0.8 mg/dL (0.2-1.3); Blood Urea Nitrogen 28 mg/dL (7-17); Carbon Dioxide 24 mmol/L (22-30); Chloride 102 mmol/L (98-107); Estimated CRCL calculation 24 ml/min; Estimated Glomerular Filt Rate 25; Glucose 106 mg/dL (65-110); Sodium 136 mmol/L (137-145)
[2022-01-20 11:04] LABS: Appearance Urine Cloudy (Clear); Bilirubin Urine Negative (Negative); Blood Urine 2+ (Negative); Color Urine Yellow (Yellow); Glucose Urine UA Negative (Negative); Ketones Urine Negative (Negative); Leukocyte Esterase Ur 3+ LEU/UL (Negative); Nitrate Urine Negative (Negative); Protein Urine 2+ mg/dL (Negative); Specific Grav Ur 1.015 (1.001-1.035); Urobilinogen Urine 0.2 mg/dL (<2.0)
[2022-01-20 11:05] LABS: Influenza A QL RT-PCR Negative (Negative); Influenza B QL RT-PCR Negative (Negative); SARS-CoV-2 RNA PCR Negative
[2022-01-20 11:21] LABS: Bacteria Urine 1+ /hpf; Squamous Epithelial Cell Urine Rare /hpf (Few); WBC Urine >75 /hpf
[2022-01-20 11:25] LABS: Add Urine Microscopic? YES
[2022-01-20 11:57] VITALS: BP 113/48; PULSE 71; RESP 16; O2SAT 96
[2022-01-20 13:04] VITALS: BP 147/69; PULSE 79; RESP 15; O2SAT 98
[2022-01-20 15:09] VITALS: BP 144/86; PULSE 67; RESP 19; O2SAT 98
== END 2022-01-20 15:48 | disposition home or self-care (01) ==
PROVIDERS: Physician Assistant; Emergency Provider Emergency Medicine; PCP Internal Medicine
DX: N30.01 Acute cystitis with hematuria (principal); N18.4 Chronic kidney disease, stage 4 (severe); N13.30 Unspecified hydronephrosis; R74.01 Elevation of levels of liver transaminase levels; Z20.822 Contact with and (suspected) exposure to COVID-19; I13.0 Hypertensive heart and chronic kidney disease with heart failure and stage 1 through stage 4 chronic kidney disease, or unspecified chronic kidney disease; I50.30 Unspecified diastolic (congestive) heart failure; D63.8 Anemia in other chronic diseases classified elsewhere; J44.9 Chronic obstructive pulmonary disease, unspecified; I48.0 Paroxysmal atrial fibrillation; C92.11 Chronic myeloid leukemia, BCR/ABL-positive, in remission; E78.5 Hyperlipidemia, unspecified; M10.9 Gout, unspecified; G47.33 Obstructive sleep apnea (adult) (pediatric); G62.9 Polyneuropathy, unspecified; M79.605 Pain in left leg; M79.604 Pain in right leg; Z86.16 Personal history of COVID-19; Z95.0 Presence of cardiac pacemaker; Z90.710 Acquired absence of both cervix and uterus; Z90.722 Acquired absence of ovaries, bilateral; Z90.79 Acquired absence of other genital organ(s); Z96.653 Presence of artificial knee joint, bilateral; Z98.42 Cataract extraction status, left eye; Z98.41 Cataract extraction status, right eye; Z96.1 Presence of intraocular lens; Z66 Do not resuscitate; Z87.891 Personal history of nicotine dependence; R94.31 Abnormal electrocardiogram [ECG] [EKG]
CPT/HCPCS: 36415; 51701; 76705; 80053; 81001; 85025; 87086; 87088; 87636; 93005; 93970; 96365; 99284; J0131

== ENCOUNTER 2022-02-01 11:34 | Outpatient (CLI) | payer MEDICARE, MEDICAID, SELFPAY ==
--- NOTE | ~2022-02-01 | NM_ITS ---
EXAMINATION: ZINA galicia renal scan DATE: 02/01/2022 14:05 INDICATION: Right hydronephrosis. TECHNIQUE: 8 mCi Tc-99m MAG3 was administered IV. 40 mg furosemide was administered IV immediately a fterward. The patient was scanned in the supine position. A posterior abdominal radionuclide angiogra m was obtained. A subsequent time course of static images of the kidneys, ureters, and bladder was ob tained. COMPARISON: CT abdomen and pelvis 01/16/2022, renal scan 08/07/2018, 09/22/2015 FINDINGS: The posterior abdominal radionuclide angiogram and sequential static images show decreased size of the right kidney. Peak renal parenchymal uptake was 27 min in right kidney and 3 min in left kidney (normal peak 3-5 minutes). The relative early renal uptake was 31% on the right and 69% on th e left (<40% is abnormal). No abnormalities of the ureters or bladder are seen. T1/2 for clearance of activity from the right kidney and proximal collecting system could not be amilcar ured. T1/2 for clearance of activity from the left kidney and proximal collecting system was 15 minutes. IMPRESSION: 1. Atrophy of right kidney with 31% of total renal function. Given the chronic right-sided kidney in enma, this exam cannot be used to confirm or exclude fixed ureteral obstruction. 2. Delayed contrast uptake in right kidney and delayed contrast clearance in left kidney, likely sec ondary to decreased renal function. Reviewed, dictated and finalized at location A. LOGY PROFESSOR IMPRESSION: 1. Atrophy of right kidney with 31% of total renal function. Given the chronic right-sided kidney injury, this exam cannot be used to confirm or exclude fixe d ureteral obstruction. 2. Delayed contrast uptake in right kidney and delayed contrast clearance in l eft kidney, likely secondary to decreased renal function.
[2022-02-01 12:11] LABS: Alanine Aminotransferase 25 U/L (6-35); Albumin Level 4.1 g/dL (3.5-5.1); Alkaline Phosphatase 101 U/L (38-126); Aspartate Amino Transferase 27 U/L (14-36); Bilirubin,Total 0.4 mg/dL (0.2-1.3)
== END 2022-02-01 11:35 | disposition home or self-care (01) ==
PROVIDERS: PCP Internal Medicine; Referring Provider Internal Medicine; Visit Provider Nurse Practitioner
DX: R79.89 Other specified abnormal findings of blood chemistry (principal); N13.30 Unspecified hydronephrosis; N26.1 Atrophy of kidney (terminal); R93.421 Abnormal radiologic findings on diagnostic imaging of right kidney
CPT/HCPCS: 36415; 78708; 80076; A9562

== ENCOUNTER 2022-02-28 16:18 | Outpatient (CLI) | payer MEDICARE, MEDICAID, SELFPAY ==
--- NOTE | ~2022-02-28 | MM_ITS ---
EXAMINATION: MM screening donis BI w ledy HISTORY: Screening TECHNIQUE: Craniocaudal and mediolateral oblique 3-D tomosynthesis images were obtained and synthetic 2-D images were generated. CAD analysis was submitted and interpreted. COMPARISON: Comparison to multiple prior studies sequentially, with oldest reviewed study dated 11/2014. BREAST PARENCHYMAL COMPOSITION: There are scattered areas of fibroglandular density. FINDINGS: There is no evidence of suspicious mass, calcification, or architectural distortion to sugg est malignancy in either breast. There has been no suspicious interval change. IMPRESSION: 1. No mammographic evidence of malignancy. 2. Recommend routine screening mammography in one year. BI-RADS Category 1: Negative Reviewed, dictated and finalized at location B. ICE AIDE
== END 2022-02-28 16:19 | disposition home or self-care (01) ==
PROVIDERS: PCP Internal Medicine; Visit Provider Internal Medicine
DX: Z12.31 Encounter for screening mammogram for malignant neoplasm of breast (principal)
CPT/HCPCS: 77063; 77067

== ENCOUNTER 2022-03-07 10:02 | Outpatient (CLI) | payer MEDICARE, MEDICAID, SELFPAY ==
[2022-03-07 11:08] LABS: INR 1.5; Prothrombin Time 17.1 Seconds (11.1-14.7)
[2022-03-07 11:09] LABS: Partial Thromboplastin Time 35.1 SECONDS (22.3-36.8)
== END 2022-03-07 10:03 | disposition home or self-care (01) ==
PROVIDERS: Anesthesiology; PCP Internal Medicine; Visit Provider Urology
DX: N18.4 Chronic kidney disease, stage 4 (severe) (principal)
CPT/HCPCS: 36415; 85610; 85730

== ENCOUNTER 2022-03-14 00:37 | Day surgery (SDC) | payer MEDICARE, MEDICAID, SELFPAY ==
[2022-02-28 09:05] VITALS: BMI 40.3
--- NOTE | 2022-02-28 09:38 | PC.NURSE ---
Report to the Outpatient Waiting Room, entrance under the green pavilion located off [facility], at time _10:00AM on date __03/14/22 . Planned Procedure Time: __12:00PM . Time changes happen often and if your time is changed the preop area will call you the afternoon before. - You and your visitor will be asked to self-screen and do not enter if you have any COVID symptoms. - Only one visitor is requested with a max of two and NO children visitors are allowed at this time. - The patient visitor may be requested to leave or wait in car when not with patient due to distancing restrictions. - A mask is optional within the hospital. Patients may have clear liquids (water, carbonated beverages, clear teas, apple juice) until 3 hours prior to surgery with a maximum of 20 ounces. - No food from midnight until time of surgery Take the following medications with a SIP of water the morning of surgery: __SOTOLOL, TRAMADOL NEEDED, SPIRVIA AND WIXELA INHALERS, ALBUTEROL INHALER OR NEBULIZER NEEDED Medications to discontinue per physician ____HOLD XERALTO PER DR ARGUELLO, HOLD ALL VITAMINS/SUPPLEMENTS 3 DAYS PRE-OP- LAST DOSE 03/10/22 Please no make-up, nail central african, hairspray, perfume, deodorant, or body powder the day of surgery. No jewelry (including any body piercings) or valuables the day of surgery, leave them at home. Please take a shower or bath the night before, or the morning of, surgery with an antibacterial soap. Wear comfortable, loose fitting clothing. Children are encouraged to wear pajamas. - Jewelry must be removed prior to entering the operating room. Rings and piercings that are not removed may be cut off. - The hospital will not accept responsibility for valuables. - Please leave all valuables, including medications, at home the day of surgery. If you are going home after surgery, a licensed dump truck driver off highway must drive you home. - NO public transportation without another adult if you receive anesthesia. - We recommend that an adult stay with you for 24 hours following discharge. - We also recommend that you do not drive, make important decision, drink alcoholic beverages, or take any drugs that were not prescribed by your health care provider for at least 24 hours after your discharge time. Follow any additional instructions given to you from your surgeon. If you or anyone in your household have experienced Covid symptoms in the past week, please notify your surgeon or the nurse liaison at the phone number below for possible testing. Telephone instructions given to __PATIENT and asked if any additional questions and then verbalized understanding. Patient advised to call surgeon office or pre surgery nurse liaison [phone] if any additional questions.
[2022-03-14] VITALS (7 sets, daily range): BP systolic 123–151; BP diastolic 55–96; PULSE 61–83; RESP 16–20; TEMP 36.4; O2SAT 99–100
--- NOTE | ~2022-03-14 | XR_ITS ---
EXAMINATION: XR retrograde pyelo w/stent RT DATE: 03/14/2022 13:03 INDICATION: Nephrolithiasis for stone extraction and stent placement TECHNIQUE: 109 fluoroscopic images of the abdomen and pelvis were obtained during procedure performed by Dr. Chang. Radiologist was not present for the imaging or procedure. The amount of fluoroscopy t michael used during this procedure was 0.8 minutes. COMPARISON: CT dated 01/16/2022 FINDINGS: Retrograde contrast injection into the right ureter demonstrates dilation of the mid normal caliber d istal right ureter with gradual transition to a mildly dilated mid right ureter with no evident focal stricture or obstructing stone. More proximal ureter tapers at the junction of the mid to proximal t hird. Same contrast likely diluted by urine can be seen more proximally in the dilated right renal co llecting system. Final image demonstrates placement of a right internal ureteral stent with loops for med in the bladder and the right ureteral pelvis. IMPRESSION: 1. Suggestion of an indeterminate obstructing lesion at the junction of the proximal to mid right ure ter with right hydronephrosis. See procedure note for further detail. 2. Placement of a right internal ureteral stent which is in expected position. Reviewed, dictated and finalized at location A. D CROP FARMER IMPRESSION: 1. Suggestion of an indeterminate obstructing lesion at the junction of the pro ximal to mid right ureter with right hydronephrosis. See procedure note for fur ther detail. 2. Placement of a right internal ureteral stent which is in expected position.
--- NOTE | 2022-03-14 06:22 | WPDHPUPDATE1 ---
History and Physical Update Update Date/Time: 03/14/22 06:22 History and Physical has been reviewed, including an updated exam of the patient. There are NO changes in the patient's condition. Risks, benefits, and alternatives have been discussed and questions answered. Patient agrees to proceed with procedure.
[2022-03-14] MEDS: LACTATED RINGERS 1,000 ML 30 ML IV CONT (10:35)
[2022-03-14 11:04] LABS: INR 1.1; Prothrombin Time 13.6 Seconds (11.1-14.7)
--- NOTE | 2022-03-14 11:19 | WPDANESEPPF ---
Anes - Initial Pre Proc Eval Procedure: Operation Date: 03/14/22 12:00 Proposed Procedures p Cystoscopy, Right Ureteroscopy, Right Retrograde Pyelogram, Right Stent Placement - Brandon Chang MD Date/Time: 03/14/22 11:19 Surgeon: Brandon Chang MD Pre Op Diagnosis: right hydronephrosis Patient Data Age: 81 Gender: F Height: 1.57 m Weight: 95.5 kg Last Vital Signs Temp 36.4 C 03/14/22 10:07 Pulse 83 03/14/22 10:07 Resp 16 03/14/22 10:07 BP 151/96 H 03/14/22 10:07 Pulse Ox 99 03/14/22 10:07 O2 Del Method Room Air 03/14/22 10:07 Allergies Allergy/AdvReac Type Severity Reaction Status Date / Time NORMA Inhibitors Allergy Intermediate Rash Verified 03/14/22 10:27 azithromycin Allergy Intermediate Itching Verified 03/14/22 10:27 lisinopril Allergy Intermediate RASH? Verified 03/14/22 10:27 nitroglycerin Allergy Intermediate SKIN RASH Verified 03/14/22 10:27 UNDER NITRO PATCH phenazopyridine Allergy Unknown Unknown Verified 03/14/22 10:27 Home Medications Medication Instructions Recorded Confirmed Type ipratropium 0.5 mg-albuterol 3 mg 3 ml inhalation Q4H PRN shortness 02/25/19 02/28/22 Rx (2.5 mg base)/3 mL nebulization of breath or wheezing #180 mL soln cholecalciferol (vitamin D3) 50 50 mcg PO DAILY 09/27/20 03/14/22 History mcg (2,000 unit) tablet cyanocobalamin (vitamin B-12) 2,500 mcg sublingual DAILY 09/27/20 03/14/22 History 2,500 mcg sublingual tablet melatonin 5 mg tablet 5 mg PO HS 09/27/20 03/14/22 History potassium chloride 20 mEq 20 meq PO DAILY 09/27/20 03/14/22 History tablet,extended release diphenhydramine HCl 25 mg tablet 25 mg PO TID PRN Allergic Symptoms 10/17/20 03/14/22 Rx (Benadryl Allergy) #0 tabs sotalol 80 mg tablet 80 mg PO BID #180 tabs 05/04/21 03/14/22 Rx rivaroxaban 20 mg tablet (Xarelto) 20 mg PO DAILY #90 tabs 05/29/21 03/14/22 Rx triamcinolone acetonide 0.1 % 1 applic topical BID PRN Itching 05/30/21 03/14/22 Rx topical cream #15 grams allopurinol 100 mg tablet 100 mg PO DAILY #90 tabs 11/07/21 03/14/22 Rx tramadol 50 mg tablet 50 mg PO Q6H PRN Pain 12/06/21 03/14/22 History tiotropium bromide 2.5 2 inh inhalation QAM #4 grams 01/02/22 03/14/22 Rx mcg/actuation mist for inhalation (Spiriva Respimat) bumetanide 1 mg tablet 1 mg PO DAILY #90 tabs 01/28/22 03/14/22 Rx esomeprazole magnesium 40 mg 40 mg PO DAILY #90 caps 01/28/22 03/14/22 Rx capsule,delayed release albuterol sulfate 90 mcg/actuation See Rx Instructions .Route 01/31/22 03/14/22 Rx aerosol inhaler (ProAir HFA) .COMPLEX #8.5 grams magnesium oxide 400 mg (241.3 mg 400 mg PO DAILY #90 tabs 01/31/22 03/14/22 Rx magnesium) tablet Macutene 1 ophthalmic insert BYMOUTH BID 02/28/22 03/14/22 History guaifenesin 600 mg tablet, 1,200 mg PO Q12HR PRN Congestion 02/28/22 02/28/22 History extended release 12 hr (Mucus Relief ER) isosorbide mononitrate 30 mg 30 mg PO QAM 02/28/22 03/14/22 History tablet,extended release 24 hr lamotrigine 25 mg tablet 25 mg PO BID 02/28/22 03/14/22 History multivitamin 1 tablet PO DAILY 02/28/22 03/14/22 History simvastatin 40 mg tablet 40 mg PO HS 02/28/22 03/14/22 History vit C 250 mg-vit E 90 mg-zinc 40 1 tablet PO BID 02/28/22 03/14/22 History mg-copper 1 ce-cbfrmq-kzbfin capsule (PreserVision AREDS-2) fluticasone 250 mcg-salmeterol 50 See Rx Instructions .Route 03/04/22 03/14/22 Rx mcg/dose blistr powdr for .COMPLEX #180 ea inhalation Laboratory Tests 03/14/22 10:43 PT 13.6 Seconds Seconds (11.1-14.7) INR 1.1 Patient hx anesthesia problems: none Family hx anesthesia problems: none Results Review: All pre-operative results and documents have been reviewed as part of the pre-operative evaluation. [facility] Past Medical History Medical History Anemia of chronic disease Benign essential hypertension Chronic ob
[2022-03-14] MEDS: ceFAZolin 2 GM/D5W 50 ML 2 GM/50 ML BAG IVPB (12:02)
--- NOTE | 2022-03-14 13:17 | P.OP_ITS ---
Procedure Note - Detailed Date of Procedure 03/14/22 Pre-op Diagnosis Right hydronephrosis Post-op Diagnosis Other (Right ureteral stones) Procedure Performed Cystoscopy, right retrograde pyelography, right ureteroscopy with laser litho tripsy, stone extraction and stent placement Surgeon Brandon Chang MD Anesthesia General Description of Procedure Patient is brought to the operative suite she has prepped draped in routine sterile fashion while in dorsal lithotomy position after the uneventful inducti on of a general LMA anesthetic. Cystoscopy is undertaken with a 21 F rigid cystoscope. Bladder mucosa is normal. There was no intravesical foreign body neoplasms. Eight F bulb tip catheter was used to obtain right retrograde pyelogram. There was a hydronephrotic ureter but I can not determine the exact point of obstruction. A 0.035 in glidewire was advanced in the right renal pelvis and the distal ureter was dilated with an 8 F 10 F dilator. Ureteroscopy was undertaken with the 7.5 F flexible ureteral scope. I found 2 right ureteral stones at about L2-L3. One these was larger and impeding the passage of the smaller. Using the 273 micron holmium laser I dusted these stones into tiny fragments. The largest fragment was removed with ease. A 4.8 F variable length stent was placed in scopes and wires removed. Drains Yes Packing No Pathology Yes Complications No immediate complications
--- NOTE | 2022-03-14 14:02 | ECG_ITS ---
Measurements Intervals [place] Rate: 64 P: 23 FL: 222 QRS: -39 QRSD: 98 T: 60 QT: 424 QTc: 438 Interpretive Statements LIKELY SINUS RHYTHM WITH FIRST DEGREE AV BLOCK. BASELINE ARTIFACT LIMITS INTERPREATION OF RHYTHM. MARKED LEFT AXIS DEVIATION [QRS AXIS < -30] COMPARED TO ECG 01/20/2022 10:12:32 SINUS RHYTHM NOW PRESENT Electronically Signed On 03-14-2022 15:06:39 DIRECTOR OF MANUFACTURING by Sky Mohr M.D.
[2022-03-14] MEDS: ONDANSETRON INJ 4 MG/2 ML VIAL IV PUSH (14:09)
[2022-03-14] MEDS: MAG HYDROX/AL HYDROX/SIMETH 30 ML UDC PO (14:26)
[2022-03-14] MEDS: KETOROLAC 15 MG/ML VIAL (*BKC) IV PUSH (14:30)
--- NOTE | 2022-03-14 14:46 | SUR.PHASEII ---
1355 patient having chest discomfort, pain 7/10 rt upper chest radiating to back. dr franco called, ekg ordered, vital sign sstable on room air 1420 ekg normal sinus, 1st degree av block. pain subsided to 4/10 pt on stretcher side lying position
== END 2022-03-14 15:40 | disposition home or self-care (01) ==
PROVIDERS: Anesthesiology; PCP Internal Medicine; Visit Provider Urology
PROC: (CPT 52352; principal; 2022-03-14 12:00)
DX: N13.2 Hydronephrosis with renal and ureteral calculous obstruction (principal); I13.0 Hypertensive heart and chronic kidney disease with heart failure and stage 1 through stage 4 chronic kidney disease, or unspecified chronic kidney disease; I50.30 Unspecified diastolic (congestive) heart failure; N18.4 Chronic kidney disease, stage 4 (severe); C92.10 Chronic myeloid leukemia, BCR/ABL-positive, not having achieved remission; J44.9 Chronic obstructive pulmonary disease, unspecified; D63.1 Anemia in chronic kidney disease; F41.8 Other specified anxiety disorders; K21.9 Gastro-esophageal reflux disease without esophagitis; M10.9 Gout, unspecified; E78.5 Hyperlipidemia, unspecified; G47.33 Obstructive sleep apnea (adult) (pediatric); I48.0 Paroxysmal atrial fibrillation; M81.0 Age-related osteoporosis without current pathological fracture; G62.9 Polyneuropathy, unspecified; E55.9 Vitamin D deficiency, unspecified; Z95.0 Presence of cardiac pacemaker; Z79.51 Long term (current) use of inhaled steroids; Z79.01 Long term (current) use of anticoagulants; Z87.891 Personal history of nicotine dependence; E66.9 Obesity, unspecified; Z68.38 Body mass index [BMI] 38.0-38.9, adult
CPT/HCPCS: 52356; 36415; 74420; 82365; 85610; 87077; 87086; 87186; 88300; 93005; A9270; C1769; C2617; J0690; J1100; J1885; J2405; J2704; J7120

== ENCOUNTER 2022-03-24 13:23 | Observation (INO) | payer MEDICARE, MEDICAID, SELFPAY ==
--- NOTE | ~2022-03-24 | XR_ITS ---
EXAM: XR foot RT min 3V, XR foot LT min 3V DATE: 03/24/2022 14:21 HISTORY: NEW ONSET PAIN TO GLORIA FEET, HOT TO TOUCH, RED . COMPARISON: Right foot x-ray 11/01/2012. FINDINGS: Severely decreased mineralization. No fracture or dislocation. No lytic or blastic lesion. Bilateral pes planus, worse on the left. Bilateral Achilles and plantar enthesopathy. Degenerative s ubchondral cysts versus osteochondral lesion in the navicular Scattered degenerative changes. No eros ion or periosteal change. Soft tissues within normal limits. IMPRESSION: No acute osseous finding in the left or right foot. Reviewed, dictated and finalized at location K. AGE MASTER IMPRESSION: No acute osseous finding in the left or right foot.
--- NOTE | ~2022-03-24 | XR_ITS ---
EXAMINATION: XR chest 1V portable 03/24/2022 14:21 INDICATION: CHF PROCEDURE: AP portable chest COMPARISON: Comparison to multiple prior studies sequentially, with oldest reviewed study dated 09/26. FINDINGS: The lungs are clear. Mild cardiomegaly. Pacemaker leads are stable. There are no pleural ef fusions. There is no pneumothorax suspected. IMPRESSION: 1: NO ACUTE CARDIOPULMONARY DISEASE. Reviewed, dictated and finalized at location A. RONMENTAL SERVICES ASSISTANT
[2022-03-24 13:28] VITALS: PULSE 64; RESP 16; TEMP 36.8; O2SAT 100
[2022-03-24 14:40] LABS: Basophils Absolute Auto 0.1 K/mm3 (0.0-0.1); Basophils Percent Auto 0.6 % (0.2-1.2); Eosinophils Absolute Auto 0.2 K/mm3 (0-0.3); Eosinophils Percent Auto 2.8 % (0-4.4); Hematocrit 34.6 % (37.0-47.0); Hemoglobin 11.2 g/dL (12.0-15.0); Immature Granulocyte Absolute 0.06 K/mm3 (0.00-0.031); Immature Granulocyte Percent A 0.7 % (0-0.5); Lymphocytes Absolute Auto 1.11 K/mm3 (0.9-3.2); Lymphocytes Percent Auto 13.7 % (18.3-44.2); Mean Corpuscular HGB Conc 32.4 g/dl (32-36); Mean Corpuscular Hemoglobin 32.8 pg (26-34); Mean Corpuscular Volume 101.5 fl (80-100); Mean Platelet Volume 10.5 fl (7.4-10.4); Monocytes Absolute Auto 0.4 K/mm3 (0.1-0.6); Monocytes Percent Auto 5.2 % (2.6-8.5); Neutrophils Absolute Auto 6.2 K/mm3 (1.3-6.7); Platelet Count Result 219 k/mm3 (150-375); Red Blood Count 3.41 M/mm3 (4.2-5.4); Red Cell Distribution Width 14.2 % (11.5-14.5); White Blood Count 8.1 K/mm3 (4.5-10.0)
[2022-03-24 14:49] LABS: Lactic Acid Reflex 1.5 mmol/L (0.7-2.0)
[2022-03-24 14:51] LABS: Alanine Aminotransferase 77 U/L (6-35); Albumin Level 3.7 g/dL (3.5-5.1); Alkaline Phosphatase 195 U/L (38-126); Anion Gap 9 mmol/L (8-16); Aspartate Amino Transferase 108 U/L (14-36); Bilirubin,Total 0.5 mg/dL (0.2-1.3); Blood Urea Nitrogen 22 mg/dL (7-17); CRP 1.5 mg/dL (<1.0); Calcium 8.8 mg/dL (8.4-10.2); Carbon Dioxide 25 mmol/L (22-30); Chloride 99 mmol/L (98-107); Estimated CRCL calculation 28 ml/min; Estimated Glomerular Filt Rate 31; Glucose 112 mg/dL (65-110); Potassium 4.2 mmol/L (3.4-5.0); Sodium 133 mmol/L (137-145); Uric Acid 6.8 mg/dL (2.5-7.5)
[2022-03-24 14:57] LABS: NT Pro B Type Natriuretic Pept 3760 pg/mL (5-100)
--- NOTE | 2022-03-24 15:03 | ED.GENADULT ---
HPI - General Adult General Chief complaint: Unspecified Stated complaint: my feet are red swollen and hurt Time Seen by Provider: 03/24/22 13:51 Source: patient and RN notes reviewed Mode of arrival: wheelchair Limitations: no limitations History of Present Illness HPI narrative: This is an 81 year old female with history of multiple medical problems who presents for evaluation of bilateral feet and leg redness with swelling. Patient reports chronic leg swelling but states that her feet have been swollen for 3 days. She also reports bilateral feet burning, itching pain and redness. She states her lower legs are typically red but the redness is more severe. She has pain from her feet to both knees. She denies fever but she reports chills intermittent for 1 year. She completed antibiotics after having ureteral stent placement. She was started on macrobid 3 days for treatment of a UTI. Related Data Home Medications Medication Instructions Recorded Confirmed cholecalciferol (vitamin D3) 50 50 mcg PO DAILY 09/27/20 03/14/22 mcg (2,000 unit) tablet cyanocobalamin (vitamin B-12) 2,500 mcg sublingual DAILY 09/27/20 03/14/22 2,500 mcg sublingual tablet melatonin 5 mg tablet 5 mg PO HS 09/27/20 03/14/22 potassium chloride 20 mEq 20 meq PO DAILY 09/27/20 03/14/22 tablet,extended release tramadol 50 mg tablet 50 mg PO Q6H PRN Pain 12/06/21 03/14/22 Macutene 1 ophthalmic insert BYMOUTH BID 02/28/22 03/14/22 guaifenesin 600 mg tablet, 1,200 mg PO Q12HR PRN Congestion 02/28/22 02/28/22 extended release 12 hr (Mucus Relief ER) isosorbide mononitrate 30 mg 30 mg PO QAM 02/28/22 03/14/22 tablet,extended release 24 hr lamotrigine 25 mg tablet 25 mg PO BID 02/28/22 03/14/22 multivitamin 1 tablet PO DAILY 02/28/22 03/14/22 simvastatin 40 mg tablet 40 mg PO HS 02/28/22 03/14/22 vit C 250 mg-vit E 90 mg-zinc 40 1 tablet PO BID 02/28/22 03/14/22 mg-copper 1 mo-kzahan-znctlp capsule (PreserVision AREDS-2) Allergies Allergy/AdvReac Type Severity Reaction Status Date / Time NORMA Inhibitors Allergy Intermediate Rash Verified 03/24/22 13:46 azithromycin Allergy Intermediate Itching Verified 03/24/22 13:46 lisinopril Allergy Intermediate RASH? Verified 03/24/22 13:46 nitroglycerin Allergy Intermediate SKIN RASH Verified 03/24/22 13:46 UNDER NITRO PATCH phenazopyridine Allergy Unknown Unknown Verified 03/24/22 13:46 Review of Systems Constitutional: Constitutional: Reports chills, Denies fever(s) and Denies weakness Cardiovascular: Cardiovascular: Denies syncope, Denies rapid heart rate, Reports pedal edema, Denies irregular heart rhythm, Reports leg edema and Denies dyspnea Respiratory: Respiratory: Denies chest congestion, Denies hemoptysis, Denies excessive phlegm production and Denies dyspnea Gastrointestinal: Gastrointestinal: Denies abdominal pain, Denies hematochezia, Denies diarrhea and Denies vomiting Genitourinary: Genitourinary: Denies hematuria and Reports dysuria Musculoskeletal: Musculoskeletal: Denies joint swelling, Denies loss of height and Denies muscle weakness Neurologic: Denies syncope, Denies focal weakness and Denies weakness PMFSH Past Medical History Medical History Anemia of chronic disease Benign essential hypertension Chronic obstructive pulmonary disease, unspecified CKD (chronic kidney disease) stage 4, GFR 15-29 ml/min CML (chronic myelocytic leukemia) in remission since 2017 COVID-19 Depression with anxiety Diastolic CHF echo August 2017 GERD (gastroesophageal reflux disease) Gout Hyperlipidemia DIVINA (obstructive sleep apnea) (~11/2018) BiPAP 12/20 Osteoporosis Paroxysmal A-fib Peripheral neuropathy Sick sinus syndrome Umbilical hernia without obstruction and without gangrene Vitamin D deficiency Surgical History Surgical History Cardiac pacemaker in situ (~
[2022-03-24] MEDS: FUROSEMIDE INJ 40 MG/4 ML VIAL IV PUSH (15:37)
[2022-03-24 15:40] VITALS: BP 134/82; PULSE 66; RESP 18; O2SAT 100
--- NOTE | 2022-03-24 16:33 | PC.NURSE ---
ordered pt heart healthy dinner tray.
[2022-03-24 17:07] LABS: Influenza A QL RT-PCR Negative (Negative); Influenza B QL RT-PCR Negative (Negative); SARS-CoV-2 RNA PCR Negative
[2022-03-24 19:15] VITALS: BP 141/76; PULSE 79; RESP 18; O2SAT 97
[2022-03-24 19:43] VITALS: BP 136/71; PULSE 74; RESP 18; TEMP 36.8; O2SAT 98
[2022-03-24 22:00] VITALS: BP 138/85; PULSE 78; RESP 16; TEMP 36.4; O2SAT 100
--- NOTE | 2022-03-24 22:16 | PM.IMHP ---
H&P: HPI History of Present Illness Date/Time: 03/24/22 22:16 Chief Complaint: swollen and red legs Narrative: this is an 81-year-old female patient who came in to be evaluated for bilateral lower extremity redness and swelling. The patient stated that she chronically has edema to her lower extremities in the ear typically a light pink color and are more warm and red and than usual. The patient stated she typically has cellulitis in 1 leg but not the other at at the same time. She has had burning and itching and redness to bilateral lower extremities. She does have peripheral neuropathy. Patient recently been on Macrobid for a UTI after having ureteral stent placement. She has only been on Macrobid for 3 days. Her white count is normal. H&H is 11.2 and 34.6. Her creatinine is 1.6 with a baseline of 1.6-1.9. Her CRP is 1.5. BNP 3760. She was found to be negative for influenza A/B and COVID. Foot x-ray read as no acute osseous finding in the left or right foot. Chest x-ray read as no acute cardiopulmonary disease. The patient was given IV fluids, and Ancef. The patient is being admitted to observation status on the date of service of 03/24/2022. Review of Systems Review of Systems: See HPI All systems reviewed & are unremarkable except as noted in HPI and below Constitutional: Constitutional: Reports as per HPI and Reports no additional constitutional complaints Eyes: Eyes: Reports as per HPI and Reports no additional eye complaints ENT: Reports system reviewed and no additional complaints, except as documented and Reports Normal hearing present Cardiovascular: Cardiovascular: Reports no additional cardiovascular complaints Respiratory: Respiratory: Reports no additional respiratory complaints and Reports no additional respiratory complaints Gastrointestinal: Gastrointestinal: Reports as per HPI and Reports no additional gastrointestinal complaints Musculoskeletal: Musculoskeletal: Reports no additional musculoskeletal complaints Integumentary/Breasts: Skin/Breast: Reports system reviewed and no additional complaints, except as docu and Reports as per HPI Neurologic: Reports system reviewed and no additional complaints, except as documented, Reports as per HPI and Reports Normal hearing present Psychiatric: Psychiatric: Reports no additional psychiatric complaints and Reports as per HPI Endocrine: Endocrine: Reports no additional endocrine complaints Hematologic/Lymphatic: Hematologic/Lymphatic: Reports no additional hematologic/lymphatic complaints Allergic/Immunologic: Allergic/Immunologic: Reports no additional allergic/immunologic complaints [facility] Past Medical History Medical History (Updated 03/25/22 @ 02:06 by Shea Gordillo NP) Anemia of chronic disease Benign essential hypertension Chronic obstructive pulmonary disease, unspecified CKD (chronic kidney disease) stage 4, GFR 15-29 ml/min CML (chronic myelocytic leukemia) in remission since 2016 COVID-19 Depression with anxiety Diastolic CHF echo August 2017 GERD (gastroesophageal reflux disease) Gout Hyperlipidemia DIVINA (obstructive sleep apnea) (~11/2018) BiPAP 12/20 Osteoporosis Paroxysmal A-fib Peripheral neuropathy Pneumonia due to COVID-19 virus Screening for breast cancer Sick sinus syndrome Suspected COVID-19 virus infection Umbilical hernia without obstruction and without gangrene Vitamin D deficiency Surgical History Surgical History (Updated 03/25/22 @ 01:52 by Shea Gordillo NP) Cardiac pacemaker in situ (~08/2017) History of appendectomy History of bladder surgery History of colonoscopy with polypectomy History of melanoma excision right nares History of total hysterectomy with bilateral salpingo-oophorectomy (BSO) History of total right knee replacement (~10/2008) Status post cataract extraction of both eyes with insertion of intraocular lens Status post cholecystectomy Family History Family History (Reviewed
[2022-03-25 02:17] VITALS: PULSE 79; RESP 18; O2SAT 96
[2022-03-25] MEDS: ceFAZolin 500 MG in DEXTROSE 5% IN WATER 50 ML 100 MG IVPB (04:32)
[2022-03-25 06:00] VITALS: BP 151/83; PULSE 71; RESP 16; TEMP 36; O2SAT 98
[2022-03-25] MEDS: TRIAMCINOLONE ACET 0.1% CREAM 15 GM TUBE 1 APPLIC TOPICAL (08:28)
[2022-03-25] MEDS: BUMETANIDE 1 MG TABLET PO (08:28)
[2022-03-25] MEDS: lamoTRIgine 25 MG TABLET PO (08:28)
[2022-03-25 08:29] VITALS: PULSE 76
[2022-03-25] MEDS: guaiFENesin 12 HR 600 MG TABCR 1200 MG PO (08:29)
[2022-03-25] MEDS: ISOSORBIDE MONONITRATE 30 MG TAB.ER.24H PO (08:29)
[2022-03-25] MEDS: POTASSIUM CHLORIDE 20 MEQ TABLET.ER PO (08:29)
[2022-03-25] MEDS: MULTIVITAMINS THERAPEUTIC TAB (*BKC) 1 TABLET PO (08:29)
[2022-03-25] MEDS: PANTOPRAZOLE 40 MG TABLET PO (08:29)
[2022-03-25] MEDS: CYANOCOBALAMIN 1,000 MCG TABLET 2000 MCG BY MOUTH (08:29)
[2022-03-25] MEDS: SOTALOL HCL 80 MG TABLET PO (08:29)
[2022-03-25] MEDS: CHOLECALCIFEROL 1,000 UNITS TABLET 2000 UNITS PO (08:30)
[2022-03-25] MEDS: CYANOCOBALAMIN 500 MCG TABLET BY MOUTH (08:30)
[2022-03-25] MEDS: allopurinoL 100 MG TABLET PO (08:30)
[2022-03-25] MEDS: MAGNESIUM OXIDE 400 MG TABLET PO (08:30)
[2022-03-25 09:16] LABS: Basophils Absolute Auto 0.1 K/mm3 (0.0-0.1); Basophils Percent Auto 0.9 % (0.2-1.2); Eosinophils Absolute Auto 0.2 K/mm3 (0-0.3); Eosinophils Percent Auto 3.6 % (0-4.4); Hematocrit 34.9 % (37.0-47.0); Hemoglobin 11.2 g/dL (12.0-15.0); Immature Granulocyte Absolute 0.03 K/mm3 (0.00-0.031); Immature Granulocyte Percent A 0.6 % (0-0.5); Lymphocytes Absolute Auto 1.34 K/mm3 (0.9-3.2); Lymphocytes Percent Auto 25.4 % (18.3-44.2); Mean Corpuscular HGB Conc 32.1 g/dl (32-36); Mean Corpuscular Hemoglobin 32.4 pg (26-34); Mean Corpuscular Volume 100.9 fl (80-100); Mean Platelet Volume 10.3 fl (7.4-10.4); Monocytes Absolute Auto 0.3 K/mm3 (0.1-0.6); Monocytes Percent Auto 5.5 % (2.6-8.5); Neutrophils Absolute Auto 3.4 K/mm3 (1.3-6.7); Platelet Count Result 215 k/mm3 (150-375); Red Blood Count 3.46 M/mm3 (4.2-5.4); Red Cell Distribution Width 14.3 % (11.5-14.5); White Blood Count 5.3 K/mm3 (4.5-10.0)
[2022-03-25 09:18] LABS: Alanine Aminotransferase 50 U/L (6-35); Albumin Level 3.7 g/dL (3.5-5.1); Alkaline Phosphatase 189 U/L (38-126); Anion Gap 6 mmol/L (8-16); Aspartate Amino Transferase 63 U/L (14-36); Bilirubin,Total 0.3 mg/dL (0.2-1.3); Blood Urea Nitrogen 26 mg/dL (7-17); Calcium 8.5 mg/dL (8.4-10.2); Carbon Dioxide 29 mmol/L (22-30); Chloride 97 mmol/L (98-107); Estimated CRCL calculation 25 ml/min; Estimated Glomerular Filt Rate 27; Glucose 102 mg/dL (65-110); Potassium 3.3 mmol/L (3.4-5.0); Sodium 132 mmol/L (137-145)
--- NOTE | 2022-03-25 12:33 | PM.DS ---
DS: Admitting Diagnosis Discharge Date 03/25/22 Admitting Diagnosis swollen and red legs DS: Discharge Diagnosis Discharge Diagnosis (1) Bilateral lower leg cellulitis: Code(s): L03.116 - Cellulitis of left lower limb; L03.115 - Cellulitis of right lower limb Status: Acute (2) Hypertension: Code(s): I10 - Essential (primary) hypertension Status: Acute (3) Urinary tract infection: Qualifiers: Hematuria presence: with hematuria Urinary tract infection type: site unspecified Qualified Code(s): N39.0 - Urinary tract infection, site not specified; R31.9 - Hematuria, unspecified Code(s): N39.0 - Urinary tract infection, site not specified Status: Acute (4) DIVINA (obstructive sleep apnea): Onset Date: ~11/2018 Code(s): G47.33 - Obstructive sleep apnea (adult) (pediatric) Status: Acute (5) CKD (chronic kidney disease) stage 4, GFR 15-29 ml/min: Code(s): N18.4 - Chronic kidney disease, stage 4 (severe) Status: Acute (6) Anemia associated with chronic renal failure: Code(s): N18.9 - Chronic kidney disease, unspecified; D63.1 - Anemia in chronic kidney disease Status: Acute DS: Summary Hospital Course Reason for hospitalization: 81yo female here for bilateral lower extremity redness and edema. Please see HP for details. Hospital Course: She had edema, burning, itching and redness to bilateral lower extremities.? She does have peripheral neuropathy.? Her white count was normal.?Her creatinine is 1.6 with a baseline of 1.6-1.9.? Her CRP is 1.5.? BNP 3760.? She was found to be negative for influenza A/B and COVID.? Foot x-ray read as no acute osseous finding in the left or right foot.? Chest x-ray showing no acute cardiopulmonary disease. She did receive one dose of Lasix IV. LFTs mildly elevated but know recently and her PCP was aware. Repeat levels trending down. Defer to PCP for further evaluation. The patient was started on Ancef.?She feels well this morning. The redness is improved and edema is better. She feels ready for discharge. She overall did well and was able be discharged home on 03/25/2022. Status at Discharge Cognitive/behavioral status at discharge: Stable Time Spent with Patient Time attestation: Total time spent providing and/or coordinating discharge services: 35 minutes Time spent: Greater than 30 minutes Exam Narrative: AF 96.8 151/83 76 16 98% ra Gen - NARD Chest - CTA bilaterally, nml RR CV - RRR S1/S2 Abd - Soft, NT/ND, Positive BS Ext - minimal pedal edema Psych - Nml mood and affect Skin - mild bilateral LE erythema DS: Data Data Completed and Pending Labs on day of discharge: Labs from last 24 hours 03/25/22 03/25/22 03/24/22 09:02 09:02 16:25 WBC 5.3 RBC 3.46 L Hgb 11.2 L Hct 34.9 L MCV 100.9 H MCH 32.4 MCHC 32.1 RDW 14.3 Plt Count 215 MPV 10.3 Immature Gran % (Auto) 0.6 H Neut % (Auto) 64.0 Lymph % (Auto) 25.4 [place] % (Auto) 5.5 Eos % (Auto) 3.6 Baso % (Auto) 0.9 Lymph # (Auto) 1.34 [place] # (Auto) 0.3 Eos # (Auto) 0.2 Baso # (Auto) 0.1 Abs Immat Gran (auto) 0.03 Absolute Neuts (auto) 3.4 Absolute Nucleated RBC 0.0 Nucleated RBC % 0.0 Sodium 132 L Potassium 3.3 L Chloride 97 L Carbon Dioxide 29 Anion Gap 6 L BUN 26 H Creatinine 1.80 H Estim Creat Clear Calc 25 Estimated GFR 27 L Glucose 102 Lactic Acid Uric Acid Calcium 8.5 Total Bilirubin 0.3 AST 63 H ALT 50 H Alkaline Phosphatase 189 H C-Reactive Protein NT-Pro-B Natriuret Pep Total Protein 7.0 Albumin 3.7 Influenza A (RT-PCR) Negative Influenza B (RT-PCR) Negative SARS-CoV-2 RNA (RT-PCR) Negative 03/24/22 03/24/22 03/24/22 14:28 14:28 14:28 WBC 8.1 RBC 3.41 L Hgb 11.2 L Hct 34.6 L MCV 101.5 H MCH 32.8 MCHC 32.4 RDW 14.2 Plt C
--- NOTE | 2022-04-03 12:54 | PC.NURSE ---
Blood cx are negative. Dr. Lindsey tapia.
== END 2022-03-25 13:20 | disposition home or self-care (01) ==
LOC: ANHED 19:13 → ANH3MEDSUR 19:45
PROVIDERS: Admitting Provider Hospitalist; Emergency Provider General Practice; Visit Provider Internal Medicine
DX: L03.116 Cellulitis of left lower limb (principal); L03.115 Cellulitis of right lower limb; N39.0 Urinary tract infection, site not specified; G47.33 Obstructive sleep apnea (adult) (pediatric); I13.0 Hypertensive heart and chronic kidney disease with heart failure and stage 1 through stage 4 chronic kidney disease, or unspecified chronic kidney disease; E11.22 Type 2 diabetes mellitus with diabetic chronic kidney disease; N18.4 Chronic kidney disease, stage 4 (severe); C92.11 Chronic myeloid leukemia, BCR/ABL-positive, in remission; I50.30 Unspecified diastolic (congestive) heart failure; J44.9 Chronic obstructive pulmonary disease, unspecified; K21.9 Gastro-esophageal reflux disease without esophagitis; M10.9 Gout, unspecified; E78.5 Hyperlipidemia, unspecified; F41.8 Other specified anxiety disorders; Z20.822 Contact with and (suspected) exposure to COVID-19; I49.5 Sick sinus syndrome; Z86.16 Personal history of COVID-19; E55.9 Vitamin D deficiency, unspecified; G62.9 Polyneuropathy, unspecified; Z95.0 Presence of cardiac pacemaker; M81.0 Age-related osteoporosis without current pathological fracture; I48.0 Paroxysmal atrial fibrillation; Z87.891 Personal history of nicotine dependence; Z99.3 Dependence on wheelchair; Z99.89 Dependence on other enabling machines and devices; Z79.899 Other long term (current) drug therapy; Z82.49 Family history of ischemic heart disease and other diseases of the circulatory system; Z83.6 Family history of other diseases of the respiratory system
CPT/HCPCS: 36415; 71045; 73630; 80053; 83605; 83880; 84550; 85025; 86140; 87040; 87636; 96365; 96366; 96367; 96375; 99285; A9270; G0378; J0131; J0690; J1940

== ENCOUNTER 2022-06-24 09:17 | Outpatient (CLI) | payer MEDICARE, MEDICAID, SELFPAY ==
[2022-06-24 10:23] LABS: Alanine Aminotransferase 21 U/L (6-35); Albumin Level 4.2 g/dL (3.5-5.1); Alkaline Phosphatase 105 U/L (38-126); Anion Gap 6 mmol/L (8-16); Aspartate Amino Transferase 24 U/L (14-36); Bilirubin,Total 0.5 mg/dL (0.2-1.3); Blood Urea Nitrogen 41 mg/dL (7-17); Calcium 9.6 mg/dL (8.4-10.2); Carbon Dioxide 30 mmol/L (22-30); Chloride 98 mmol/L (98-107); Cholesterol 146 mg/dL (0-200); Estimated Glomerular Filt Rate 23; Glucose 93 mg/dL (65-110); HDL Direct 38 mg/dL; Potassium 4.5 mmol/L (3.4-5.0); Sodium 134 mmol/L (137-145); Triglycerides 109 mg/dL (<150)
[2022-06-24 10:36] LABS: LDL Cholesterol Direct 80 mg/dL
== END 2022-06-24 09:18 | disposition home or self-care (01) ==
PROVIDERS: PCP Internal Medicine; Visit Provider Nurse Practitioner
DX: E78.5 Hyperlipidemia, unspecified (principal); Z79.899 Other long term (current) drug therapy; I10 Essential (primary) hypertension
CPT/HCPCS: 36415; 80053; 80061

== ENCOUNTER 2022-07-17 19:23 | Emergency (ER) | payer MEDICARE, MEDICAID, SELFPAY ==
--- NOTE | ~2022-07-17 | XR_ITS ---
EXAMINATION: XR chest 2V Exam Date/Time: 07/17/2022 19:45 CDT HISTORY: cough HX COPD, PACEMAKER Comparison: 03/24/2022. RESULT: Lines, tubes, and devices: Left chest pacer with intact leads. Lungs and pleura: Clear. Cardiomediastinal silhouette: Stable. Other: No acute osseous or upper abdominal finding. IMPRESSION: No acute cardiopulmonary process. Reviewed, dictated and finalized at location K.
[2022-07-17 19:26] VITALS: BP 187/103; PULSE 69; RESP 20; TEMP 36.5; O2SAT 99
--- NOTE | 2022-07-17 19:30 | ECG_ITS ---
Measurements Intervals [place] Rate: 66 P: 175 TN: 228 QRS: 1 QRSD: 102 T: 48 QT: 430 QTc: 452 Interpretive Statements ELECTRONIC ATRIAL PACEMAKER LOW QRS VOLTAGE IN PRECORDIAL LEADS BORDERLINE R WAVE PROGRESSION, ANTERIOR LEADS BORDERLINE ECG COMPARED TO ECG 03/14/2022 14:19:59 ATRIAL PACEMAKER NOW PRESENT Electronically Signed On 07-17-2022 19:55:45 CDT by Mike Savage D.O.
[2022-07-17 20:12] VITALS: O2SAT 98
[2022-07-17 20:19] LABS: Influenza A QL RT-PCR Negative (Negative); Influenza B QL RT-PCR Negative (Negative); RSV RNA, RT-PCR Positive (Negative); SARS-CoV-2 RNA PCR Negative (Negative)
--- NOTE | 2022-07-17 20:40 | ED.URI ---
HPI - URI/Sore Throat General Chief Complaint: Upper Respiratory Infection Stated Complaint: cold sx Time Seen by Provider: 07/17/22 20:03 History of Present Illness HPI Narrative: Patient is an 82-year-old female with a history of COPD, CHF, CKD presenting with cough. Patient states that for the last 5 days she has had a nonproductive dry cough. States that she has been feeling short of breath and has some right-sided chest pain. States that she has been using her inhaler with minimal relief. States that she is concerned that she has pneumonia. She denies fevers, lightheadedness, abdominal pain, nausea or vomiting, diarrhea, dysuria, leg swelling. Related Data Home Medications Medication Instructions Recorded Confirmed cholecalciferol (vitamin D3) 50 50 mcg PO DAILY 09/27/20 06/14/22 mcg (2,000 unit) tablet cyanocobalamin (vitamin B-12) 2,500 mcg sublingual DAILY 09/27/20 06/14/22 2,500 mcg sublingual tablet melatonin 5 mg tablet 5 mg PO HS 09/27/20 06/14/22 potassium chloride 20 mEq 20 meq PO DAILY 09/27/20 06/14/22 tablet,extended release Macutene 1 ophthalmic insert BYMOUTH BID 02/28/22 06/14/22 guaifenesin 600 mg tablet, 1,200 mg PO Q12HR PRN Congestion 02/28/22 06/14/22 extended release 12 hr (Mucus Relief ER) isosorbide mononitrate 30 mg 30 mg PO QAM 02/28/22 06/14/22 tablet,extended release 24 hr multivitamin 1 tablet PO DAILY 02/28/22 06/14/22 simvastatin 40 mg tablet 40 mg PO HS 02/28/22 06/14/22 vit C 250 mg-vit E 90 mg-zinc 40 1 tablet PO BID 02/28/22 06/14/22 mg-copper 1 nd-pzwqox-denito capsule (PreserVision AREDS-2) Allergies Allergy/AdvReac Type Severity Reaction Status Date / Time NORAM Inhibitors Allergy Intermediate Rash Verified 07/05/22 13:23 azithromycin Allergy Intermediate Itching Verified 07/05/22 13:23 lisinopril Allergy Intermediate RASH? Verified 07/05/22 13:23 nitroglycerin Allergy Intermediate SKIN RASH Verified 07/05/22 13:23 UNDER NITRO PATCH phenazopyridine Allergy Unknown Unknown Verified 07/05/22 13:23 Review of Systems Review of Systems: All systems reviewed & are unremarkable except as noted in HPI and below PMFSH Past Medical History Medical History Anemia of chronic disease Benign essential hypertension Chronic obstructive pulmonary disease, unspecified CKD (chronic kidney disease) stage 4, GFR 15-29 ml/min CML (chronic myelocytic leukemia) in remission since 2016 COVID-19 Depression with anxiety Diastolic CHF echo August 2017 GERD (gastroesophageal reflux disease) Gout Hyperlipidemia DIVINA (obstructive sleep apnea) (~11/2018) BiPAP 12/20 Osteoporosis Paroxysmal A-fib Peripheral neuropathy Pneumonia due to COVID-19 virus Screening for breast cancer Sick sinus syndrome Suspected COVID-19 virus infection Umbilical hernia without obstruction and without gangrene Vitamin D deficiency Surgical History Surgical History Cardiac pacemaker in situ (~08/2017) History of appendectomy History of bladder surgery History of colonoscopy with polypectomy History of melanoma excision right nares History of total hysterectomy with bilateral salpingo-oophorectomy (BSO) History of total right knee replacement (~10/2008) Status post cataract extraction of both eyes with insertion of intraocular lens Status post cholecystectomy Family History Family History Mother Hypertension Breast cancer Heart disease Father Coronary artery disease Sibling Congestive heart failure Heart disease Lung cancer brother Bone cancer sister Son COPD (chronic obstructive pulmonary disease) 2 sons Other Family history of tuberculosis Social History Social History Social History: she had 6 children and 1 passed aw
[2022-07-17] MEDS: methylPREDNISolone SOD SUCC 125 MG VIAL IV PUSH (20:41)
[2022-07-17 20:52] LABS: Basophils Percent Auto 0.4 % (0.2-1.2); Eosinophils Absolute Auto 0.1 K/mm3 (0-0.3); Eosinophils Percent Auto 2.9 % (0-4.4); Hematocrit 34.6 % (37.0-47.0); Hemoglobin 11.5 g/dL (12.0-15.0); Immature Granulocyte Absolute 0.01 K/mm3 (0.00-0.031); Immature Granulocyte Percent A 0.2 % (0-0.5); Lymphocytes Absolute Auto 0.98 K/mm3 (0.9-3.2); Lymphocytes Percent Auto 21.8 % (18.3-44.2); Mean Corpuscular HGB Conc 33.2 g/dl (32-36); Mean Corpuscular Hemoglobin 33.4 pg (26-34); Mean Corpuscular Volume 100.6 fl (80-100); Mean Platelet Volume 10.2 fl (7.4-10.4); Monocytes Absolute Auto 0.5 K/mm3 (0.1-0.6); Monocytes Percent Auto 11.6 % (2.6-8.5); Neutrophils Absolute Auto 2.8 K/mm3 (1.3-6.7); Neutrophils Percent Auto 63.1 % (45.5-73.1); Platelet Count Result 154 k/mm3 (150-375); Red Blood Count 3.44 M/mm3 (4.2-5.4); Red Cell Distribution Width 13.6 % (11.5-14.5); White Blood Count 4.5 K/mm3 (4.5-10.0)
[2022-07-17 21:03] LABS: Alanine Aminotransferase 29 U/L (6-35); Alkaline Phosphatase 95 U/L (38-126); Anion Gap 7 mmol/L (8-16); Aspartate Amino Transferase 28 U/L (14-36); Bilirubin,Total 0.4 mg/dL (0.2-1.3); Blood Urea Nitrogen 29 mg/dL (7-17); Calcium 9.4 mg/dL (8.4-10.2); Carbon Dioxide 30 mmol/L (22-30); Chloride 99 mmol/L (98-107); Estimated CRCL calculation 26 ml/min; Estimated Glomerular Filt Rate 29; Glucose 94 mg/dL (65-110); Potassium 4.3 mmol/L (3.4-5.0); Sodium 136 mmol/L (137-145)
[2022-07-17] MEDS: IPRATROPIUM BR 0.02% INH SOLN 0.5 MG/2.5 ML VIAL INHALATION (21:11)
[2022-07-17] MEDS: LEVALBUTEROL NEB 1.25 MG/3 ML 2.5 MG INHALATION (21:11)
[2022-07-17 21:12] VITALS: PULSE 69; RESP 19
[2022-07-17 21:14] LABS: Troponin I 0.016 ng/mL (0.000-0.034)
[2022-07-17 21:20] VITALS: PULSE 72; RESP 19
[2022-07-17] MEDS: SULFAMETHOXAZOLE/TRIMETHOPRIM 800/160 MG DS TABLET 1 TAB PO (21:43)
[2022-07-17 21:44] VITALS: BP 167/92; PULSE 67; RESP 22; O2SAT 97
== END 2022-07-17 21:51 | disposition home or self-care (01) ==
PROVIDERS: Emergency Provider Emergency Medicine; PCP Nurse Practitioner
DX: J44.1 Chronic obstructive pulmonary disease with (acute) exacerbation (principal); J22 Unspecified acute lower respiratory infection; B97.4 Respiratory syncytial virus as the cause of diseases classified elsewhere; Z20.822 Contact with and (suspected) exposure to COVID-19; N18.4 Chronic kidney disease, stage 4 (severe); I50.30 Unspecified diastolic (congestive) heart failure; D63.8 Anemia in other chronic diseases classified elsewhere; C92.11 Chronic myeloid leukemia, BCR/ABL-positive, in remission; G47.33 Obstructive sleep apnea (adult) (pediatric); I48.0 Paroxysmal atrial fibrillation; E78.5 Hyperlipidemia, unspecified; E55.9 Vitamin D deficiency, unspecified; G62.9 Polyneuropathy, unspecified; K21.9 Gastro-esophageal reflux disease without esophagitis; M10.9 Gout, unspecified; Z87.01 Personal history of pneumonia (recurrent); Z86.16 Personal history of COVID-19; Z85.820 Personal history of malignant melanoma of skin; Z87.891 Personal history of nicotine dependence; Z95.0 Presence of cardiac pacemaker; Z96.651 Presence of right artificial knee joint; Z90.710 Acquired absence of both cervix and uterus; Z90.722 Acquired absence of ovaries, bilateral; Z90.79 Acquired absence of other genital organ(s); Z79.01 Long term (current) use of anticoagulants
CPT/HCPCS: 36415; 71046; 80053; 84484; 85025; 87637; 93005; 94640; 96365; 96375; 99284; A9270; J0131; J2930

== ENCOUNTER 2022-12-02 10:27 | Outpatient (CLI) | payer MEDICARE, MEDICAID, SELFPAY ==
--- NOTE | ~2022-12-02 | XR_ITS ---
EXAMINATION: XR abdomen/kub 1V DATE: 12/02/2022 10:44 INDICATION: Kidney stones. TECHNIQUE: A supine view of the abdomen on 2 radiographs was obtained. COMPARISON: Abdomen radiograph 10/27/2020, CT abdomen and pelvis 01/16/2022 FINDINGS: There are no dilated loops of bowel. The kidneys are obscured by bowel. There is a 6 mm sto ne in right kidney. There is a phlebolith in right pelvis. There are pacer wires in right atrium and right ventricle. IMPRESSION: 1. 6 mm right kidney stone. Reviewed, dictated and finalized at location E. IMPRESSION: 1. 6 mm right kidney stone.
== END 2022-12-02 10:28 | disposition home or self-care (01) ==
LOC: ANHIMG 10:31
PROVIDERS: PCP Family Medicine; Visit Provider Urology
DX: N20.0 Calculus of kidney (principal)
CPT/HCPCS: 74018

== ENCOUNTER 2023-05-19 17:23 | Emergency (ER) | payer MEDICARE, MEDICAID, SELFPAY ==
--- NOTE | ~2023-05-19 | CT_ITS ---
EXAMINATION: CT abdomen pelvis wo con DATE: 05/19/2023 19:44 INDICATION: abdominal pain TECHNIQUE: Computed tomography (CT) of the abdomen and pelvis was performed without intravenous contr ast. Automated exposure control and iterative reconstruction technique were employed. The dose-length product was 1070.61 mGy-cm. COMPARISON: 01/16/2022. FINDINGS: Lower thorax: Coronary artery calcifications. Pacer leads, in good position. Liver: Normal. Biliary/Gallbladder: Gallbladder is absent. No bile duct dilation. Pancreas: Pancreatic atrophy Spleen: Normal. Adrenals:No mass. Kidneys: Severe right renal atrophy. Mild left renal atrophy. Moderate bilateral perinephric strandin g. Simple right upper pole cyst. Right pelvocaliectasis, chronic right UPJ obstruction. 4 mm nonobstr ucting right lower pole calcifications. Punctate nonobstructing left upper pole calcification. GI tract: No small or large bowel dilation. Mostly fluid-filled colon. Appendix not confidently visua lized Diverticulosis without diverticulitis. Mesentery/Peritoneum: No ascites, mass, or free air. Retroperitoneum: No mass. Atherosclerotic abdominal aortic and/or arterial calcifications. Pelvis: Absent uterus. Ovaries not confidently visualized. Empty urinary bladder.. Soft Tissues: Uncomplicated fat-containing infraumbilical ventral hernia. Bones: No acute osseous finding. IMPRESSION: Mostly fluid-filled colon, as can be seen with diarrheal illness. Otherwise, no acute abdominopelvic process detected. Reviewed, dictated and finalized at location K. ROUND [employer]GGER
[2023-05-19 17:35] VITALS: BP 149/88; PULSE 76; RESP 20; TEMP 36.1; O2SAT 99
--- NOTE | 2023-05-19 17:46 | ED.GENADULT ---
HPI - General Adult General Chief complaint: Nausea/Vomiting/Diarrhea <Cat Collier July, HAND MOLD MAKER - Last Filed: 05/19/23 17:52> Stated complaint: diarrhea <Cat Collier July, - Last Filed: 05/19/23 17:52> Time Seen by Provider: 05/19/23 17:46 <Cat Collier July, HAND MOLD MAKER - Last Filed: 05/19/23 17:52> Focused HPI: Edel Rush is an 82 y/o female who presents today [facility] reports of having diarrhea now for 2 weeks, she noticed bright red blood in the beginning and now brown foamy and no warning when she needs to go. She also states she is having severe abdominal pain upper to the lower. + chills but has not had a fever/ Denies N/V - Last ate at around 1330. GENERAL: Well-appearing, well-nourished, and in no acute distress. HEAD: Normocephalic, atraumatic. CHEST: Clear to auscultation. ?No respiratory distress. HEART: Regular rate and rhythm.? NEURO: ?Alert and oriented x3. Patient screened in triage and initial orders placed.? ?Additional care and disposition to be based upon?diagnostic testing and treatment. <Cat Collier July, - Last Filed: 05/19/23 17:52> Related Data Home medications: Home Medications Medication Instructions Recorded Confirmed cholecalciferol (vitamin D3) 50 50 mcg PO DAILY 09/27/20 05/19/23 mcg (2,000 unit) tablet cyanocobalamin (vitamin B-12) 2,500 mcg sublingual DAILY 09/27/20 05/19/23 2,500 mcg sublingual tablet melatonin 5 mg tablet 5 mg PO HS 09/27/20 05/19/23 potassium chloride 20 mEq 20 meq PO DAILY 09/27/20 05/19/23 tablet,extended release Macutene 1 ophthalmic insert BYMOUTH BID 02/28/22 05/19/23 guaifenesin 600 mg tablet, 1,200 mg PO Q12HR PRN Congestion 02/28/22 05/19/23 extended release 12 hr (Mucus Relief ER) multivitamin 1 tablet PO DAILY 02/28/22 11/19/22 vit C 250 mg-vit E 90 mg-zinc 40 1 tablet PO BID 02/28/22 05/19/23 mg-copper 1 yx-[id number]-qaukoc capsule (PreserVision AREDS-2) <Cat Alves, HAND MOLD MAKER - Last Filed: 05/19/23 17:52> Allergies/adverse reactions: Allergies Allergy/AdvReac Type Severity Reaction Status Date / Time NORMA Inhibitors Allergy Intermediate Rash Verified 05/31/23 11:50 azithromycin Allergy Intermediate Itching Verified 05/31/23 11:50 ceftriaxone Allergy Intermediate Hives Verified 05/31/23 11:50 lisinopril Allergy Intermediate RASH? Verified 05/31/23 11:50 nitroglycerin Allergy Intermediate SKIN RASH Verified 05/31/23 11:50 UNDER NITRO PATCH phenazopyridine Allergy Unknown Unknown Verified 05/31/23 11:50 <Cat Collier July, HAND MOLD MAKER - Last Filed: 05/19/23 17:52> Review of Systems Review of Systems: All systems reviewed & are unremarkable except as noted in HPI and below <Dangelo Blanco MD - Last Filed: 06/03/23 10:33> [facility] Past Medical History Medical History: Medical History Anemia of chronic disease Benign essential hypertension Chronic obstructive pulmonary disease, unspecified CKD (chronic kidney disease) stage 4, GFR 15-29 ml/min CML (chronic myelocytic leukemia) in remission since 2017 COVID-19 Depression with anxiety Diastolic CHF echo August 2017 GERD (gastroesophageal reflux disease) Gout Hyperlipidemia DIVINA (obstructive sleep apnea) (~11/2018) BiPAP 12/20 Osteoporosis Paroxysmal A-fib Peripheral neuropathy Pneumonia due to COVID-19 virus Screening for breast cancer Sick sinus syndrome Suspected COVID-19 virus infection Umbilical hernia without obstruction and without gangrene Vitamin D deficiency <Cat Alves, HAND MOLD MAKER - Last Filed: 05/19/23 17:52> Surgical History Surgical History: Surgical History Cardiac pacemaker in situ (~08/2017) History of appendectomy History of bladder surgery History of colonoscopy with polypectomy History of melanoma excision right nares History of total hysterectomy with bilateral salpingo-oophorectomy (BSO) History of total right knee repla
[2023-05-19 18:16] VITALS: BP 148/103; PULSE 75; RESP 11; O2SAT 96
[2023-05-19 18:45] LABS: Basophils Absolute Auto 0.1 K/mm3 (0.0-0.1); Basophils Percent Auto 0.7 % (0.2-1.2); Eosinophils Absolute Auto 0.4 K/mm3 (0-0.3); Eosinophils Percent Auto 4.2 % (0-4.4); Hematocrit 36.8 % (37.0-47.0); Hemoglobin 11.5 g/dL (12.0-15.0); Immature Granulocyte Absolute 0.03 K/mm3 (0.00-0.031); Immature Granulocyte Percent A 0.4 % (0-0.5); Lymphocytes Percent Auto 24.8 % (18.3-44.2); Mean Corpuscular HGB Conc 31.3 g/dl (32-36); Mean Corpuscular Hemoglobin 31.6 pg (26-34); Mean Corpuscular Volume 101.1 fl (80-100); Mean Platelet Volume 10.3 fl (7.4-10.4); Monocytes Absolute Auto 0.7 K/mm3 (0.1-0.6); Monocytes Percent Auto 8.4 % (2.6-8.5); Neutrophils Absolute Auto 5.2 K/mm3 (1.3-6.7); Neutrophils Percent Auto 61.5 % (45.5-73.1); Platelet Count Result 231 k/mm3 (150-375); Red Blood Count 3.64 M/mm3 (4.2-5.4); Red Cell Distribution Width 13.6 % (11.5-14.5); White Blood Count 8.5 K/mm3 (4.5-10.0)
[2023-05-19 19:12] LABS: Alanine Aminotransferase 16 U/L (6-35); Albumin Level 4.1 g/dL (3.5-5.1); Alkaline Phosphatase 134 U/L (38-126); Anion Gap 8 mmol/L (8-16); Aspartate Amino Transferase 24 U/L (14-36); Bilirubin,Total 0.4 mg/dL (0.2-1.3); Blood Urea Nitrogen 33 mg/dL (7-17); Calcium 9.6 mg/dL (8.4-10.2); Carbon Dioxide 22 mmol/L (22-30); Chloride 107 mmol/L (98-107); Estimated CRCL calculation 23 ml/min; Estimated Glomerular Filt Rate 25; Glucose 99 mg/dL (65-110); Lipase 175 U/L (23-300); Potassium 4.1 mmol/L (3.4-5.0); Sodium 137 mmol/L (137-145)
[2023-05-19] MEDS: BELLADONNA ALK/PHENOB ELIX 10 ML, MAG HYDROX/ALUMINUM HYD/SIMETH 30 ML, LIDOCAINE HCL 2... PO (19:30)
[2023-05-19] MEDS: PANTOPRAZOLE SODIUM IV 40 MG VIAL IV PUSH (19:31)
[2023-05-19 19:54] LABS: Appearance Urine Cloudy (Clear); Bacteria Urine 4+ /hpf; Bilirubin Urine Negative (Negative); Blood Urine 2+ (Negative); Color Urine Yellow (Yellow); Glucose Urine UA Negative (Negative); Ketones Urine Negative (Negative); Leukocyte Esterase Ur 3+ LEU/UL (Negative); Nitrate Urine Negative (Negative); Non Pathogenic Casts 0-2; Protein Urine 1+ mg/dL (Negative); RBC Urine 21-50 /hpf (0-2); Specific Grav Ur 1.013 (1.001-1.035); Squamous Epithelial Cell Urine None seen /hpf (Few); Urobilinogen Urine 0.2 mg/dL (<2.0); WBC Urine >100 /hpf
[2023-05-19 20:01] LABS: Add Urine Microscopic? YES
[2023-05-19] MEDS: diphenhydrAMINE HCl INJ 50 MG/ML VIAL 25 MG IV PUSH (21:14)
--- NOTE | 2023-05-19 21:20 | PC.NURSE ---
Pt started itching all over while receiving the Rocephin via IV. Rocephin drip was stopped, EDP made aware. Benadryl was give IV push per Dr. Blanco's order. Pt's vital signs are stable and she is not itching anymore.
[2023-05-19 21:23] VITALS: BP 140/88; PULSE 91; RESP 16; O2SAT 96
== END 2023-05-19 21:31 | disposition home or self-care (01) ==
PROVIDERS: Nurse Practitioner Family; Emergency Provider Emergency Medicine; PCP Nurse Practitioner
DX: N39.0 Urinary tract infection, site not specified (principal); R19.7 Diarrhea, unspecified; C92.11 Chronic myeloid leukemia, BCR/ABL-positive, in remission; I13.0 Hypertensive heart and chronic kidney disease with heart failure and stage 1 through stage 4 chronic kidney disease, or unspecified chronic kidney disease; N18.4 Chronic kidney disease, stage 4 (severe); I50.30 Unspecified diastolic (congestive) heart failure; I48.0 Paroxysmal atrial fibrillation; J44.9 Chronic obstructive pulmonary disease, unspecified; G47.33 Obstructive sleep apnea (adult) (pediatric); G62.9 Polyneuropathy, unspecified; E55.9 Vitamin D deficiency, unspecified; K21.9 Gastro-esophageal reflux disease without esophagitis; M81.0 Age-related osteoporosis without current pathological fracture; M10.9 Gout, unspecified; Z66 Do not resuscitate; Z95.0 Presence of cardiac pacemaker; Z96.651 Presence of right artificial knee joint; Z87.01 Personal history of pneumonia (recurrent); Z86.16 Personal history of COVID-19; Z85.820 Personal history of malignant melanoma of skin; Z87.891 Personal history of nicotine dependence; Z90.710 Acquired absence of both cervix and uterus; Z90.722 Acquired absence of ovaries, bilateral; Z90.79 Acquired absence of other genital organ(s); Z90.49 Acquired absence of other specified parts of digestive tract; Z96.1 Presence of intraocular lens; Z98.42 Cataract extraction status, left eye; Z98.41 Cataract extraction status, right eye
CPT/HCPCS: 36415; 74176; 80053; 81001; 83605; 83690; 85025; 87077; 87086; 87186; 96365; 96375; 99284; A9270; C9113; J0696; J1200

== ENCOUNTER 2023-05-31 11:04 | Emergency (ER) | payer MEDICARE, MEDICAID, SELFPAY ==
[2023-05-31] VITALS (9 sets, daily range): BP systolic 115–173; BP diastolic 69–80; PULSE 66–74; RESP 16–28; TEMP 36.6–37; O2SAT 98–100
--- NOTE | ~2023-05-31 | XR_ITS ---
EXAMINATION: XR chest 2V DATE: 05/31/2023 13:53 INDICATION: Shortness of breath. Nonproductive cough. TECHNIQUE: PA and lateral views of the chest were obtained. COMPARISON: Chest radiograph dated 07/17/2022 FINDINGS: The lungs are clear with no focal airspace opacities, pulmonary edema, pleural effusion or pneumothor ax. The cardiomediastinal silhouette is normal. Dual lead pacemaker seen with leads projecting over t he expected locations of the right atrium and right ventricle. Chronic compression fractures at the t horacolumbar junction where there is also severe spondylosis. IMPRESSION: 1. No acute cardiopulmonary disease. Reviewed, dictated and finalized at location A.
[2023-05-31] MEDS: IPRATROPIUM BR 0.02% INH SOLN 0.5 MG/2.5 ML VIAL 1 MG INHALATION (12:29)
[2023-05-31] MEDS: ALBUTEROL SULFATE NEB 2.5 MG/3 ML INH 10 MG INHALATION (12:29)
[2023-05-31 12:43] LABS: Basophils Absolute Auto 0.1 K/mm3 (0.0-0.1); Basophils Percent Auto 0.8 % (0.2-1.2); Eosinophils Percent Auto 0.3 % (0-4.4); Hematocrit 32.8 % (37.0-47.0); Hemoglobin 10.8 g/dL (12.0-15.0); Immature Granulocyte Absolute 0.02 K/mm3 (0.00-0.031); Immature Granulocyte Percent A 0.3 % (0-0.5); Lymphocytes Absolute Auto 1.15 K/mm3 (0.9-3.2); Lymphocytes Percent Auto 16.1 % (18.3-44.2); Mean Corpuscular HGB Conc 32.9 g/dl (32-36); Mean Corpuscular Volume 97.3 fl (80-100); Mean Platelet Volume 10.4 fl (7.4-10.4); Monocytes Absolute Auto 0.8 K/mm3 (0.1-0.6); Monocytes Percent Auto 11.5 % (2.6-8.5); Neutrophils Absolute Auto 5.1 K/mm3 (1.3-6.7); Platelet Count Result 196 k/mm3 (150-375); Red Blood Count 3.37 M/mm3 (4.2-5.4); Red Cell Distribution Width 13.7 % (11.5-14.5); White Blood Count 7.2 K/mm3 (4.5-10.0)
[2023-05-31 12:54] LABS: Alanine Aminotransferase 15 U/L (6-35); Alkaline Phosphatase 133 U/L (38-126); Anion Gap 5 mmol/L (8-16); Aspartate Amino Transferase 21 U/L (14-36); Bilirubin,Total 0.4 mg/dL (0.2-1.3); Blood Urea Nitrogen 41 mg/dL (7-17); Calcium 9.7 mg/dL (8.4-10.2); Carbon Dioxide 27 mmol/L (22-30); Chloride 105 mmol/L (98-107); Estimated CRCL calculation 31 ml/min; Estimated Glomerular Filt Rate 36; Glucose 94 mg/dL (65-110); Potassium 4.5 mmol/L (3.4-5.0); Sodium 137 mmol/L (137-145)
[2023-05-31 13:02] LABS: NT Pro B Type Natriuretic Pept 1670 pg/mL (19.9-100)
--- NOTE | 2023-05-31 14:12 | ED.GENADULT ---
HPI - General Adult General Chief complaint: Upper Respiratory Infection Stated complaint: Cough Time Seen by Provider: 05/31/23 11:47 History of Present Illness HPI narrative: patient is an 82-year-old female with history of COPD and CHF who presents ER with shortness of breath. Reports she has had a cold over the last week. She feels like she has deep chest congestion and she cannot get up. She has wheezing breathing. No fevers or chills. No chest pain. she was not require O2 chronically. Patient was recently on Augmentin and doxycycline. She reports that It was for cellulitis but it also would have treated pneumonia. Related Data Home Medications Medication Instructions Recorded Confirmed cholecalciferol (vitamin D3) 50 50 mcg PO DAILY 09/27/20 05/19/23 mcg (2,000 unit) tablet cyanocobalamin (vitamin B-12) 2,500 mcg sublingual DAILY 09/27/20 05/19/23 2,500 mcg sublingual tablet melatonin 5 mg tablet 5 mg PO HS 09/27/20 05/19/23 potassium chloride 20 mEq 20 meq PO DAILY 09/27/20 05/19/23 tablet,extended release Macutene 1 ophthalmic insert BYMOUTH BID 02/28/22 05/19/23 guaifenesin 600 mg tablet, 1,200 mg PO Q12HR PRN Congestion 02/28/22 05/19/23 extended release 12 hr (Mucus Relief ER) multivitamin 1 tablet PO DAILY 02/28/22 11/19/22 vit C 250 mg-vit E 90 mg-zinc 40 1 tablet PO BID 02/28/22 05/19/23 mg-copper 1 pg-bpsmut-sjjsto capsule (PreserVision AREDS-2) Allergies Allergy/AdvReac Type Severity Reaction Status Date / Time NORMA Inhibitors Allergy Intermediate Rash Verified 05/31/23 11:50 azithromycin Allergy Intermediate Itching Verified 05/31/23 11:50 ceftriaxone Allergy Intermediate Hives Verified 05/31/23 11:50 lisinopril Allergy Intermediate RASH? Verified 05/31/23 11:50 nitroglycerin Allergy Intermediate SKIN RASH Verified 05/31/23 11:50 UNDER NITRO PATCH phenazopyridine Allergy Unknown Unknown Verified 05/31/23 11:50 Review of Systems Review of Systems: All systems reviewed & are unremarkable except as noted in HPI and below Constitutional: Constitutional: Reports no additional constitutional complaints ENT: Reports system reviewed and no additional complaints, except as documented Cardiovascular: Cardiovascular: Reports no additional cardiovascular complaints Respiratory: Respiratory: Reports cough, Reports dyspnea and Reports wheezing Gastrointestinal: Gastrointestinal: Reports no additional gastrointestinal complaints Genitourinary: Genitourinary: Reports no additional female genitourinary complaints [facility] Past Medical History Medical History Anemia of chronic disease Benign essential hypertension Chronic obstructive pulmonary disease, unspecified CKD (chronic kidney disease) stage 4, GFR 15-29 ml/min CML (chronic myelocytic leukemia) in remission since 2016 COVID-19 Depression with anxiety Diastolic CHF echo August 2017 GERD (gastroesophageal reflux disease) Gout Hyperlipidemia DIVINA (obstructive sleep apnea) (~11/2018) BiPAP 12/20 Osteoporosis Paroxysmal A-fib Peripheral neuropathy Pneumonia due to COVID-19 virus Screening for breast cancer Sick sinus syndrome Suspected COVID-19 virus infection Umbilical hernia without obstruction and without gangrene Vitamin D deficiency Surgical History Surgical History Cardiac pacemaker in situ (~08/2017) History of appendectomy History of bladder surgery History of colonoscopy with polypectomy History of melanoma excision right nares History of total hysterectomy with bilateral salpingo-oophorectomy (BSO) History of total right knee replacement (~10/2008) Status post cataract extraction of both eyes with insertion of intraocular lens Status post cholecystectomy Family History Family History Mother Hypertension Breast cancer Heart dise
== END 2023-05-31 15:16 | disposition home or self-care (01) ==
PROVIDERS: Emergency Provider Emergency Medicine; PCP Nurse Practitioner
DX: J40 Bronchitis, not specified as acute or chronic (principal); J44.9 Chronic obstructive pulmonary disease, unspecified; I13.0 Hypertensive heart and chronic kidney disease with heart failure and stage 1 through stage 4 chronic kidney disease, or unspecified chronic kidney disease; N18.4 Chronic kidney disease, stage 4 (severe); I50.30 Unspecified diastolic (congestive) heart failure; I48.0 Paroxysmal atrial fibrillation; D63.8 Anemia in other chronic diseases classified elsewhere; C92.11 Chronic myeloid leukemia, BCR/ABL-positive, in remission; E78.5 Hyperlipidemia, unspecified; E55.9 Vitamin D deficiency, unspecified; K21.9 Gastro-esophageal reflux disease without esophagitis; G47.33 Obstructive sleep apnea (adult) (pediatric); G62.9 Polyneuropathy, unspecified; M81.0 Age-related osteoporosis without current pathological fracture; M10.9 Gout, unspecified; Z66 Do not resuscitate; Z95.0 Presence of cardiac pacemaker; Z96.651 Presence of right artificial knee joint; Z85.820 Personal history of malignant melanoma of skin; Z87.891 Personal history of nicotine dependence; Z86.16 Personal history of COVID-19; Z87.01 Personal history of pneumonia (recurrent); Z96.1 Presence of intraocular lens; Z98.42 Cataract extraction status, left eye; Z98.41 Cataract extraction status, right eye; Z90.49 Acquired absence of other specified parts of digestive tract; Z79.01 Long term (current) use of anticoagulants
CPT/HCPCS: 36415; 71046; 80053; 83880; 85025; 94640; 99283

== ENCOUNTER 2023-09-17 15:24 | Outpatient (CLI) | payer MEDICARE, MEDICAID, SELFPAY ==
[2023-09-17 16:16] LABS: Appearance Urine Cloudy (Clear); Bacteria Urine 4+ /hpf; Bilirubin Urine Negative (Negative); Blood Urine Negative (Negative); Color Urine Yellow (Yellow); Glucose Urine UA Negative (Negative); Ketones Urine Negative (Negative); Leukocyte Esterase Ur 3+ LEU/UL (Negative); Nitrate Urine Positive (Negative); Non Pathogenic Casts 0-2; Protein Urine Trace mg/dL (Negative); RBC Urine 0-2 /hpf (0-2); Specific Grav Ur 1.009 (1.001-1.035); Squamous Epithelial Cell Urine None Seen /hpf (Few); Urobilinogen Urine 0.2 mg/dL (<2.0); WBC Urine >100 /hpf (0-3)
[2023-09-17 16:34] LABS: Add Urine Microscopic? YES
== END 2023-09-17 15:25 | disposition home or self-care (01) ==
LOC: ANHLAB 15:27
PROVIDERS: PCP Family Medicine; Visit Provider Nurse Practitioner Family
DX: R30.0 Dysuria (principal); R10.9 Unspecified abdominal pain
CPT/HCPCS: 81001; 87077; 87086; 87088; 87186